=== PATIENT | male | born 1975 | race Caucasian/White ===

== ENCOUNTER 2016-12-15 19:35 | Emergency (ER) | payer SELFPAY ==
[~2016-12-15] VITALS: Ht 172.7 cm; Wt 117.9 kg
[~2016-12-15 19:35] MED LIST: ALPR0.5T PO; APIX5TAB3 PO; ASPI325T8 PO; ATORVASTATIN CA80 MG PO; CARV25TA2 PO; CHOL100013 PO; FISH12002 PO; HYDR-2762 PO; LISI10TA2 PO; PRAS10TA9 PO; UBID30CA9 PO
[2016-12-15] MEDS ORDERED: ONDANSETRON ODT 4 MG TAB.RAPDIS ONE (19:44)
[2016-12-15] MEDS ORDERED: ASPIRIN 81 MG TAB.CHEW ONE (19:45)
[2016-12-15] MEDS ORDERED: IV NORMAL SALINE 1,000ML 500 ML IV SCH (19:55)
[2016-12-15] MEDS ORDERED: MORPHINE SULFATE 4 MG/ML DISP.SYRIN. ONE (19:55)
[2016-12-15] MEDS ORDERED: NITROGLYCERIN SUBLINGUAL 0.4 MG BOTTLE OF 25. SL ONE (19:55)
[2016-12-15] MEDS: MORPHINE SULFATE 4 MG/ML DISP.SYRIN. IV/SQ PRN ×2 (19:56→20:50)
[2016-12-15] MEDS: NITROGLYCERIN SUBLINGUAL 0.4 MG BOTTLE OF 25. SL PRN ×2 (19:56→20:36)
[2016-12-15 20:14] LABS: BASO # 0.2 x10^3/uL (0.0-0.2); BASO % 1 % (0-3); EOS % 0 % (0-3); HEMATOCRIT 52.7 % (39.0-53.0); LYMPH # 1.7 x10^3/uL (1.0-4.8); LYMPH % 10 % (24-48); MEAN CORPUSCULAR HEMOGLOBIN 31 pg (25-35); MEAN CORPUSCULAR HGB CONC 34 g/dL (31-37); MEAN CORPUSCULAR VOLUME 90 fL (79-100); MONO # 0.5 x10^3/uL (0.0-1.1); MONO % 3 % (0-9); NEUT # 15.3 x10^3uL (1.8-7.7); NEUT % 87 % (31-73); PLATELET COUNT 231 x10^3/uL (140-400); RED BLOOD COUNT 5.85 x10^6/uL (4.30-5.70); RED CELL DISTRIBUTION WIDTH 13.5 % (11.5-14.5); WHITE BLOOD COUNT 17.6 x10^3/uL (4.0-11.0)
[2016-12-15] MEDS ORDERED: ASPIRIN 81 MG TAB.CHEW PO ONE (20:15)
[2016-12-15] MEDS ORDERED: ONDANSETRON ODT 4 MG TAB.RAPDIS PO ONE (20:15)
[2016-12-15] MEDS ORDERED: FAMOTIDINE 20 MG/2 ML VIAL IVP ONE (20:15)
[2016-12-15 20:39] LABS: ALBUMIN 4.3 g/dL (3.4-5.0); ALBUMIN/GLOBULIN RATIO 0.9 (1.0-1.7); CALCIUM 10.5 mg/dL (8.5-10.1); CREATININE 1.2 mg/dL (0.7-1.3); GFR 66.1; MAGNESIUM 2.1 mg/dL (1.8-2.4); POTASSIUM 4.7 mmol/L (3.5-5.1); TOTAL BILIRUBIN 0.5 mg/dL (0.2-1.0); TOTAL PROTEIN 9.2 g/dL (6.4-8.2)
--- NOTE | 2016-12-15 21:02 | EKG ---
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
[2016-12-15] MEDS: HYDROmorphone PF 1 MG/ML DISP.SYRIN IV/SQ PRN ×2 (21:03→21:58)
[2016-12-15 21:29] LABS: % EOS 1 % (0-5); % LYMPHS 12 % (24-48); % MONOS 5 % (0-10); % SEGS 82 % (35-66); OVALOCYTES OCC; PLT ESTIMATE ADEQUATE (ADEQUATE); POLYCHROMASIA SLIGHT; SCHISTOCYTES OCC
[2016-12-15] MEDS ORDERED: CONTRAST GIVEN MC PRN (21:30)
[2016-12-15] MEDS ORDERED: IOHEXOL 300 MG/ML 75 ML VIAL. IV ONE (21:45)
[2016-12-15 22:02] VITALS: BP 137/80
[2016-12-15 22:20] LABS: AMPHETAMINE/METHAMPHETAMINE NEG (NEG); BARBITURATES NEG (NEG); BENZODIAZEPINES POS (NEG); CANNABINOIDS NEG (NEG); COCAINE NEG (NEG); METHADONE NEG (NEG); OPIATES POS (NEG); PHENCYCLIDINE NEG (NEG)
--- NOTE | 2016-12-15 22:25 | RAD ---
CTA chest, CT abdomen and pelvis with intravenous contrast History: Left-sided abdominal pain with cramping, chest pain, nausea and vomiting Technique: After bolus of intravenous contrast, CT imaging was performed of the chest, abdomen, pelvis. Multiplanar reconstruction images to include MIP reconstruction images are submitted. Exposure: One or more of the following individualized dose reduction techniques were utilized for this examination: 1. Automated exposure control 2. Adjustment of the mA and/or kV according to patient size 3. Use of iterative reconstruction technique. Contrast: 75 cc Omnipaque 300 Comparison: Abdomen and pelvis exam September 09, 2015 and chest CTA July 14, 2015 CHEST: Findings: [ ] There is some motion degradation. Accurate evaluation for pulmonary embolic disease limited due to poor bolus of contrast in the pulmonary arteries, cannot exclude small filling defects such as of the lingula and left lower lobe. No significantly enlarged nodes are identified of the chest. Thoracic aortic caliber is within normal limits without intraluminal flap. There is left electronic cardiac device. There are coronary stents. There is no abnormal pericardial or pleural fluid, pneumothorax, lobar infiltrate. Major airways are patent. Impression: 1. Exam is limited for accurate evaluation for pulmonary embolic disease due to suboptimal bolus of contrast in the pulmonary arteries during exam and motion, cannot exclude small defects of the lingula and left lower lobe on this exam. Ventilation/perfusion exam or repeat exam could be indicated if suspicion for pulmonary embolic disease. 2. There is no evidence of thoracic aortic dissection. CT abdomen and pelvis: There is hepatic steatosis. Both kidneys enhance, no hydronephrosis. Small hypodense lesion mid left kidney 0.7 cm is otherwise difficult to accurately characterize although density measurements more suggestive of cyst 17 Hounsfield units. There is left adrenal nodule 1.8 cm AP, similar in size. Accurate evaluation of bowel is limited without oral contrast. There is no significant bowel dilatation, free air or free fluid. Gallbladder is present without obvious intraluminal abnormality by CT. IMPRESSION: 1. No acute abnormality is identified of the abdomen or pelvis. 2. There is hepatic steatosis. 3. There is stable left adrenal nodule comparing with September 09, 2015 exam. Electronically signed by: Luis Guerra MD (12/15/2016 10:22 PM) [facility]
[2016-12-15] MEDS ORDERED: IV NORMAL SALINE 1,000ML 1,000 ML IV ONE (22:45)
--- NOTE | 2016-12-15 23:02 | PHYS DOC ---
General Chief Complaint: NAUSEA/VOMITING/DIARRHEA Stated Complaint: VOMITING,HEART ISSUES Time Seen by MD: 19:55 Source: patient Exam Limitations: no limitations Problems: History of Present Illness Initial Comments Pt is 41/M to ED with extensive cardiac history c/o abdominal pain, n/v, chest pain. Pt states today at 11am he had sudden onset severe LUQ abdominal pain with n/v. States he's been vomitting "every 10 minutes" since this morning complaining of severe LUQ pain. States after a few hours he developed chest tightness, described as tightness across anterior chest. CP not like prior cardiac pain, pt has chronic dyspnea worse with today's symptoms. No arm/neck symptoms, hasn 't had anything to eat all day last BM this am "normal." In severe distress on arrival dry heaving and diaphoretic, tachypneic/tachycardic. No prearrival treatment follows with Dr Servin Cardiology. Timing/Duration: 4-6 hours, constant Severity: severe Modifying Factors: improves with other Associated Symptoms: chest pain, diaphoresis, nausea/vomiting, shortness of breath, other Allergies: Coded Allergies: No Known Drug Allergies (Unverified , 09/09/15) Past Medical History Medical History: other (anxiety, DVT, HLP, HTN, CAD, ID, v-fib, OA) Surgical History: angioplasty (2016), other (pacer/defibrillator) Family History Significant Family History: no pertinent family hx Social History Smoker: cigarettes Alcohol: rarely Drugs: marijuana Review of Systems Constitutional: denies chills, diaphoresis, denies fever, malaise Respiratory: denies cough, shortness of breath, denies wheezing Cardiovascular: chest pain, denies edema, denies palpitations, denies syncope Gastrointestinal: abdominal pain, denies constipation, denies diarrhea, nausea , vomiting Genitourinary: denies dysuria, denies frequency, denies hematuria Musculoskeletal: denies back pain, denies joint swelling, denies neck pain Psychiatric/Neurological: denies headache, denies numbness, denies paresthesia Hematologic/Lymphatic: see HPI Physical Exam General Appearance: severe distress (dry heaving, diaphoretic/sob) Eyes: bilateral eye normal inspection, bilateral eye PERRL, bilateral eye EOMI Ear, Nose, Throat: hearing grossly normal, normal ENT inspection, normal pharynx Neck: non-tender, supple Respiratory: normal breath sounds, no respiratory distress Cardiovascular: normal peripheral pulses, tachycardia Gastrointestinal: soft (ND, diffusely TTP with guarding no rebound/masses) Back: no CVA tenderness, no vertebral tenderness Extremities: normal range of motion, non-tender, normal inspection Neurologic/Psychiatric: folder tier II-XII nml as tested, no motor/sensory deficits, alert, oriented x 3, other (very anxious) Skin: normal color, diaphoresis Orders, Labs, Meds EKG: sinus tachycardia 100 bpm, nonspecific interventricular delay with elevated j-point and questionable elevation anteriorly, baseline wander artifact present no prior immediately available. Interpreted by me. EKG reviewed by me at 1999, given pt history I requested neuropsychology division chief cardiology paged to review. Cardio repaged, apparently in qc lab technician I discussed pt with Dr Rodriguez 2042. He reviewed EKG and confirmed no STEMI, advised if pain could not be controlled transfer to [facility]. Pt no relief with NTG SL (+ headache), no improvement with 4mg morphine, 50mcg fentanyl, ultimately some relief with dilaudid 0.5mg x 2. WBC 17.6, d-dimer 1.14 otherwise labs reassuring. CTA chest prompted by d- dimer and pt history, as well as CT abd/pelvis. PATIENT: TIMOTHY HOGAN ACCOUNT: [id number] : 1975 LOCATION: ER AGE: 41 SEX: M EXAM STATUS: REG ER ORD. PHYSICIAN: BENITA YE DO REASON: cp, elev d-dimer, tachycardia PROCEDURE: CT ANGIOGRAPHY CHEST CTA chest, CT abdomen and pelvis with intravenous contrast History: Left-sided abdominal pain with cramping, chest pain, nausea and vomiting Technique: After bolus of intravenous contrast, CT imaging was performed of the chest, abdomen, pelvis. Multiplanar reconstruction images to include MIP reconstruction images are submitted. Exposure: One or more of the following individualized dose reduction techniques were utilized for this examination: 1. Automated exposure control 2. Adjustment of the mA and/or kV according to patient size 3. Use of iterative reconstruction technique. Contrast: 75 cc Omnipaque 300 Comparison: Abdomen and pelvis exam September 09, 2015 and chest CTA July 14, 2015 CHEST: Findings: [ ] There is some motion degradation. Accurate evaluation for pulmonary embolic disease limited due to poor bolus of contrast in the pulmonary arteries, cannot exclude small filling defects such as of the lingula and left lower lobe. No significantly enlarged nodes are identified of the chest. Thoracic aortic caliber is within normal limits without intraluminal flap. There is left electronic cardiac device. There are coronary stents. There is no abnormal pericardial or pleural fluid, pneumothorax, lobar infiltrate. Major airways are patent. Impression: 1. Exam is limited for accurate evaluation for pulmonary embolic disease due to suboptimal bolus of contrast in the pulmonary arteries during exam and motion, cannot exclude small defects of the lingula and left lower lobe on this exam. Ventilation/perfusion exam or repeat exam could be indicated if suspicion for pulmonary embolic disease. 2. There is no evidence of thoracic aortic dissection. CT abdomen and pelvis: There is hepatic steatosis. Both kidneys enhance, no hydronephrosis. Small hypodense lesion mid left kidney 0.7 cm is otherwise difficult to accurately characterize although density measurements more suggestive of cyst 17 Hounsfield units. There is left adrenal nodule 1.8 cm AP, similar in size. Accurate evaluation of bowel is limited without oral contrast. There is no significant bowel dilatation, free air or free fluid. Gallbladder is present without obvious intraluminal abnormality by CT. IMPRESSION: 1. No acute abnormality is identified of the abdomen or pelvis. 2. There is hepatic steatosis. 3. There is stable left adrenal nodule comparing with September 09, 2015 exam. Electronically signed by: Delfina Guerra MD (12/15/2016 10:22 PM) [facility] DICTATED AND SIGNED BY: DELFINA GUERRA MD DATE: 12/15/162221 CC: KIANA AARON MD; BENITA YE DO ~ PATIENT: TIMOTHY HOGAN ACCOUNT: [id number] : 1975 LOCATION: ER AGE: 41 SEX: M EXAM STATUS: REG ER ORD. PHYSICIAN: BENITA YE DO REASON: LUQ pain, n/v PROCEDURE: CT ABD PELV W/ IV CONTRST ONLY CTA chest, CT abdomen and pelvis with intravenous contrast History: Left-sided abdominal pain with cramping, chest pain, nausea and vomiting Technique: After bolus of intravenous contrast, CT imaging was performed of the chest, abdomen, pelvis. Multiplanar reconstruction images to include MIP reconstruction images are submitted. Exposure: One or more of the following individualized dose reduction techniques were utilized for this examination: 1. Automated exposure control 2. Adjustment of the mA and/or kV according to patient size 3. Use of iterative reconstruction technique. Contrast: 75 cc Omnipaque 300 Comparison: Abdomen and pelvis exam September 09, 2015 and chest CTA July 14, 2015 CHEST: Findings: [ ] There is some motion degradation. Accurate evaluation for pulmonary embolic disease limited due to poor bolus of contrast in the pulmonary arteries, cannot exclude small filling defects such as of the lingula and left lower lobe. No significantly enlarged nodes are identified of the chest. Thoracic aortic caliber is within normal limits without intraluminal flap. There is left electronic cardiac device. There are coronary stents. There is no abnormal pericardial or pleural fluid, pneumothorax, lobar infiltrate. Major airways are patent. Impression: 1. Exam is limited for accurate evaluation for pulmonary embolic disease due to suboptimal bolus of contrast in the pulmonary arteries during exam and motion, cannot exclude small defects of the lingula and left lower lobe on this exam. Ventilation/perfusion exam or repeat exam could be indicated if suspicion for pulmonary embolic disease. 2. There is no evidence of thoracic aortic dissection. CT abdomen and pelvis: There is hepatic steatosis. Both kidneys enhance, no hydronephrosis. Small hypodense lesion mid left kidney 0.7 cm is otherwise difficult to accurately characterize although density measurements more suggestive of cyst 17 Hounsfield units. There is left adrenal nodule 1.8 cm AP, similar in size. Accurate evaluation of bowel is limited without oral contrast. There is no significant bowel dilatation, free air or free fluid. Gallbladder is present without obvious intraluminal abnormality by CT. IMPRESSION: 1. No acute abnormality is identified of the abdomen or pelvis. 2. There is hepatic steatosis. 3. There is stable left adrenal nodule comparing with September 09, 2015 exam. Electronically signed by: Delfina Guerra MD (12/15/2016 10:22 PM) [facility] DICTATED AND SIGNED BY: DELFINA GUERRA MD DATE: 12/15/162221 CC: KIANA AARON MD; BENITA YE DO ~ Pt rechecked after CT/lipase resulted (lipase required send out to [place] due to equipment issue). He is sitting up on side of bed relaxed, denies any symptoms. Due to incomplete vascular evaluation with CTA and less than 12 hours since CP onset I recommended inpatient admission. Pt states he's feeling better, states his chest discomfort was due to prolonged bending over toilet with emesis. Pt refuses admission. I discussed need for V/Q, serial CE, as PE and ACS not ruled out. Risks and benefits of staying vs leaving discussed at length with pt, benefits of staying possibly life-saving and possible risks of leaving loss of quality of life and . Pt will sign out AMA expresses agreement/understanding with discharge against medical advice discharge plan see departure. Departure Time of Disposition: 23:28 Disposition: 07 AGAINST MEDICAL ADVICE Diagnosis: abdominal pain, chest pain, elevated d-dimer Condition: IMPROVED Patient Instructions: Discharge Against Medical Advice, Viral Gastroenteritis, [id number] Additional Instructions: As discussed, given the timing of onset of your symptoms an acute blockage of a coronary artery has not been definitively ruled out. Inpatient observation has been offered to you and you have declined. Risks and benefits of staying versus leaving have been discussed with you and your questions have been answered. You understand that you may return to this ED at any time for further evaluation and treatment. No driving or operating machinery while sedated with pain medications. Clear liquids today, advance diet slowly starting tomorrow as tolerated. Tylenol #3 and zofran odt start packs have been sent home with you. Rx: zofran odt, norco 5mg #15 Take over the counter stool softeners to avoid constipation associated with pain meds. Take norco with food. Follow up with your doctor Sunday morning for recheck. Return to ED as needed. BENITA YE DO Dec 15, 2016 23:02
[2016-12-15] MEDS ORDERED: ACETAMINOPHEN/CODEINE 300/30MG 4TABLET STARTPACK. PO ONE ×2 (23:30→23:41)
[2016-12-15] MEDS ORDERED: ONDANSETRON 4MG ODT 4TABLET STARTPACK. PO ONE ×2 (23:30→23:41)
[2016-12-15] MEDS ORDERED: HYDR-971 PO (23:34)
[2016-12-15] MEDS ORDERED: ONDA4TAB10 PO (23:34)
--- NOTE | 2016-12-16 08:24 | RAD ---
Portable chest, 12/15/2016: History: Chest and abdominal pain with nausea and vomiting Comparison is made to a study from 12/24/2015. A left-sided transvenous pacemaker remains in place with 3 unchanged leads extending into the heart. The heart size and pulmonary vascularity are normal. No pulmonary infiltrates are seen. There is no evidence of pleural fluid. IMPRESSION: No acute cardiopulmonary abnormality is detected.
== END 2016-12-15 23:45 | disposition left against medical advice (07) ==
LOC: ER 19:35
DX: R10.12 Left upper quadrant pain (principal); R07.9 Chest pain, unspecified; R79.89 Other specified abnormal findings of blood chemistry; E78.5 Hyperlipidemia, unspecified; I25.10 Atherosclerotic heart disease of native coronary artery without angina pectoris; M19.90 Unspecified osteoarthritis, unspecified site; I10 Essential (primary) hypertension; F41.9 Anxiety disorder, unspecified; I25.2 Old myocardial infarction; I48.91 Unspecified atrial fibrillation; F17.210 Nicotine dependence, cigarettes, uncomplicated; F12.10 Cannabis abuse, uncomplicated; Z86.718 Personal history of other venous thrombosis and embolism; Z98.61 Coronary angioplasty status
CPT/HCPCS: 36415; 71010; 71275; 74177; 80053; 80307; 82550; 83690; 83735; 83880; 84484; 85007; 85025; 85379; 93005; 96361; 96374; 96375; 96376; 99285; G0480; J1170; J2270; J3010; Q0162; Q9967; S0028; G0479; J7030

== ENCOUNTER 2017-10-19 14:20 | Emergency (ER) | payer SELFPAY ==
[~2017-10-19] VITALS: Ht 172.7 cm; Wt 117.9 kg
[~2017-10-19 14:20] MED LIST changes: +HYDR-971 PO; +ONDA4TAB10 PO
[2017-10-19] MEDS ORDERED: ASPIRIN 81 MG TAB.CHEW PO ONE (14:45)
[2017-10-19] MEDS ORDERED: IV NORMAL SALINE 1,000ML 1,000 ML IV SCH (14:45)
[2017-10-19] MEDS ORDERED: HYDROmorphone PF 1 MG/ML DISP.SYRIN IV/SQ PRN (14:45)
[2017-10-19] MEDS ORDERED: ONDANSETRON PF 4 MG/2 ML VIAL. IV ONE (14:45)
[2017-10-19 14:50] LABS: BASO # 0.2 x10^3/uL (0.0-0.2); BASO % 2 % (0-3); EOS # 0.3 x10^3/uL (0.0-0.7); EOS % 2 % (0-3); HEMATOCRIT 44.4 % (39.0-53.0); HEMOGLOBIN 15.2 g/dL (13.0-17.5); LYMPH # 2.8 x10^3/uL (1.0-4.8); LYMPH % 26 % (24-48); MEAN CORPUSCULAR HEMOGLOBIN 31 pg (25-35); MEAN CORPUSCULAR HGB CONC 34 g/dL (31-37); MEAN CORPUSCULAR VOLUME 91 fL (79-100); MONO # 0.8 x10^3/uL (0.0-1.1); MONO % 8 % (0-9); NEUT # 6.6 x10^3uL (1.8-7.7); NEUT % 62 % (31-73); PLATELET COUNT 170 x10^3/uL (140-400); RED CELL DISTRIBUTION WIDTH 12.6 % (11.5-14.5); WHITE BLOOD COUNT 10.6 x10^3/uL (4.0-11.0)
--- NOTE | 2017-10-19 14:55 | RAD ---
Exam: AP portable chest History: Chest pain. Comparison: April 17, 2016. Findings: The heart and mediastinal structures are within normal limits for size. Lungs are without infiltrate. No pleural effusion or pneumothorax is identified. 3-lead AICD by left subclavian approach is seen. Impression: 1. No acute cardiopulmonary process. Electronically signed by: Edre Artis MD (10/19/2017 2:51 PM) [place] [id number]
--- NOTE | 2017-10-19 15:02 | PHYS DOC ---
Past History Past Medical History: Anxiety, CAD, CHF, DVT, High Cholesterol, Hypertension, ND Past Surgical History: Angioplasty, Coronary Bypass Surgery, Pacemaker, Other Smoking: Cigarettes Alcohol Use: Rarely Drug Use: Marijuana Adult General Chief Complaint Chief Complaint: CHEST PAIN HPI HPI Patient is a 42 year old male who presents with complaint of right-sided chest pain. Patient states his symptoms are proxy one hour prior to arrival. Patient states that the pain is located on the right side of his chest and radiates towards her jaw. Patient states that the pain is tight and on my evaluation rates it as 8 out of 10. Patient states that he took nitroglycerin at home and aspirin but states that this has not helped with his pain. Patient has history of coronary artery disease and has had a total of 7 stents placed in his coronary arteries. Patient states that he last had endovascular intervention by Dr. Servin at [facility] in 2016. The patient was recently seen in the emergency department here at [facility] in December 2016. At that time the patient left the emergency department AGAINST MEDICAL ADVICE as he stated he felt better after treatment and did not wish to be admitted. 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 Patient denies fever or productive cough. Review of Systems Review of Systems Constitutional: Denies fever or chills [] Eyes: Denies change in visual acuity, redness, or eye pain [] HENT: Denies nasal congestion or sore throat [] Respiratory: Shortness of breath, denies cough[] Cardiovascular: Chest pain, denies edema[] GI: Denies abdominal pain, nausea, vomiting, bloody stools or diarrhea [] : Denies dysuria or hematuria [] Musculoskeletal: Denies back pain or joint pain [] Integument: Denies rash or skin lesions [] Neurologic: Denies headache, focal weakness or sensory changes [] All other systems were reviewed and found to be within normal limits, except as documented in this note. Current Medications Current Medications Current Medications Medications (Trade) Dose Ordered Sig/Tod Start Time Stop Time Status Last Admin Dose Admin Aspirin (Children'S Aspirin) 324 mg 1X ONCE 10/19/17 14:45 10/19/17 14:47 DC Hydromorphone HCl (Dilaudid) 1 mg PRN Q15MIN PRN 10/19/17 14:45 10/20/17 14:44 Ondansetron HCl (Zofran) 4 mg 1X ONCE 10/19/17 14:45 10/19/17 14:47 DC Sodium Chloride 1,000 ml @ 1,000 mls/hr Q1H 10/19/17 14:45 10/19/17 15:44 Allergies Allergies Allergies Coded Allergies Type Severity Reaction Last Updated Verified No Known Drug Allergies 09/09/15 No Physical Exam Physical Exam Constitutional: Alert, afebrile, appears in moderate discomfort. [] HENT: Normocephalic, atraumatic, bilateral external ears normal, oropharynx moist, no oral exudates, nose normal. [] Eyes: PERRLA, EOMI, conjunctiva normal, no discharge. [] Neck: Normal range of motion, no tenderness, supple, no stridor. [] Cardiovascular:Heart rate regular rhythm, no murmur [] Lungs & Thorax: Bilateral breath sounds clear to auscultation [] Abdomen: Bowel sounds normal, soft, no tenderness, no masses, no pulsatile masses. [] Skin: Warm, dry, no erythema, no rash. [] Back: No tenderness, no CVA tenderness. [] Extremities: No tenderness, no cyanosis, no clubbing, ROM intact, no edema. [] Neurologic: Alert and oriented X 3, normal motor function, normal sensory function, no focal deficits noted. [] Current Patient Data Vital Signs Vital Signs Date Time Temp Pulse Resp B/P (MAP) Pulse Ox O2 Delivery O2 Flow Rate FiO2 10/19/17 14:27 98.2 80 20 98 Room Air Lab Results Laboratory Tests Test 10/19/17 14:30 White Blood Count 10.6 x10^3/uL Red Blood Count 4.90 x10^6/uL Hemoglobin 15.2 g/dL Hematocrit 44.4 % Mean Corpuscular Volume 91 fL Mean Corpuscular Hemoglobin 31 pg Mean Corpuscular Hemoglobin Concent 34 g/dL Red Cell Distribution Width 12.6 % Platelet Count 170 x10^3/uL Neutrophils (%) (Auto) 62 % Lymphocytes (%) (Auto) 26 % Monocytes (%) (Auto) 8 % Eosinophils (%) (Auto) 2 % Basophils (%) (Auto) 2 % Neutrophils # (Auto) 6.6 x10^3uL Lymphocytes # (Auto) 2.8 x10^3/uL Monocytes # (Auto) 0.8 x10^3/uL Eosinophils # (Auto) 0.3 x10^3/uL Basophils # (Auto) 0.2 x10^3/uL Prothrombin Time 10.0 SEC Prothromb Time International Ratio 1.0 Activated Partial Thromboplast Time 23 SEC Sodium Level 137 mmol/L Potassium Level 4.3 mmol/L Chloride Level 103 mmol/L Carbon Dioxide Level 27 mmol/L Anion Gap 7 Blood Urea Nitrogen 12 mg/dL Creatinine 1.1 mg/dL Estimated GFR (Cockcroft-Gault) 72.7 BUN/Creatinine Ratio 11 Glucose Level 182 mg/dL Calcium Level 8.9 mg/dL Magnesium Level 2.0 mg/dL Total Bilirubin 0.3 mg/dL Aspartate Amino Transf (AST/SGOT) 23 U/L Alanine Aminotransferase (ALT/SGPT) 32 U/L Alkaline Phosphatase 94 U/L Creatine Kinase 106 U/L Creatine Kinase MB (Mass) 3.7 ng/mL Creatine Kinase MB Relative Index 3.5 % Troponin I Quantitative 0.468 ng/mL Total Protein 7.5 g/dL Albumin 3.4 g/dL Albumin/Globulin Ratio 0.8 Current Medications Medications (Trade) Dose Ordered Sig/Tod Route PRN Reason Start Time Stop Time Status Last Admin Dose Admin Aspirin (Children'S Aspirin) 324 mg 1X ONCE PO 10/19/17 14:45 10/19/17 14:47 DC Hydromorphone HCl (Dilaudid) 1 mg PRN Q15MIN PRN IV/SQ PAIN GREATER THAN 3/10 10/19/17 14:45 10/20/17 14:44 10/19/17 15:07 Sodium Chloride 1,000 ml @ 1,000 mls/hr Q1H IV 10/19/17 14:45 10/19/17 15:44 DC 10/19/17 15:07 Ondansetron HCl (Zofran) 4 mg 1X ONCE IV 10/19/17 14:45 10/19/17 14:47 DC 10/19/17 15:08 Heparin Sodium/ Dextrose 500 ml @ 0 mls/hr CONT PRN IV SEE I/O RECORD 10/19/17 15:15 10/19/17 15:20 DC Heparin Sodium (Porcine) (Heparin Sodium) 4,000 unit 1X ONCE IV 10/19/17 15:30 10/19/17 15:30 DC Heparin Sodium/ Dextrose 500 ml @ 0 mls/hr CONT PRN IV SEE I/O RECORD 10/19/17 15:15 10/19/17 15:28 Heparin Sodium (Porcine) (Heparin Sodium) 8,000 unit 1X ONCE IV 10/19/17 15:30 10/19/17 15:30 DC Nitroglycerin/ Dextrose 250 ml @ 0 mls/hr 1X ONCE IV 10/19/17 15:30 10/19/17 15:31 DC 10/19/17 15:31 Heparin Sodium/ Dextrose 500 ml @ As Directed STK-MED ONCE IV 10/19/17 15:20 10/19/17 15:22 DC Heparin Sodium (Porcine) (Heparin Sodium) 4,000 unit 1X ONCE IV 10/19/17 15:30 10/19/17 15:31 DC 10/19/17 15:33 EKG EKG Interpreted by me: Heart is 78, ventricularly paced rhythm, no acute ST elevations, no acute changes from previous EKG on December 15, 2016[] Radiology/Procedures Radiology/[place] [address] IMAGING REPORT Signed PATIENT: TIMOTHY HOGAN ACCOUNT: [id number] : 1975 LOCATION: ER AGE: 42 SEX: M EXAM STATUS: PRE ER ORD. PHYSICIAN: DELON ZUNIGA MD REASON: chest pain PROCEDURE: PORTABLE CHEST 1V Exam: AP portable chest History: Chest pain. Comparison: April 17, 2016. Findings: The heart and mediastinal structures are within normal limits for size. Lungs are without infiltrate. No pleural effusion or pneumothorax is identified. 3-lead AICD by left subclavian approach is seen. Impression: 1. No acute cardiopulmonary process. Electronically signed by: Eder Rodríguez MD (10/19/2017 2:51 PM) [place] [id number] DICTATED AND SIGNED BY: EDER RODRÍGUEZ MD DATE: 10/19/17 1449 CC: DELON ZUNIGA MD; KIANA AARON MD ~ [] Course & Med Decision Making Course & Med Decision Making Pertinent Labs and Imaging studies reviewed. (See chart for details) Aspirin withheld this patient took full-strength aspirin prior to arrival. Patient found to have an elevated troponin level of 0.468 causing concern for NSTEMI. Patient started on IV heparin and nitroglycerin. Pain treated with Dilaudid. 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 I spoke with the transfer line at [facility] patient was accepted by Dr. Schwartz for transfer. Patient will be transferred by ground EMS for urgent transfer to . Critical care time excluding procedures: 40 minutes Dragon Disclaimer Dragon Disclaimer This electronic medical record was generated, in whole or in part, using a voice recognition dictation system. Departure Departure: Impression: Primary Impression: NSTEMI (non-ST elevated myocardial infarction) Disposition: XFER SHT-TRM HOSP Condition: GUARDED Referrals: KIANA AARON MD (PCP) DELON ZUNIGA MD Oct 19, 2017 15:02
[2017-10-19 15:12] LABS: ALBUMIN 3.4 g/dL (3.4-5.0); ALBUMIN/GLOBULIN RATIO 0.8 (1.0-1.7); CALCIUM 8.9 mg/dL (8.5-10.1); CREATININE 1.1 mg/dL (0.7-1.3); GFR 72.7; POTASSIUM 4.3 mmol/L (3.5-5.1); TOTAL BILIRUBIN 0.3 mg/dL (0.2-1.0); TOTAL PROTEIN 7.5 g/dL (6.4-8.2)
[2017-10-19] MEDS ORDERED: HEPARIN 25,000UTS/500ML PREMIX 500 ML IV PRN ×2 (15:15)
[2017-10-19] MEDS ORDERED: HEPARIN 25,000UTS/500ML PREMIX 500 ML IV ONE (15:20)
[2017-10-19] MEDS ORDERED: NITROGLYCERIN PREMIX 250 ML IV ONE (15:30)
[2017-10-19] MEDS ORDERED: HEPARIN for IV BOLUS 10,000 UNIT/10 ML VIAL. IV ONE ×3 (15:30)
[2017-10-19 16:00] VITALS: BP 137/74
--- NOTE | 2017-10-20 06:32 | EKG ---
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
== END 2017-10-19 16:10 | disposition short-term general hospital (02) ==
LOC: ER 14:20
DX: I21.4 Non-ST elevation (NSTEMI) myocardial infarction (principal); F41.9 Anxiety disorder, unspecified; I11.0 Hypertensive heart disease with heart failure; I25.2 Old myocardial infarction; I50.9 Heart failure, unspecified; I25.810 Atherosclerosis of coronary artery bypass graft(s) without angina pectoris; F17.210 Nicotine dependence, cigarettes, uncomplicated; Z86.718 Personal history of other venous thrombosis and embolism; Z98.61 Coronary angioplasty status; Z95.0 Presence of cardiac pacemaker
CPT/HCPCS: 36415; 71045; 80053; 82553; 83735; 84484; 85025; 85610; 85730; 93005; 96365; 96368; 96374; 96375; 96376; 99291; J1170; J1644; J2405; J3490; J7030

== ENCOUNTER 2018-06-06 20:30 | Emergency (ER) | payer MEDICARE ==
[~2018-06-06] VITALS: Ht 172.7 cm; Wt 92.5 kg
[~2018-06-06 20:30] MED LIST changes: -HYDR-2762 PO; +HYDR-2765 PO; +HYDR-3165 PO; -HYDR-971 PO
[2018-06-06] MEDS ORDERED: IV RINGERS SOLUTION,LACTATED 1,000 ML IV SCH (20:35)
--- NOTE | 2018-06-06 20:35 | ED.ADGEN ---
Past History Past Medical History: Anxiety, CAD, CHF, DVT, High Cholesterol, Hypertension, NC Past Surgical History: Angioplasty, Coronary Bypass Surgery, Pacemaker, Other Smoking: Cigarettes Alcohol Use: Rarely Drug Use: Marijuana Adult General Chief Complaint Chief Complaint ".. I had an episode of chest discomfort and dizzy.. I got bad cardiac stuff.. prior NC, x5... maybe 10 stents.. and even got a pacer 2 yrs ago... " HPI HPI Patient is a 43 year old male who presents with above hx and complaints chest discomfort, dizziness, near syncope. Patient has extensive cardiac history with NC, 10 stents, and pacer placement at [facility]. Patient's pacer placement was approximately 2 years ago. Patient does continue to smoke. Patient does have history of diabetes, hyperlipidemia and hypertension. Has past history DVT in heart failure. No recent travel. No history of drug use. Does have a strong family history of NC in mother age 55, NC in father age 38 NC in brother age 42, NC in grandfather in the age 30s. Patient states he has been compliant with his hypertensive meds and Plavix. Review of Systems Review of Systems Constitutional: Denies fever or chills [] Eyes: Denies change in visual acuity, redness, or eye pain [] HENT: Denies nasal congestion or sore throat [] Respiratory: Denies cough or shortness of breath [] Cardiovascular: No additional information not addressed in HPI [] GI: Denies abdominal pain, nausea, vomiting, bloody stools or diarrhea [] : Denies dysuria or hematuria [] Musculoskeletal: Denies back pain or joint pain [] Integument: Denies rash or skin lesions [] Neurologic: Denies headache, focal weakness or sensory changes [] Endocrine: Denies polyuria or polydipsia [] All other systems were reviewed and found to be within normal limits, except as documented in this note. Family History Family History Multiple family members with MIs Current Medications Current Medications Current Medications Medications (Trade) Dose Ordered Sig/Tod Start Time Stop Time Status Last Admin Dose Admin Albuterol/ Ipratropium (Duoneb) 3 ml RTQID 06/07/18 08:00 06/07/18 08:00 DC Aspirin (Children'S Aspirin) 81 mg STK-MED ONCE 06/06/18 20:45 06/06/18 20:46 DC Clopidogrel Bisulfate (Plavix) 75 mg DAILY 06/07/18 09:00 06/07/18 09:00 DC Enoxaparin Sodium (Lovenox 100mg Syringe) 90 mg BID 06/07/18 09:00 06/07/18 09:00 DC Lactated Ringer's 1,000 ml @ 100 mls/hr Q10H 06/06/18 20:35 06/07/18 00:39 DC 06/06/18 20:47 100 MLS/HR Morphine Sulfate (Morphine 4mg Syringe) 2 mg PRN Q2HR PRN 06/06/18 23:00 06/07/18 00:39 DC Nitroglycerin (Nitro-Bid Oint) 1 inch TID 06/07/18 09:00 06/07/18 09:00 DC Ondansetron HCl (Zofran) 4 mg PRN Q4HRS PRN 06/06/18 23:00 06/07/18 00:39 DC See nursing for home medications Allergies Allergies Allergies Coded Allergies Type Severity Reaction Last Updated Verified No Known Drug Allergies 09/09/15 No Physical Exam Physical Exam Constitutional: Moderately acute distress, non-toxic appearance. [] HENT: Normocephalic, atraumatic, bilateral external ears normal, oropharynx moist, no oral exudates, nose normal. [] Eyes: PERRLA, EOMI, conjunctiva normal, no discharge. [] Neck: Normal range of motion, no tenderness, supple, no stridor. [] More than 17 inches circumference. Some palpable nodes. No bruits appreciated. Cardiovascular:Heart rate regular rhythm, no murmur [] Lungs & Thorax: Bilateral breath sounds with apex with scattered wheezes on auscultation []. Pacer scar on left. Abdomen: Bowel sounds normal, soft, no tenderness, no masses, no pulsatile masses. Obese. Skin: Warm, dry, no erythema, no rash. [] Back: No tenderness, no CVA tenderness. [] Extremities: No tenderness, no cyanosis, no clubbing, ROM intact, trace ankle edema. []No cording. Neurologic: Alert and oriented X 3, normal motor function, normal sensory function, no focal deficits noted. []DTR+ 2 brachial and patella. No drift. It Risk Advisor equal. Ambulatory without problems. Psychologic: Affect anxious, judgement normal, mood normal. [] Current Patient Data Vital Signs Vital Signs Date Time Temp Pulse Resp B/P (MAP) Pulse Ox O2 Delivery O2 Flow Rate FiO2 06/06/18 23:08 75 16 134/82 (99) 98 Room Air 06/06/18 20:30 98.0 Lab Results Laboratory Tests Test 06/06/18 20:39 06/06/18 22:00 White Blood Count 9.0 x10^3/uL (4.0-11.0) Red Blood Count 4.50 x10^6/uL (4.30-5.70) Hemoglobin 14.1 g/dL (13.0-17.5) Hematocrit 40.4 % (39.0-53.0) Mean Corpuscular Volume 90 fL (79-100) Mean Corpuscular Hemoglobin 31 pg (25-35) Mean Corpuscular Hemoglobin Concent 35 g/dL (31-37) Red Cell Distribution Width 12.3 % (11.5-14.5) Platelet Count 163 x10^3/uL (140-400) Neutrophils (%) (Auto) 55 % (31-73) Lymphocytes (%) (Auto) 32 % (24-48) Monocytes (%) (Auto) 9 % (0-9) Eosinophils (%) (Auto) 3 % (0-3) Basophils (%) (Auto) 1 % (0-3) Neutrophils # (Auto) 4.9 x10^3uL (1.8-7.7) Lymphocytes # (Auto) 2.9 x10^3/uL (1.0-4.8) Monocytes # (Auto) 0.8 x10^3/uL (0.0-1.1) Eosinophils # (Auto) 0.2 x10^3/uL (0.0-0.7) Basophils # (Auto) 0.1 x10^3/uL (0.0-0.2) Prothrombin Time 9.4 SEC (9.4-11.4) Prothrombin Time INR 0.9 (0.9-1.1) PTT 23 SEC (23-33) D-Dimer (Nubia) 0.79 mg/L (0.00-0.50) H Sodium Level 134 mmol/L (136-145) L Potassium Level 4.3 mmol/L (3.5-5.1) Chloride Level 100 mmol/L (98-107) Carbon Dioxide Level 28 mmol/L (21-32) Anion Gap 6 (6-14) Blood Urea Nitrogen 16 mg/dL (8-26) Creatinine 1.0 mg/dL (0.7-1.3) Estimated GFR (Cockcroft-Gault) 80.8 Glucose Level 181 mg/dL (70-99) H Calcium Level 9.2 mg/dL (8.5-10.1) Magnesium Level 1.8 mg/dL (1.8-2.4) Total Bilirubin 0.2 mg/dL (0.2-1.0) Direct Bilirubin 0.1 mg/dL (0.0-0.2) Aspartate Amino Transferase (AST) 36 U/L (15-37) Alanine Aminotransferase (ALT) 45 U/L (16-63) Alkaline Phosphatase 81 U/L (46-116) Creatine Kinase 101 U/L (39-308) Creatine Kinase MB (Mass) 2.0 ng/mL (0.0-3.6) Creatine Kinase MB Relative Index 2.0 % (0-4) Troponin I Quantitative < 0.017 ng/mL (0-0.055) NZ-Ess-D-Type Natriuretic Peptide 30 pg/mL (0-124) Total Protein 7.2 g/dL (6.4-8.2) Albumin 3.3 g/dL (3.4-5.0) L Lipase 65 U/L (73-393) L Urine Collection Type Unknown Urine Color Jeana Urine Clarity Hazy Urine pH 5.0 Urine Specific [place] 1.025 Urine Protein Neg (NEG-TRACE) Urine Glucose (UA) Neg mg/dL (NEG) Urine Ketones (Stick) Trace mg/dL (NEG) Urine Blood Neg (NEG) Urine Nitrite Neg (NEG) Urine Bilirubin Neg (NEG) Urine Urobilinogen Dipstick 0.2 mg/dL (0.2 mg/dL) Urine Leukocyte Esterase Neg (NEG) Urine RBC 1-2 /HPF (0-2) Urine WBC 0 /HPF (0-4) Urine Squamous Epithelial Cells Few /LPF Urine Bacteria 0 /HPF (0-FEW) Urine Opiates Screen Pos (NEG) Urine Methadone Screen Neg (NEG) Urine Barbiturates Neg (NEG) Urine Phencyclidine Screen Neg (NEG) Urine Amphetamine/Methamphetamine Neg (NEG) Urine Benzodiazepines Screen Pos (NEG) Urine Cocaine Screen Neg (NEG) Urine Cannabinoids Screen Pos (NEG) Urine Ethyl Alcohol Neg (NEG) EKG EKG Interpretation EKG shows sinus rhythm with right axis deviation. Nonspecific intraventricular block and contour changes in anterior lateral leads. No findings acute STEMI of contralateral changes. Does have low voltage in many of the leads. There maybe some J-point elevation in V1 2 and 3[] Radiology/Procedures Radiology/Procedures My interpretation of chest x-ray shows borderline cardiac enlargement. Does have pacer on left. Some basilar atelectasis. No obvious pneumothorax or large infiltrate.[] I interpretation CT head shows no shift, mass, edema, bleed, or fracture. See formal report when available. Course & Med Decision Making Course & Med Decision Making Pertinent Labs and Imaging studies reviewed. (See chart for details) Heart score of 4-6. Discussed presentation, testing and tx. plan with Dr. Bailon. Arrangements made for patient admission to Dr. Bailon, with cardiology consult, and neurology consult. However when his time to transfer patient to telemetry, patient refused to continue the admission process. Pt. stated he felt better and was going to go home. Begged patient to reconsider his decision since we had not even completed a repeat troponin levels. Patient insistent on discharge in spite of his past history and risks. Significant other also could not convince him to stay. Encourage pt. to stop smoking. Pt to Call his primary and diversional therapist in morning or sooner. Return at any time to complete his work up. Recommend he also get interrogation of his pacer because this may explain his short episodes of near syncope. Pt. refused to stay for even a repeat EKG or Trop. before signing out AMA. [] Final Impression Final Impression 1. Chest Pain 2. Syncope 3. DM 181 4. Elevated Lipids 5. Elevated D-dimer 0.79 6. Hx. CADz- NC x 5, Stents x 10, Pacer- V-Tach[] 7. Tobacco and Marijuana Use 8. Neck Adenopathy Dragon Disclaimer Dragon Disclaimer This electronic medical record was generated, in whole or in part, using a voice recognition dictation system. Discharge Summary Visit Information Final Diagnosis Problems Medical Problems: (1) Chest pain Status: Acute (2) Left against medical advice Status: Acute Brief Hospital Course Allergies Allergies Coded Allergies Type Severity Reaction Last Updated Verified No Known Drug Allergies 09/09/15 No Vital Signs Vital Signs Date Time Temp Pulse Resp B/P (MAP) Pulse Ox O2 Delivery O2 Flow Rate FiO2 06/06/18 23:08 75 16 134/82 (99) 98 Room Air 06/06/18 20:30 98.0 Lab Results Laboratory Tests Test 06/06/18 20:39 06/06/18 22:00 White Blood Count 9.0 x10^3/uL (4.0-11.0) Red Blood Count 4.50 x10^6/uL (4.30-5.70) Hemoglobin 14.1 g/dL (13.0-17.5) Hematocrit 40.4 % (39.0-53.0) Mean Corpuscular Volume 90 fL (79-100) Mean Corpuscular Hemoglobin 31 pg (25-35) Mean Corpuscular Hemoglobin Concent 35 g/dL (31-37) Red Cell Distribution Width 12.3 % (11.5-14.5) Platelet Count 163 x10^3/uL (140-400) Neutrophils (%) (Auto) 55 % (31-73) Lymphocytes (%) (Auto) 32 % (24-48) Monocytes (%) (Auto) 9 % (0-9) Eosinophils (%) (Auto) 3 % (0-3) Basophils (%) (Auto) 1 % (0-3) Neutrophils # (Auto) 4.9 x10^3uL (1.8-7.7) Lymphocytes # (Auto) 2.9 x10^3/uL (1.0-4.8) Monocytes # (Auto) 0.8 x10^3/uL (0.0-1.1) Eosinophils # (Auto) 0.2 x10^3/uL (0.0-0.7) Basophils # (Auto) 0.1 x10^3/uL (0.0-0.2) Prothrombin Time 9.4 SEC (9.4-11.4) Prothromb Time International Ratio 0.9 (0.9-1.1) Activated Partial Thromboplast Time 23 SEC (23-33) D-Dimer (Nubia) 0.79 mg/L (0.00-0.50) Sodium Level 134 mmol/L (136-145) Potassium Level 4.3 mmol/L (3.5-5.1) Chloride Level 100 mmol/L (98-107) Carbon Dioxide Level 28 mmol/L (21-32) Anion Gap 6 (6-14) Blood Urea Nitrogen 16 mg/dL (8-26) Creatinine 1.0 mg/dL (0.7-1.3) Estimated GFR (Cockcroft-Gault) 80.8 Glucose Level 181 mg/dL (70-99) Calcium Level 9.2 mg/dL (8.5-10.1) Magnesium Level 1.8 mg/dL (1.8-2.4) Total Bilirubin 0.2 mg/dL (0.2-1.0) Direct Bilirubin 0.1 mg/dL (0.0-0.2) Aspartate Amino Transf (AST/SGOT) 36 U/L (15-37) Alanine Aminotransferase (ALT/SGPT) 45 U/L (16-63) Alkaline Phosphatase 81 U/L (46-116) Creatine Kinase 101 U/L (39-308) Creatine Kinase MB (Mass) 2.0 ng/mL (0.0-3.6) Creatine Kinase MB Relative Index 2.0 % (0-4) Troponin I Quantitative < 0.017 ng/mL (0-0.055) PX-Uhg-N-Type Natriuretic Peptide 30 pg/mL (0-124) Total Protein 7.2 g/dL (6.4-8.2) Albumin 3.3 g/dL (3.4-5.0) Lipase 65 U/L (73-393) Urine Collection Type Unknown Urine Color Jeana Urine Clarity Hazy Urine pH 5.0 Urine Specific [place] 1.025 Urine Protein Neg (NEG-TRACE) Urine Glucose (UA) Neg mg/dL (NEG) Urine Ketones (Stick) Trace mg/dL (NEG) Urine Blood Neg (NEG) Urine Nitrite Neg (NEG) Urine Bilirubin Neg (NEG) Urine Urobilinogen Dipstick 0.2 mg/dL (0.2 mg/dL) Urine Leukocyte Esterase Neg (NEG) Urine RBC 1-2 /HPF (0-2) Urine WBC 0 /HPF (0-4) Urine Squamous Epithelial Cells Few /LPF Urine Bacteria 0 /HPF (0-FEW) Urine Opiates Screen Pos (NEG) Urine Methadone Screen Neg (NEG) Urine Barbiturates Neg (NEG) Urine Phencyclidine Screen Neg (NEG) Urine Amphetamine/Methamphetamine Neg (NEG) Urine Benzodiazepines Screen Pos (NEG) Urine Cocaine Screen Neg (NEG) Urine Cannabinoids Screen Pos (NEG) Urine Ethyl Alcohol Neg (NEG) Brief Hospital Course Mr. Quiles is a 43 old male who presented with chest discomfort, dizzy and near syncope. Admitted , but pt. Left AMA before transport [facility]. Discharge Information Condition at Discharge: Improved Disposition/Orders: Instructions/Orders Dischare Medications Current Medications Aspirin (Children'S Aspirin) 324 mg 1X ONCE PO Last administered on 06/06/18at 20:47; Admin Dose 324 MG; Start 06/06/18 at 21:00; Stop 06/06/18 at 21:01; Status DC Lactated Ringer's 1,000 ml @ 100 mls/hr Q10H IV Last administered on at 20:47; Admin Dose 100 MLS/HR; Start 06/06/18 at 20:35; Stop 06/07/18 at 00: 39; Status DC Aspirin (Children'S Aspirin) 81 mg STK-MED ONCE .ROUTE ; Start 06/06/18 at 20:45 ; Stop 06/06/18 at 20:46; Status DC Nitroglycerin (Nitro-Bid Oint) 1 inch 1X ONCE TP Last administered on at 20:58; Admin Dose 1 INCH; Start 06/06/18 at 21:30; Stop 06/06/18 at 21:31; Status DC Nitroglycerin (Nitro-Bid Oint) 1 inch STK-MED ONCE .ROUTE ; Start 06/06/18 at 20 :56; Stop 06/06/18 at 20:57; Status DC Enoxaparin Sodium (Lovenox 100mg Syringe) 60 mg 1X ONCE SQ ; Start 06/06/18 at 23:00; Stop 06/06/18 at 23:01; Status DC Ondansetron HCl (Zofran) 4 mg PRN Q4HRS PRN IV NAUSEA/VOMITING; Start 06/06/18 at 23:00; Stop 06/07/18 at 00:39; Status DC Morphine Sulfate (Morphine 4mg Syringe) 2 mg PRN Q2HR PRN IV PAIN; Start at 23:00; Stop 06/07/18 at 00:39; Status DC Albuterol/ Ipratropium (Duoneb) 3 ml RTQID NEB ; Start 06/07/18 at 08:00; Stop 06/07/18 at 08:00; Status DC Nitroglycerin (Nitro-Bid Oint) 1 inch TID TP ; Start 06/07/18 at 09:00; Stop at 09:00; Status DC Enoxaparin Sodium (Lovenox 100mg Syringe) 90 mg BID SQ ; Start 06/07/18 at 09:00 ; Stop 06/07/18 at 09:00; Status DC Clopidogrel Bisulfate (Plavix) 75 mg DAILY PO ; Start 06/07/18 at 09:00; Stop at 09:00; Status DC Active Scripts Active [place] 5-325 Tablet (Hydrocodone Bit/Acetaminophen) 1 Each Tablet 1 Tab PO PRN Q6HRS PRN Zofran Odt (Ondansetron) 4 Mg Tab.rapdis 4 Mg PO Q6HRS Reported Bennett 3-6-9 1,200 mg Softgel (Fish Oil/Borage/Flax/Om3,6,9#1) 1,200 Mg Capsule 1 ,200 Mg PO DAILY Vitamin D (Cholecalciferol (Vitamin D3)) 1,000 Unit Capsule 1 Cap PO DAILY Coq-10 (Ubidecarenone) 30 Mg Capsule 30 Mg PO DAILY Lisinopril 10 Mg Tablet 1 Tab PO DAILY Hydrocodone-Apap 7.5-325 (Hydrocodone Bit/Acetaminophen) 1 Each Tablet 1 Tab PO PRN Q6HRS PRN Xanax (Alprazolam) 0.5 Mg Tablet 0.5 Mg PO PRN Q6HRS PRN Atorvastatin Calcium 80 Mg Tablet 1 Tab PO DAILY Effient (Prasugrel Hcl) 10 Mg Tablet 1 Tab PO DAILY Carvedilol 25 Mg Tablet 1 Tab PO BID Eliquis (Apixaban) 5 Mg Tablet 10 Mg PO BID Aspirin 325 Mg Tablet 1 Tab PO DAILY Dragon Disclaimer This chart was dictated in whole or in part using Voice Recognition software in a busy, high-work load, and often noisy Emergency Department environment. It may contain unintended and wholly unrecognized errors or omissions. KATHERIN HUGHES MD Jun 06, 2018 20:35
[2018-06-06] MEDS ORDERED: ASPIRIN 81 MG TAB.CHEW ONE (20:45)
[2018-06-06] MEDS ORDERED: NITROGLYCERIN OINT 1 GM PACKET. ONE (20:56)
[2018-06-06 20:57] LABS: BASO # 0.1 x10^3/uL (0.0-0.2); BASO % 1 % (0-3); EOS # 0.2 x10^3/uL (0.0-0.7); EOS % 3 % (0-3); HEMATOCRIT 40.4 % (39.0-53.0); HEMOGLOBIN 14.1 g/dL (13.0-17.5); LYMPH # 2.9 x10^3/uL (1.0-4.8); LYMPH % 32 % (24-48); MEAN CORPUSCULAR HEMOGLOBIN 31 pg (25-35); MEAN CORPUSCULAR HGB CONC 35 g/dL (31-37); MEAN CORPUSCULAR VOLUME 90 fL (79-100); MONO # 0.8 x10^3/uL (0.0-1.1); MONO % 9 % (0-9); NEUT # 4.9 x10^3uL (1.8-7.7); NEUT % 55 % (31-73); PLATELET COUNT 163 x10^3/uL (140-400); RED CELL DISTRIBUTION WIDTH 12.3 % (11.5-14.5)
[2018-06-06] MEDS ORDERED: ASPIRIN 81 MG TAB.CHEW PO ONE (21:00)
--- NOTE | 2018-06-06 21:21 | RAD ---
EXAM: CT Head without IV contrast CLINICAL HISTORY: Mental status change with chest pain and dizzy complaints COMPARISON: None. TECHNIQUE: Routine CT of the head without contrast. Soft tissues and bone windows were reviewed. PQRS compliance statement - One or more of the following individualized dose reduction techniques were utilized for this study: 1. Automated exposure control 2. Adjustment of the mA and/or kV according to patient size 3. Use of iterative reconstruction technique FINDINGS: There is no evidence of hemorrhage, mass or extra-axial fluid collection. Shannon-white differentiation is maintained with no evidence of edema. There is no mass effect or shift of the intracranial structures. The ventricles, basilar cisterns and cortical sulci are normal in size and configuration for the patients stated age. The cerebellum and brainstem are unremarkable. The calvarium demonstrates no evidence of fracture or focal lesion. There is normal aeration of the visualized paranasal sinuses and mastoid air cells. The visualized portions of the orbits are normal. IMPRESSION: 1. No evidence for acute intracranial process. Specifically no evidence for acute intracranial hemorrhage. Findings no evidence for acute intracranial hemorrhage were discussed with Dr. Candelario at 9:18 PM, 06/06/2018 Electronically signed by: Kosta Polo MD (06/06/2018 9:18 PM) [facility]
[2018-06-06] MEDS ORDERED: NITROGLYCERIN OINT 1 GM PACKET. TP ONE (21:30)
[2018-06-06 22:17] LABS: ALBUMIN 3.3 g/dL (3.4-5.0); CALCIUM 9.2 mg/dL (8.5-10.1); DIRECT BILIRUBIN 0.1 mg/dL (0.0-0.2); GFR 80.8; MAGNESIUM 1.8 mg/dL (1.8-2.4); POTASSIUM 4.3 mmol/L (3.5-5.1); TOTAL BILIRUBIN 0.2 mg/dL (0.2-1.0); TOTAL PROTEIN 7.2 g/dL (6.4-8.2)
[2018-06-06 22:34] LABS: BARBITURATES NEG (NEG); BENZODIAZEPINES POS (NEG); CANNABINOIDS POS (NEG); COCAINE NEG (NEG); METHADONE NEG (NEG); OPIATES POS (NEG); PHENCYCLIDINE NEG (NEG)
[2018-06-06 22:35] LABS: AMPHETAMINE/METHAMPHETAMINE NEG (NEG)
[2018-06-06 22:43] LABS: BACTERIA,URINE 0 /HPF (0-FEW); BILIRUBIN,URINE NEG (NEG); CLARITY,URINE HAZY; COLOR,URINE AMBER; GLUCOSE,URINE NEG (NEG); NITRITE,URINE NEG (NEG); SQUAMOUS EPITHELIAL CELL,UR FEW /LPF; UROBILINOGEN,URINE 0.2 mg/dL (0.2 mg/dL); WBC,URINE 0 /HPF (0-4)
[2018-06-06] MEDS ORDERED: ENOXAPARIN ** NOTE DOSE ** SYRINGE SQ ONE (23:00)
[2018-06-06] MEDS ORDERED: MORPHINE SULFATE 4 MG/ML DISP.SYRIN. IV PRN (23:00)
[2018-06-06] MEDS ORDERED: ONDANSETRON PF 4 MG/2 ML VIAL. IV PRN (23:00)
[2018-06-06 23:08] VITALS: BP 134/82
--- NOTE | 2018-06-06 23:39 | RAD ---
Bilateral carotid arterial duplex study 06/06/2018 Clinical History: Syncope and hypertension. Dizziness Technique: Using a combination of real-time ultrasound imaging and color-flow and pulse Doppler imaging techniques, duplex evaluation of the carotid and vertebral arterial structures within the neck was performed. Multiple images were obtained. Velocity measurements estimating the degree of stenosis are based on NASCET criteria. Findings: Minimal atheromatous plaque formation is seen involving both carotid bifurcations. The peak systolic velocities are not significantly elevated. No hemodynamically significant stenosis is seen. The vertebral arteries demonstrate normal antegrade flow. Slightly prominent reactive lymph nodes are seen within the neck which measure 1 cm into 3.3 cm in size. Impression: Minimal atheromatous plaque formation is seen involving both carotid bifurcations. No hemodynamically significant stenosis is seen. Electronically signed by: Kunal Lance MD (06/06/2018 11:36 PM) [facility]
--- NOTE | 2018-06-07 00:35 | RAD ---
EXAM: AP View of the chest DATE: 06/06/2018 8:35 PM INDICATION: Chest pain, dizziness, sweaty tonight COMPARISON: 10/19/2017, 12/15/2016 FINDINGS: The heart is not enlarged. Cardiac generator pack obscures a portion of the left chest with leads in stable position. Mediastinal and hilar contours are normal. No focal parenchymal airspace opacity. No pleural effusion or pneumothorax. IMPRESSION: 1. No radiographic evidence for acute cardiopulmonary process. Electronically signed by: Kosta Polo MD (06/07/2018 12:32 AM) [facility]
[2018-06-07] MEDS ORDERED: IPRATRPIUM/ALBUTEROL 0.5/2.5MG 3 ML NEBU. NEB SCH (08:00)
[2018-06-07] MEDS ORDERED: ENOXAPARIN ** NOTE DOSE ** SYRINGE SQ SCH (09:00)
[2018-06-07] MEDS ORDERED: NITROGLYCERIN OINT 1 GM PACKET. TP SCH (09:00)
[2018-06-07] MEDS ORDERED: CLOPIDOGREL BISULFATE 75 MG TABLET PO SCH (09:00)
--- NOTE | 2018-06-07 19:10 | EKG ---
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
== END 2018-06-06 23:12 | disposition left against medical advice (07) ==
LOC: ER 21:41
DX: R07.89 Other chest pain (principal); R55 Syncope and collapse; E11.9 Type 2 diabetes mellitus without complications; E78.5 Hyperlipidemia, unspecified; R79.1 Abnormal coagulation profile; R59.0 Localized enlarged lymph nodes; F41.9 Anxiety disorder, unspecified; I25.810 Atherosclerosis of coronary artery bypass graft(s) without angina pectoris; I11.0 Hypertensive heart disease with heart failure; I50.9 Heart failure, unspecified; I25.2 Old myocardial infarction; E78.00 Pure hypercholesterolemia, unspecified; F17.210 Nicotine dependence, cigarettes, uncomplicated; F12.10 Cannabis abuse, uncomplicated; Z98.61 Coronary angioplasty status; Z95.0 Presence of cardiac pacemaker
CPT/HCPCS: 36415; 70450; 71045; 80048; 80061; 80076; 80307; 81001; 82553; 83690; 83735; 83880; 84443; 84484; 85025; 85379; 85610; 85730; 93005; 93880; 96360; 96361; 99284; J7120

== ENCOUNTER 2018-09-07 14:04 | Emergency (ER) | payer MEDICARE ==
[~2018-09-07] VITALS: Ht 172.7 cm; Wt 92.5 kg
[2018-09-07 14:17] VITALS: BP 178/115
[2018-09-07] MEDS ORDERED: AMOX1TAB61 PO (15:00)
--- NOTE | 2018-09-07 15:00 | PHYS DOC ---
Past History Past Medical History: Anxiety, CAD, CHF, DVT, High Cholesterol, Hypertension, [place] Past Surgical History: Angioplasty, Coronary Bypass Surgery, Pacemaker, Other Smoking: Cigarettes Alcohol Use: Rarely Drug Use: Marijuana Adult General Chief Complaint Chief Complaint: DENTAL PROBLEM HPI HPI 43-year-old male presents with abdominal pain. The patient had tooth #11 break off on Sunday. He called 6 dental offices and the earliest he could get in was next Sunday. The patient is already on chronic pain medication. He feels like there is swelling and inflammation around the tooth at this time. He is concern for infection. The dentist office recommended that he come to the emergency room and be placed on antibiotics in preparation for his appointment. The patient has been taking his pain medications, but it is not helping with the pain. He wants to get the anabolic started so he can get the inflammation to decrease. He denies fever or chills. He has no other complaints Review of Systems Review of Systems Constitutional: Denies fever or chills [] Eyes: Denies change in visual acuity, redness, or eye pain [] HENT: Dental pain[] Respiratory: Denies cough or shortness of breath [] Cardiovascular: No additional information not addressed in HPI [] GI: Denies abdominal pain, nausea, vomiting, bloody stools or diarrhea [] : Denies dysuria or hematuria [] Musculoskeletal: Denies back pain or joint pain [] Integument: Denies rash or skin lesions [] Neurologic: Denies headache, focal weakness or sensory changes [] Endocrine: Denies polyuria or polydipsia [] All other systems were reviewed and found to be within normal limits, except as documented in this note. Current Medications Current Medications Current Medications Medications (Trade) Dose Ordered Sig/Tod Start Time Stop Time Status Last Admin Dose Admin Ceftriaxone Sodium (Rocephin Im) 1 gm 1X ONCE 09/07/18 15:00 09/07/18 15:01 UNV Allergies Allergies Allergies Coded Allergies Type Severity Reaction Last Updated Verified No Known Drug Allergies 09/09/15 No Physical Exam Physical Exam Constitutional: Well developed, well nourished, mild acute distress, non-toxic appearance. [] HENT: Normocephalic, atraumatic, bilateral external ears normal, oropharynx moist, broken teeth numbers 11 and 7, nose normal. [] Eyes: PERRLA, EOMI, conjunctiva normal, no discharge. [] Neck: Normal range of motion, no tenderness, supple, no stridor. [] Cardiovascular:Heart rate regular rhythm, no murmur [] Lungs & Thorax: Bilateral breath sounds clear to auscultation [] Abdomen: Bowel sounds normal, soft, no tenderness, no masses, no pulsatile masses. [] Skin: Warm, dry, no erythema, no rash. [] Back: No tenderness, no CVA tenderness. [] Extremities: No tenderness, no cyanosis, no clubbing, ROM intact, no edema. [] Neurologic: Alert and oriented X 3, normal motor function, normal sensory function, no focal deficits noted. [] Psychologic: Affect normal, judgement normal, mood normal. [] Current Patient Data Vital Signs Vital Signs Date Time Temp Pulse Resp B/P (MAP) Pulse Ox O2 Delivery O2 Flow Rate FiO2 09/07/18 14:17 97.9 86 18 98 Room Air EKG EKG [] Radiology/Procedures Radiology/Procedures [] Course & Med Decision Making Course & Med Decision Making Pertinent Labs and Imaging studies reviewed. (See chart for details) Patient's surrounding gums are erythematous. I do not palpate a drainable pus pocket. I will place him on antibiotics. We will give him Rocephin 1 g IM followed by Augmentin for 7 days. He will continue to take his only prescribed pain medication. He'll also use topical medication. He is stable for discharge at this time. [] Dragon Disclaimer Dragon Disclaimer This electronic medical record was generated, in whole or in part, using a voice recognition dictation system. Departure Departure: Impression: Primary Impression: Dental infection Additional Impression: Fractured tooth Disposition: 01 HOME, SELF-CARE Condition: STABLE Referrals: ELIZABETH JACOBSON MD (PCP) Patient Instructions: Dental Pain, [id number], Tooth Fracture Scripts Amoxicillin/Potassium Clav (AUGMENTIN 875-125 TABLET) 1 Each Tablet 1 TAB PO BID for dental infection, #14 TAB Prov: LETI COYLE DO 09/07/18 Problem Qualifiers Additional Impression: Fractured tooth Encounter type: initial encounter Fracture type: closed Qualified Codes: S02.5XXA - Fracture of tooth (traumatic), initial encounter for closed fracture LETI COYLE DO Sep 07, 2018 15:00
[2018-09-07] MEDS ORDERED: LIDOCAINE 2% VISCOUS 15 ML SOLUTION. SWSW ONE (15:20)
[2018-09-07] MEDS ORDERED: cefTRIAXone IM 1 GM VIAL IM ONE (15:20)
== END 2018-09-07 15:14 | disposition home or self-care (01) ==
LOC: ER 14:04
DX: S02.5XXA Fracture of tooth (traumatic), initial encounter for closed fracture (principal); K04.7 Periapical abscess without sinus; F41.9 Anxiety disorder, unspecified; I11.0 Hypertensive heart disease with heart failure; I50.9 Heart failure, unspecified; E78.00 Pure hypercholesterolemia, unspecified; I25.2 Old myocardial infarction; I25.810 Atherosclerosis of coronary artery bypass graft(s) without angina pectoris; F17.210 Nicotine dependence, cigarettes, uncomplicated; Z86.718 Personal history of other venous thrombosis and embolism; Z98.61 Coronary angioplasty status; Z95.0 Presence of cardiac pacemaker; X58.XXXA Exposure to other specified factors, initial encounter; Y93.89 Activity, other specified; Y92.89 Other specified places as the place of occurrence of the external cause; Y99.8 Other external cause status
CPT/HCPCS: 96372; 99283; J0696

== ENCOUNTER 2018-11-16 13:56 | Emergency (ER) | payer MEDICARE ==
[~2018-11-16 13:56] MED LIST changes: +AMOX1TAB61 PO
[2018-11-16 14:10] VITALS: BP 122/89
[2018-11-16 14:20] LABS: BASO # 0.1 x10^3/uL (0.0-0.2); BASO % 1 % (0-3); EOS # 0.2 x10^3/uL (0.0-0.7); EOS % 2 % (0-3); HEMOGLOBIN 15.1 g/dL (13.0-17.5); LYMPH % 27 % (24-48); MEAN CORPUSCULAR HEMOGLOBIN 31 pg (25-35); MEAN CORPUSCULAR HGB CONC 34 g/dL (31-37); MEAN CORPUSCULAR VOLUME 91 fL (79-100); MONO # 0.8 x10^3/uL (0.0-1.1); MONO % 8 % (0-9); NEUT # 6.9 x10^3uL (1.8-7.7); NEUT % 62 % (31-73); PLATELET COUNT 160 x10^3/uL (140-400); RED BLOOD COUNT 4.95 x10^6/uL (4.30-5.70); RED CELL DISTRIBUTION WIDTH 12.8 % (11.5-14.5); WHITE BLOOD COUNT 11.1 x10^3/uL (4.0-11.0)
[2018-11-16 14:28] LABS: MONONUCLEOSIS PATIENT NEGATIVE (NEGATIVE)
--- NOTE | 2018-11-16 14:39 | RAD ---
AP portable chest radiograph 11/16/2018 Clinical History: Chest pain. An AP erect portable digital radiograph of the chest was obtained. Comparison study is dated 05/29/2018. A pacemaker is unchanged in position. The cardiac silhouette is mildly enlarged. The thoracic aorta is mildly tortuous. No acute pulmonary infiltrate is seen. No pleural effusion or pneumothorax is noted. The osseous structures are unchanged. Impression: No acute abnormality is seen. Electronically signed by: Kunal Lance MD (11/16/2018 2:36 PM) [facility]
[2018-11-16 14:41] LABS: ALBUMIN 3.3 g/dL (3.4-5.0); ALBUMIN/GLOBULIN RATIO 0.8 (1.0-1.7); CALCIUM 8.9 mg/dL (8.5-10.1); CREATININE 1.1 mg/dL (0.7-1.3); GFR 72.4; POTASSIUM 4.4 mmol/L (3.5-5.1); TOTAL BILIRUBIN 0.5 mg/dL (0.2-1.0); TOTAL PROTEIN 7.7 g/dL (6.4-8.2)
--- NOTE | 2018-11-16 15:14 | ED.ADGEN ---
Past History Past Medical History: CHF, Diabetes, DVT, High Cholesterol, Hypertension, PR Past Surgical History: Coronary Bypass Surgery, Pacemaker, Other Additional Past Surgical Histo: 9 stents placed; ICD pacemaker Smoking: Cigarettes Alcohol Use: None Drug Use: None Adult General Chief Complaint Chief Complaint Fatigue, elevated blood sugar HPI HPI Patient is a 43-year-old male with history is CAD, CHF, PR,hypertension, dyslipidemia and chronic tobaccoism who presents with increased somnolence throughout the day. Patient also states that his blood sugar was in the mid 300 range. Denies headache, chest pain palpitations, shortness of breath. No fever chills, nausea vomiting or sweats. No abdominal pain. No urinary frequency urgency or diarrhea. Patient is compliant with metformin and glipizide. Denies dietary noncompliance leading up to elevated blood sugar. Blood sugar ED arrival is in the 180s. Patient appears somnolent but not in any distress. Patient reports fatigue throughout the day for the past several weeks. States he spoke with his doctor who recommended a sleep study.[] Review of Systems Review of Systems Review symptoms as per history of present illness. All other review symptoms are negative. All other systems were reviewed and found to be within normal limits, except as documented in this note. Allergies Allergies Allergies Coded Allergies Type Severity Reaction Last Updated Verified spironolactone Allergy Mild 11/16/18 Yes Physical Exam Physical Exam Constitutional: somnolent, well nourished, no acute distress, non-toxic appearance. [] HENT: Normocephalic, atraumatic, bilateral external ears normal, oropharynx moist, no oral exudates, nose normal. [] Eyes: PERRLA, EOMI, conjunctiva normal, no discharge. [] Neck: Normal range of motion, no tenderness, supple, no stridor. [] Cardiovascular:Heart rate regular rhythm, no murmur [] Lungs & Thorax: Bilateral breath sounds clear to auscultation [] Abdomen: Bowel sounds normal, soft, obesity limiting exam... [] Skin: Warm, dry, no erythema, no rash. [] Back: No tenderness. [] Extremities: No tenderness, no edema. [] Neurologic: Alert and oriented X 3, normal motor function, normal sensory function, no focal deficits noted. [] Psychologic: Affect normal, judgement normal, mood normal. [] Current Patient Data Vital Signs Vital Signs Date Time Temp Pulse Resp B/P (MAP) Pulse Ox O2 Delivery O2 Flow Rate FiO2 11/16/18 14:10 91 18 92 Room Air Lab Results Laboratory Tests Test 11/16/18 14:00 11/16/18 14:19 White Blood Count 11.1 x10^3/uL (4.0-11.0) H Red Blood Count 4.95 x10^6/uL (4.30-5.70) Hemoglobin 15.1 g/dL (13.0-17.5) Hematocrit 45.0 % (39.0-53.0) Mean Corpuscular Volume 91 fL (79-100) Mean Corpuscular Hemoglobin 31 pg (25-35) Mean Corpuscular Hemoglobin Concent 34 g/dL (31-37) Red Cell Distribution Width 12.8 % (11.5-14.5) Platelet Count 160 x10^3/uL (140-400) Neutrophils (%) (Auto) 62 % (31-73) Lymphocytes (%) (Auto) 27 % (24-48) Monocytes (%) (Auto) 8 % (0-9) Eosinophils (%) (Auto) 2 % (0-3) Basophils (%) (Auto) 1 % (0-3) Neutrophils # (Auto) 6.9 x10^3uL (1.8-7.7) Lymphocytes # (Auto) 3.0 x10^3/uL (1.0-4.8) Monocytes # (Auto) 0.8 x10^3/uL (0.0-1.1) Eosinophils # (Auto) 0.2 x10^3/uL (0.0-0.7) Basophils # (Auto) 0.1 x10^3/uL (0.0-0.2) Sodium Level 134 mmol/L (136-145) L Potassium Level 4.4 mmol/L (3.5-5.1) Chloride Level 96 mmol/L (98-107) L Carbon Dioxide Level 32 mmol/L (21-32) Anion Gap 6 (6-14) Blood Urea Nitrogen 12 mg/dL (8-26) Creatinine 1.1 mg/dL (0.7-1.3) Estimated GFR (Cockcroft-Gault) 72.4 BUN/Creatinine Ratio 11 (6-20) Glucose Level 193 mg/dL (70-99) H Calcium Level 8.9 mg/dL (8.5-10.1) Total Bilirubin 0.5 mg/dL (0.2-1.0) Aspartate Amino Transferase (AST) 39 U/L (15-37) H Alanine Aminotransferase (ALT) 49 U/L (16-63) Alkaline Phosphatase 95 U/L (46-116) Troponin I Quantitative < 0.017 ng/mL (0-0.055) TB-Oca-E-Type Natriuretic Peptide 36 pg/mL (0-124) Total Protein 7.7 g/dL (6.4-8.2) Albumin 3.3 g/dL (3.4-5.0) L Albumin/Globulin Ratio 0.8 (1.0-1.7) L Ethyl Alcohol Level < 10 mg/dL (0-10) Acetone Level Neg (NEG) Heterophil Agglutinins Negative (NEGATIVE) Ammonia 37 mcmol/L (11-34) H Radiology/Procedures Radiology/Procedures [] Course & Med Decision Making Course & Med Decision Making Pertinent Labs and Imaging studies reviewed. (See chart for details) [Labs reviewed. Suspect mental status changes are related to sleep apnea with narcolepsy. Recommendations are to follow-up with PCP for sleep study as soon as possible and for further evaluation.] Final Impression Final Impression [] Dragon Disclaimer Dragon Disclaimer This electronic medical record was generated, in whole or in part, using a voice recognition dictation system. LETI GOODWIN DO Nov 16, 2018 15:14
[2018-11-16 15:39] LABS: BACTERIA,URINE 0 /HPF (0-FEW); BILIRUBIN,URINE NEG (NEG); CLARITY,URINE HAZY; COLOR,URINE AMBER; GLUCOSE,URINE 500 mg/dL (NEG); NITRITE,URINE NEG (NEG); SQUAMOUS EPITHELIAL CELL,UR OCC /LPF; UROBILINOGEN,URINE 1 mg/dL (0.2 mg/dL); WBC,URINE 0 /HPF (0-4)
== END 2018-11-16 15:37 | disposition home or self-care (01) ==
LOC: ER 13:56
DX: R40.0 Somnolence (principal); R53.83 Other fatigue; I25.810 Atherosclerosis of coronary artery bypass graft(s) without angina pectoris; I11.0 Hypertensive heart disease with heart failure; I50.9 Heart failure, unspecified; E11.9 Type 2 diabetes mellitus without complications; E78.00 Pure hypercholesterolemia, unspecified; I25.2 Old myocardial infarction; E78.5 Hyperlipidemia, unspecified; F17.210 Nicotine dependence, cigarettes, uncomplicated; Z86.718 Personal history of other venous thrombosis and embolism; Z95.0 Presence of cardiac pacemaker; Z88.8 Allergy status to other drugs, medicaments and biological substances
CPT/HCPCS: 36415; 71045; 80053; 81001; 82010; 82140; 83880; 84443; 84484; 85025; 86308; 99285; G0480

== ENCOUNTER 2018-11-21 21:59 | Observation (INO) | payer MEDICARE ==
[~2018-11-21] VITALS: Ht 172.7 cm; Wt 120.2 kg
[2018-11-21] MEDS ORDERED: ONDANSETRON PF 4 MG/2 ML VIAL. ONE (22:10)
[2018-11-21] MEDS ORDERED: ONDANSETRON PF 4 MG/2 ML VIAL. IV ONE ×3 (22:15→23:30)
[2018-11-21] MEDS ORDERED: ASPIRIN 81 MG TAB.CHEW PO ONE (22:15)
--- NOTE | 2018-11-21 22:21 | PHYS DOC ---
Past History Past Medical History: Diabetes, SC Past Surgical History: Other Additional Past Surgical Histo: 9 stents placed; ICD pacemaker Smoking: Cigarettes Alcohol Use: None Drug Use: Marijuana (occasionally) Adult General Chief Complaint Chief Complaint: CHEST PAIN HPI HPI Patient is a 43-year-old male who presents to the emergency department for evaluation. He states he has had nausea for the past 2 days, along with epigastric discomfort. He states that over the past 24 hours he has also developed some discomfort in his left upper chest. He has had numerous episode of vomiting, which have precluded him from taking his normal medications, which she takes for his heart, blood pressure, and diabetes. He has not had any bloody emesis. He has not had any diarrhea. There are no alleviating or exacerbating factors to his symptoms. Review of Systems Review of Systems Constitutional: Denies fever or chills [] Eyes: Denies change in visual acuity, redness, or eye pain [] HENT: Denies nasal congestion or sore throat [] Respiratory: Denies cough. Reports shortness of breath [] Cardiovascular: No additional information not addressed in HPI [] GI: Denies bloody stools or diarrhea [] : Denies dysuria or hematuria [] Musculoskeletal: Denies back pain or joint pain [] Integument: Denies rash or skin lesions [] Neurologic: Denies headache, focal weakness or sensory changes [] Endocrine: Denies polyuria or polydipsia [] All other systems were reviewed and found to be within normal limits, except as documented in this note. Current Medications Current Medications Current Medications Medications (Trade) Dose Ordered Sig/Tod Start Time Stop Time Status Last Admin Dose Admin Aspirin (Children'S Aspirin) 324 mg 1X ONCE 11/21/18 22:15 11/21/18 22:16 UNV Lorazepam (Ativan Inj) 1 mg 1X ONCE 11/21/18 22:15 11/21/18 22:16 UNV Ondansetron HCl (Zofran) 4 mg 1X ONCE 11/21/18 22:15 11/21/18 22:16 UNV Sodium Chloride 1,000 ml @ 1,000 mls/hr Q1H 11/21/18 22:10 11/21/18 23:09 UNV Allergies Allergies Allergies Coded Allergies Type Severity Reaction Last Updated Verified spironolactone Allergy Mild 9/7/19 Yes Physical Exam Physical Exam PHYSICAL EXAM: CONSTITUTIONAL: Well developed, well nourished HEAD: normocephalic, atraumatic EENT: PERRL, EOMI. Conjunctivae normal color, sclerae non-icteric; moist mucous membranes. NECK: Supple, non-tender; no meningismus. LUNGS: Lungs CTA, the patient is hyperventilating.. Normal air movement. HEART: Regular rate and rhythm, no murmur CHEST: No deformity; non-tender ABDOMEN: The abdomen is soft, there is mild diffuse tenderness to palpation of the entire abdomen, most prominent in the epigastric area, without rebound or guarding, the lower abdomen is relatively soft and non-tender, no masses or bru its. The right lower quadrant itself is not particularly tender, Bailon sign is absent. EXTREM: Normal ROM; no deformity, no calf tenderness. Normal pulses palpable in all extremities. There is no pedal edema. SKIN: No rash; no diaphoresis NEURO: Alert; normal speech and cognition; CN's grossly intact; strength grossly intact without focal deficit. BACK: No CVA TTP. PSYCHIATRIC: Moderately anxious affect. EKG EKG Atrial sensed, ventricular paced rhythm, at a rate of 90 bpm, with secondary QRS widening, rightward axis, nonspecific ST/T changes are present. The EKG is not significantly changed compared to patient's prior EKG. Radiology/Procedures Radiology/Procedures [PROCEDURE: PORTABLE CHEST 1V Exam: Chest one view INDICATION: Chest pain TECHNIQUE: Frontal view of the chest Comparisons: 11/16/2018 FINDINGS: AICD with leads terminating the right atrium, ventricle and coronary sinus. Heart is mildly enlarged. Pulmonary vessels are within normal limits. The lung and pleural spaces are clear. IMPRESSION: Stable positioning of the AICD without acute pulmonary process.] PROCEDURE: CT ABD PELV W/ IV CONTRST ONLY CT scan of the abdomen and pelvis with contrast 11/21/2018 CLINICAL HISTORY: Abdominal pain. TECHNIQUE: After the intravenous administration of 75 cc of Omnipaque 300 only, contiguous, 5 mm axial sections were obtained to the abdomen and pelvis. One or more of the following individualized dose reduction techniques were utilized for this study: 1. Automated exposure control. 2. Adjustment of the mA and/or kV according to patient size. 3. Use of iterative reconstruction technique. FINDINGS: Comparison study is dated 12/15/2016. Images through the lung bases demonstrate borderline cardiomegaly. Minimal dependent subsegmental atelectasis is seen involving both lower lobes. The liver parenchyma has a decreased attenuation consistent with fatty infiltration. The spleen, pancreas, right adrenal gland and left kidney are within normal limits. A 2.2 cm low-attenuation nodule seen involving the left adrenal gland consistent with an adrenal adenoma. This is unchanged. A 1 to 2 mm nonobstructing calculus is seen involving lower pole of the right kidney. The gallbladder is contracted. The abdominal aorta tapers normally. Atherosclerotic calcification of the abdominal aorta is seen. No free fluid or free air is seen within the abdomen. There is no evidence of bowel obstruction. The appendix is well-visualized and is within normal limits. Images through the pelvis demonstrate the urinary bladder distended with urine. Calcifications are seen within the pelvis consistent with phleboliths. No free fluid is seen. Degenerative changes are seen involving the lower thoracic and throughout the lumbar spine along with both hips. IMPRESSION: No acute abnormality is seen. Course & Med Decision Making Course & Med Decision Making Pertinent Labs and Imaging studies reviewed. (See chart for details) []12:10 AM:The patient's condition remains stable. He is feeling somewhat bett er. His vomiting seems better control. I spoke with the hospitalist, who accepted the patient to the hospital for further evaluation and treatment. Dragon Disclaimer Dragon Disclaimer This electronic medical record was generated, in whole or in part, using a voice recognition dictation system. Departure Departure: Impression: Primary Impression: Chest pain Additional Impressions: Recurrent vomiting CAD (coronary artery disease) Upper abdominal pain Disposition: 09 ADMITTED INPATIENT Admitting Physician: Israel Bailon Condition: STABLE Referrals: ELIZABETH JACOBSON MD (PCP) Problem Qualifiers CONNOR NORMAN MD Nov 21, 2018 22:21
[2018-11-21 22:30] LABS: BASO # 0.1 x10^3/uL (0.0-0.2); BASO % 1 % (0-3); EOS % 0 % (0-3); HEMATOCRIT 46.3 % (39.0-53.0); HEMOGLOBIN 15.7 g/dL (13.0-17.5); LYMPH # 1.4 x10^3/uL (1.0-4.8); LYMPH % 12 % (24-48); MEAN CORPUSCULAR HEMOGLOBIN 31 pg (25-35); MEAN CORPUSCULAR HGB CONC 34 g/dL (31-37); MEAN CORPUSCULAR VOLUME 90 fL (79-100); MONO # 0.3 x10^3/uL (0.0-1.1); MONO % 3 % (0-9); NEUT # 9.7 x10^3uL (1.8-7.7); NEUT % 84 % (31-73); PLATELET COUNT 167 x10^3/uL (140-400); RED BLOOD COUNT 5.15 x10^6/uL (4.30-5.70); RED CELL DISTRIBUTION WIDTH 12.8 % (11.5-14.5); WHITE BLOOD COUNT 11.5 x10^3/uL (4.0-11.0)
[2018-11-21] MEDS ORDERED: IV NORMAL SALINE 1,000ML 1,000 ML IV SCH (22:30)
--- NOTE | 2018-11-21 22:42 | RAD ---
Exam: Chest one view INDICATION: Chest pain TECHNIQUE: Frontal view of the chest Comparisons: 11/16/2018 FINDINGS: AICD with leads terminating the right atrium, ventricle and coronary sinus. Heart is mildly enlarged. Pulmonary vessels are within normal limits. The lung and pleural spaces are clear. IMPRESSION: Stable positioning of the AICD without acute pulmonary process. Electronically signed by: Seth Garcia MD (11/21/2018 10:40 PM) [facility]
[2018-11-21 22:43] LABS: ALBUMIN/GLOBULIN RATIO 0.9 (1.0-1.7); CALCIUM 9.7 mg/dL (8.5-10.1); CREATININE 1.3 mg/dL (0.7-1.3); GFR 59.7; MAGNESIUM 2.2 mg/dL (1.8-2.4); POTASSIUM 4.5 mmol/L (3.5-5.1); TOTAL BILIRUBIN 0.6 mg/dL (0.2-1.0); TOTAL PROTEIN 8.4 g/dL (6.4-8.2)
[2018-11-21 22:52] LABS: BGAS PH 7.62 (7.35-7.46)
[2018-11-21] MEDS ORDERED: FAMOTIDINE 20 MG/2 ML VIAL ONE (23:22)
[2018-11-21] MEDS ORDERED: IOHEXOL 300 MG/ML 75 ML VIAL. IV ONE (23:30)
[2018-11-21] MEDS ORDERED: ACETAMINOPHEN 500 MG TABLET PO ONE (23:30)
[2018-11-21] MEDS ORDERED: CONTRAST GIVEN MC PRN (23:30)
[2018-11-21] MEDS ORDERED: FAMOTIDINE 20 MG/2 ML VIAL IVP ONE (23:45)
--- NOTE | 2018-11-22 00:04 | RAD ---
CT scan of the abdomen and pelvis with contrast 11/21/2018 CLINICAL HISTORY: Abdominal pain. TECHNIQUE: After the intravenous administration of 75 cc of Omnipaque 300 only, contiguous, 5 mm axial sections were obtained to the abdomen and pelvis. One or more of the following individualized dose reduction techniques were utilized for this study: 1. Automated exposure control. 2. Adjustment of the mA and/or kV according to patient size. 3. Use of iterative reconstruction technique. FINDINGS: Comparison study is dated 12/15/2016. Images through the lung bases demonstrate borderline cardiomegaly. Minimal dependent subsegmental atelectasis is seen involving both lower lobes. The liver parenchyma has a decreased attenuation consistent with fatty infiltration. The spleen, pancreas, right adrenal gland and left kidney are within normal limits. A 2.2 cm low-attenuation nodule seen involving the left adrenal gland consistent with an adrenal adenoma. This is unchanged. A 1 to 2 mm nonobstructing calculus is seen involving lower pole of the right kidney. The gallbladder is contracted. The abdominal aorta tapers normally. Atherosclerotic calcification of the abdominal aorta is seen. No free fluid or free air is seen within the abdomen. There is no evidence of bowel obstruction. The appendix is well-visualized and is within normal limits. Images through the pelvis demonstrate the urinary bladder distended with urine. Calcifications are seen within the pelvis consistent with phleboliths. No free fluid is seen. Degenerative changes are seen involving the lower thoracic and throughout the lumbar spine along with both hips. IMPRESSION: No acute abnormality is seen. Electronically signed by: Kunal Lance MD (11/22/2018 12:01 AM) [facility]
[2018-11-22] MEDS ORDERED: PROCHLORPERAZINE 10 MG/2 ML VIAL. IV ONE (00:15)
[2018-11-22] MEDS ORDERED: ONDANSETRON PF 4 MG/2 ML VIAL. IV PRN (00:15)
[2018-11-22] MEDS ORDERED: LIDO:MAALOX 1:1 20 ML SINGLE DOSE. PO ONE (00:30)
[2018-11-22] MEDS ORDERED: PANTOPRAZOLE IV 40 MG VIAL. IVP ONE (00:30)
[2018-11-22 01:40] VITALS: BP 181/119
[2018-11-22] MEDS ORDERED: METOCLOPRAMIDE HCL 10 MG/2 ML VIAL. IV PRN (02:00)
[2018-11-22] MEDS ORDERED: MORPHINE SULFATE 4 MG/ML DISP.SYRIN. IV PRN (02:00)
[2018-11-22] MEDS ORDERED: NICOTINE 14MG PATCH. TD SCH ×2 (02:30→09:00)
[2018-11-22] MEDS: METOCLOPRAMIDE HCL 10 MG/2 ML VIAL. IV SCH ×4 (02:31→16:44)
[2018-11-22 06:01] VITALS: BP 172/82
[2018-11-22] MEDS ORDERED: MORP15TA PO (08:09)
[2018-11-22] MEDS ORDERED: HYDR-2769 PO (08:09)
[2018-11-22] MEDS ORDERED: ALPR1TAB6 PO (08:09)
[2018-11-22] MEDS ORDERED: SACU1TAB7 PO (08:40)
[2018-11-22] MEDS ORDERED: NICO1PAT25 TP (08:40)
[2018-11-22] MEDS ORDERED: METF10007 PO (08:40)
[2018-11-22] MEDS ORDERED: GLIM2TAB2 PO (08:40)
[2018-11-22] MEDS ORDERED: HYDROcodone/APAP 10/325 1 TAB TABLET PO PRN (09:00)
[2018-11-22] MEDS ORDERED: SACUBITRIL/VALSARTAN 49/51MG TABLET. PO SCH (09:00)
[2018-11-22] MEDS ORDERED: DEXTROSE 50% 25 GM / 50ML DISP.SYRIN. IV PRN (09:00)
[2018-11-22] MEDS ORDERED: MAG HYDROX/AL HYDROX/SIMETH 30 ML ORAL.SUSP PO PRN (09:00)
[2018-11-22] MEDS ORDERED: PANTOPRAZOLE IV 40 MG VIAL. IVP SCH (09:00)
[2018-11-22] MEDS ORDERED: GLIMEPIRIDE 2 MG TABLET PO SCH (09:00)
[2018-11-22] MEDS ORDERED: ASPIRIN 325 MG TABLET PO SCH (09:00)
[2018-11-22] MEDS ORDERED: PRASUGREL 10 MG TABLET. PO SCH (09:00)
[2018-11-22] MEDS: ALPRAZolam 0.5 MG TABLET PO SCH ×2 (10:00→13:38)
[2018-11-22] MEDS: MORPHINE IR 15 MG TABLET PO SCH ×2 (10:00→13:38)
[2018-11-22 10:40] VITALS: BP 147/91
[2018-11-22] MEDS: SUCRALFATE 1 GM TABLET. PO SCH ×2 (11:30→16:30)
[2018-11-22] MEDS: INSULIN LISPRO 300 UNITS/3 ML VIAL. SQ SCH ×2 (11:31→16:40)
--- NOTE | 2018-11-22 12:43 | EKG ---
[address] [address] Test Date: 2018-11-21 Test Time: 22:06:33 Pat Name: TIMOTHY HOGAN Department: Room: Gender: M [employer]: : 1975 Requested By: CONNOR NORMAN Order Number: [id number] Reading MD: Measurements Intervals Thomson Rate: 90 P: 54 IA: 136 QRS: 118 QRSD: 128 T: 56 QT: 386 QTc: 477 Interpretive Statements SINUS RHYTHM ABNORMAL RIGHT AXIS DEVIATION LOW LIMB LEAD VOLTAGE NON SPECIFIC INTRAVENTRICULAR BLOCK QRS(T) CONTOUR ABNORMALITY CONSISTENT WITH SEPTAL INFARCT AGE UNDETERMINED CONSISTENT WITH HIGH LATERAL INFARCT PROBABLY OLD ABNORMAL ECG RI6.01 No previous ECG available for comparison
--- NOTE | 2018-11-22 15:05 | PDOC2 ---
CONSULT Date of Admission DATE: 11/22/18 TIME: 14:57 Reason for Consult: Chest pain Referring Physician: Dr. Bailon Chief Complaint Chest pain Source: Chart review, Patient Problem List Problems Medical Problems: (1) CAD (coronary artery disease) Status: Acute (2) Chest pain Status: Acute (3) Recurrent vomiting Status: Acute (4) Upper abdominal pain Status: Acute History of Present Illness 43-year-old male with history of coronary artery disease s/p multiple PCI/stents placement and ischemic cardiomyopathy s/p AICD implantation usually followed by MAC presented complaining of nausea, vomiting, retrosternal chest pain and diaphoresis. He stated that the pain was different than the pain he had prior to his angioplasties. He denied any orthopnea/PND, palpitations or syncope. He ap parently saw his primary offal separator approximately 2-3 weeks ago. Past Medical History Coronary artery disease s/p multiple PCI/stents placement, approximately 9 stents between 2014 in 2017, followed by [facility] cardiology Ischemic cardio myopathy s/p AICD implantation in 2014 Hypertension Hyperlipidemia Diabetes mellitus type 2 Past Surgical History AICD implantation Family History CAD, HTN Social History Patient smokes half pack cigarettes daily and admitted to marijuana use but denied any alcohol or other illicit drug use Current Medications Current Medications Ondansetron HCl (Zofran) 4 mg STK-MED ONCE .ROUTE ; Start 11/21/18 at 22:10; Stop 11/21/18 at 22:10; Status DC Ondansetron HCl (Zofran) 4 mg 1X ONCE IV Last administered on 11/21/18at 22:20; Start 11/21/18 at 22:15; Stop 11/21/18 at 22:24; Status DC Lorazepam (Ativan Inj) 1 mg 1X ONCE IV Last administered on 11/21/18at 22:25; Start 11/21/18 at 22:30; Stop 11/21/18 at 22:31; Status DC Aspirin (Children'S Aspirin) 324 mg 1X ONCE PO Last administered on 11/21/18at 22:23; Start 11/21/18 at 22:15; Stop 11/21/18 at 22:24; Status DC Sodium Chloride 1,000 ml @ 1,000 mls/hr Q1H IV Last administered on 11/21/18at 22:25; Start 11/21/18 at 22:30; Stop 11/21/18 at 23:29; Status DC Acetaminophen (Tylenol) 1,000 mg 1X ONCE PO Last administered on 11/21/18at 23:23; Start 11/21/18 at 23:30; Stop 11/21/18 at 23:31; Status DC Ondansetron HCl (Zofran) 4 mg 1X ONCE IV Last administered on 11/21/18at 23:39; Start 11/21/18 at 23:30; Stop 11/21/18 at 23:31; Status DC Iohexol (Omnipaque 300 Mg/ml) 75 ml 1X ONCE IV Last administered on 11/22/18at 01:21; Start 11/21/18 at 23:30; Stop 11/21/18 at 23:31; Status DC Info (Do NOT chart on this entry -- for MONITORING) 1 each PRN DAILY PRN MC SEE COMMENTS; Start 11/21/18 at 23:30; Stop 11/23/18 at 23:29 Famotidine (Pepcid Vial) 20 mg STK-MED ONCE .ROUTE ; Start 11/21/18 at 23:22; Stop 11/21/18 at 23:22; Status DC Ondansetron HCl (Zofran) 4 mg 1X ONCE IV ; Start 11/21/18 at 23:30; Stop 11/21/18 at 23:39; Status DC Famotidine (Pepcid Vial) 20 mg 1X ONCE IVP Last administered on 11/21/18at 23:39; Start 11/21/18 at 23:45; Stop 11/21/18 at 23:46; Status DC Prochlorperazine Edisylate (Compazine) 10 mg 1X ONCE IV Last administered on 11/22/18at 00:09; Start 11/22/18 at 00:15; Stop 11/22/18 at 00:16; Status DC Pantoprazole Sodium (Protonix Vial) 40 mg 1X ONCE IVP Last administered on 11/22/18at 00:21; Start 11/22/18 at 00:30; Stop 11/22/18 at 00:31; Status DC Multi-Ingredient Mouthwash/Gargle (Gi Cocktail) 20 ml 1X ONCE PO Last administered on 11/22/18at 00:21; Start 11/22/18 at 00:30; Stop 11/22/18 at 00:31; Status DC Ondansetron HCl (Zofran) 4 mg PRN Q4HRS PRN IV NAUSEA/VOMITING; Start 11/22/18 at 00:15; Stop 11/23/18 at 00:14 Metoclopramide HCl (Reglan Vial) 10 mg PRN Q6HRS PRN IV NAUSEA/VOMITING; Start 11/22/18 at 02:00; Stop 11/22/18 at 02:03; Status DC Morphine Sulfate (Morphine 4mg Syringe) 4 mg PRN Q4HRS PRN IV PAIN Last administered on 11/22/18at 02:32; Start 11/22/18 at 02:00 Metoclopramide HCl (Reglan Vial) 10 mg TIDACHC IV Last administered on 11/22/18at 11:35; Start 11/22/18 at 02:00 Nicotine (Nicoderm Cq 14mg) 1 patch DAILY TD Last administered on 11/22/18at 02:32; Start 11/22/18 at 02:30 Aspirin (Damaso Aspirin) 325 mg DAILY PO Last administered on 11/22/18at 10:00; Start 11/22/18 at 09:00 Glimepiride (Amaryl) 2 mg DAILY PO Last administered on 11/22/18at 10:00; Start 11/22/18 at 09:00 Acetaminophen/ Hydrocodone Bitart (Lortab 10/325) 1 tab PRN Q4HRS PRN PO PAIN; Start 11/22/18 at 09:00 Morphine Sulfate (Morphine Ir) 15 mg TID PO Last administered on 11/22/18at 13:38; Start 11/22/18 at 09:00 Nicotine (Nicoderm Cq 14mg) 1 patch DAILY TD ; Start 11/22/18 at 09:00; Stop 11/22/18 at 09:09; Status DC Prasugrel (Effient) 10 mg DAILY PO Last administered on 11/22/18at 10:00; Start 11/22/18 at 09:00 Sacubitril/ Valsartan (Entresto 49 Mg-51 Mg) 1 tab BID PO Last administered on 11/22/18at 10:00; Start 11/22/18 at 09:00 Alprazolam (Xanax) 1 mg TID PO Last administered on 11/22/18at 13:38; Start 11/22/18 at 09:00 Atorvastatin Calcium (Lipitor) 80 mg QHS PO ; Start 11/22/18 at 21:00 Carvedilol (Coreg) 25 mg BIDWMEALS PO ; Start 11/22/18 at 17:00 Vitamin D (Vitamin D3) 1,000 unit DAILY PO ; Start 11/23/18 at 09:00 Fish Oil (Fish Oil) 1,000 mg DAILY PO ; Start 11/23/18 at 09:00 Metformin HCl (Glucophage) 500 mg BIDWMEALS PO ; Start 11/24/18 at 09:00 Coenzyme Q10 (Coenzyme Q10) 50 mg DAILY PO ; Start 11/23/18 at 09:00 Pantoprazole Sodium (Protonix Vial) 40 mg BID IVP Last administered on 11/22/18at 10:00; Start 11/22/18 at 09:00 Insulin Human Lispro (HumaLOG) 0-7 UNITS TIDWMEALS SQ Last administered on 11/22/18at 11:35; Start 11/22/18 at 12:00 Dextrose (Dextrose 50%-Water Syringe) 12.5 gm PRN Q15MIN PRN IV SEE COMMENTS; Start 11/22/18 at 09:00 Sucralfate (Carafate) 1 gm QIDACHS PO Last administered on 11/22/18at 11:45; Start 11/22/18 at 11:30 Al Hydroxide/Mg Hydroxide (Mylanta Plus Xs) 30 ml PRN Q2HR PRN PO DYSPEPSIA; Start 11/22/18 at 09:00 Active Scripts Active Reported NICODERM CQ 14mg (Nicotine) 1 Each Patch.td24 1 Patch TP DAILY Entresto 49 mg-51 mg Tablet (Sacubitril/Valsartan) 1 Each Tablet 1 Each PO BID Glimepiride 2 Mg Tablet 1 Tab PO DAILY Metformin Hcl 1,000 Mg Tablet 1 Tab PO BID Morphine Sulfate 15 Mg Tablet 1 Tab PO TID Hydrocodone-Apap 10-325 (Hydrocodone Bit/Acetaminophen) 1 Each Tablet 1 Tab PO Q4HRS PRN Alprazolam 1 Mg Tablet 1 Tab PO TID Liberty 3-6-9 1,200 mg Softgel (Fish Oil/Borage/Flax/Om3,6,9#1) 1,200 Mg Capsule 1,200 Mg PO DAILY Vitamin D (Cholecalciferol (Vitamin D3)) 1,000 Unit Capsule 1 Cap PO DAILY Coq-10 (Ubidecarenone) 30 Mg Capsule 30 Mg PO DAILY Atorvastatin Calcium 80 Mg Tablet 1 Tab PO DAILY Effient (Prasugrel Hcl) 10 Mg Tablet 1 Tab PO DAILY Carvedilol 25 Mg Tablet 1 Tab PO BIDWMEALS Aspirin 325 Mg Tablet 1 Tab PO DAILY Allergies: Coded Allergies: spironolactone (Verified Allergy, Mild, 11/16/18) PSYCHOLOGICAL ROS: No: Hallucinations Eyes: No: Loss of vision HEENT: No: Epistaxis Respiratory: No: Shortness of breath Cardiovascular: yes: Chest Pain Gastrointestinal: YES: Nausea, Vomiting Neurological: No: Seizures Skin: No: Rash General: Alert, Oriented X3 HEENT: Atraumatic, PERRLA Lungs: Clear to auscultation Heart: Regular rate Abdomen: Soft Extremities: No edema Psych/Mental Status: Mood NL VITALS Vital Signs Date Time Temp Pulse Resp B/P (MAP) Pulse Ox O2 Delivery O2 Flow Rate FiO2 11/22/18 13:38 16 Room Air 11/22/18 10:40 98.0 69 147/91 (109) 97 Labs Laboratory Tests Test 11/21/18 22:07 11/21/18 22:12 11/21/18 22:30 11/22/18 04:30 White Blood Count 11.5 x10^3/uL (4.0-11.0) Red Blood Count 5.15 x10^6/uL (4.30-5.70) Hemoglobin 15.7 g/dL (13.0-17.5) Hematocrit 46.3 % (39.0-53.0) Mean Corpuscular Volume 90 fL (79-100) Mean Corpuscular Hemoglobin 31 pg (25-35) Mean Corpuscular Hemoglobin Concent 34 g/dL (31-37) Red Cell Distribution Width 12.8 % (11.5-14.5) Platelet Count 167 x10^3/uL (140-400) Neutrophils (%) (Auto) 84 % (31-73) Lymphocytes (%) (Auto) 12 % (24-48) Monocytes (%) (Auto) 3 % (0-9) Eosinophils (%) (Auto) 0 % (0-3) Basophils (%) (Auto) 1 % (0-3) Neutrophils # (Auto) 9.7 x10^3uL (1.8-7.7) Lymphocytes # (Auto) 1.4 x10^3/uL (1.0-4.8) Monocytes # (Auto) 0.3 x10^3/uL (0.0-1.1) Eosinophils # (Auto) 0.0 x10^3/uL (0.0-0.7) Basophils # (Auto) 0.1 x10^3/uL (0.0-0.2) Prothrombin Time 9.8 SEC (9.4-11.4) Prothromb Time International Ratio 0.9 (0.9-1.1) Activated Partial Thromboplast Time 23 SEC (23-33) Sodium Level 138 mmol/L (136-145) Potassium Level 4.5 mmol/L (3.5-5.1) Chloride Level 99 mmol/L (98-107) Carbon Dioxide Level 26 mmol/L (21-32) Anion Gap 13 (6-14) Blood Urea Nitrogen 10 mg/dL (8-26) Creatinine 1.3 mg/dL (0.7-1.3) Estimated GFR (Cockcroft-Gault) 59.7 BUN/Creatinine Ratio 8 (6-20) Glucose Level 253 mg/dL (70-99) Calcium Level 9.7 mg/dL (8.5-10.1) Magnesium Level 2.2 mg/dL (1.8-2.4) Total Bilirubin 0.6 mg/dL (0.2-1.0) Aspartate Amino Transf (AST/SGOT) 67 U/L (15-37) Alanine Aminotransferase (ALT/SGPT) 80 U/L (16-63) Alkaline Phosphatase 98 U/L (46-116) Troponin I Quantitative < 0.017 ng/mL (0-0.055) < 0.017 ng/mL (0-0.055) TE-Lfv-Y-Type Natriuretic Peptide 71 pg/mL (0-124) Total Protein 8.4 g/dL (6.4-8.2) Albumin 4.0 g/dL (3.4-5.0) Albumin/Globulin Ratio 0.9 (1.0-1.7) Lipase 89 U/L (73-393) Acetone Level Neg (NEG) Glucose (Fingerstick) 249 mg/dL (70-99) Blood Gas pH 7.62 (7.35-7.46) Blood Gas PCO2 20 mmHg (35-46) Blood Gas PO2 98 mmHg (80-100) Blood Gas HCO3 21 mmol/L (21-28) Arterial Bld O2 Saturation (Calc) 99 % (92-99) FiO2 21 % Test 11/22/18 07:36 11/22/18 10:15 11/22/18 11:27 Glucose (Fingerstick) 164 mg/dL (70-99) 171 mg/dL (70-99) Troponin I Quantitative < 0.017 ng/mL (0-0.055) Assessment/Plan 1. Chest pain with atypical features. Patient has known history of coronary artery disease as stated above with 9 stents placement between 2014 and 2017. He apparently had stress test in July 2018 and was told he did not need any intervention. His chest pain appears to be GI in etiology. Myocardial infarction has been ruled out. Check 2-D echocardiogram. Continue current secondary prevention measures. 2. Ischemic cardiomyopathy, chronic systolic heart failure s/p AICD implantation. Patient stated that his EF was between 30 and 40% on last ec hocardiogram. He is clinically well compensated. Continue current medical regimen. 3. Hypertension: Blood pressure elevated probably because of not taking medications from nausea/vomiting. Resume home medications and titrate for better control. 4. Hyperlipidemia: Continue statin therapy 5. Diabetes mellitus type 2: Treat per IM Thank you for your consultation GORDO SANDHU MD Nov 22, 2018 15:05
--- NOTE | 2018-11-22 15:45 | CARD ---
MR#: [id number] Date of Study: 11/22/2018 Ordering Physician: GORDO AGUILAR, Referring Physician: GORDO AGUILAR Tech: Desirae Noble RDCS APPROVED REPORT EXAM: Two-dimensional and M-mode echocardiogram with Doppler and color Doppler. Other Information Quality : AverageHR: 70bpm Rhythm : NSR INDICATION Chest Pain 2D DIMENSIONS RVDd3.0 (2.9-3.5cm)Left Atrium(2D)4.1 (1.6-4.0cm) IVSd1.7 (0.7-1.1cm)Aortic Root(2D)3.3 (2.0-3.7cm) LVDd4.9 (3.9-5.9cm)LVOT Diameter2.4 (1.8-2.4cm) PWd1.3 (0.7-1.1cm)LVDs3.8 (2.5-4.0cm) FS (%) 21.6 %SV48.9 ml LVEF(%)43.7 (>50%) M-Mode DIMENSIONS Left Atrium(MM)4.08 (2.5-4.0cm)Aortic Root3.62 (2.2-3.7cm) Aortic Valve AoV Peak Clarence.123.1cm/sAoV VTI22.9cm AO Peak GR.6.1mmHgAO Mean GR.3mmHg FRANCISCO (VTI)3.73cm2 Mitral Valve MV E Efxrvuqd52.1cm/sMV DECEL [id number] MV A Ufltvthz85.7cm/sE/A Ratio1.3 MV A [id number] Tricuspid Valve TR P. Sjrpsgjl370jl/sRAP [id number] TR Peak Gr.[id number] LEFT VENTRICLE The left ventricle is normal size. There is moderate concentric left ventricular hypertrophy. Left ve ntricle systolic function is mildly impaired. The Ejection Fraction is 40-45%. The left ventricular d iastolic function and filling is normal for age. RIGHT VENTRICLE The right ventricle is normal size. There is normal right ventricular wall thickness. The right ventr icular systolic function is normal. ATRIA The left atrium is mildly dilated. The right atrium size is normal. The interatrial septum is intact with no evidence for an atrial septal defect or patent foramen ovale as noted on 2-D or Doppler imagi ng. AORTIC VALVE The aortic valve is normal in structure and function. The aortic valve is trileaflet. Doppler and Col or Flow revealed no significant aortic regurgitation. There is no significant aortic valvular stenosi s. There is no aortic valvular vegetation. MITRAL VALVE The mitral valve is thickened but opens well. There is no evidence of mitral valve prolapse. There is no mitral valve stenosis. Doppler and Color-flow revealed trace to mild mitral regurgitation. TRICUSPID VALVE The tricuspid valve is normal in structure and function. Doppler and Color Flow revealed trace tricus pid regurgitation. The PA pressure was estimated at 37 mmHg. There is no tricuspid valve prolapse or vegetation. There is no tricuspid valve stenosis. PULMONIC VALVE The pulmonic valve is not well visualized. GREAT VESSELS The aortic root is normal in size. The ascending aorta is normal in size. The IVC is normal in size a nd collapses >50% with inspiration. PERICARDIAL EFFUSION There is no evidence of significant pericardial effusion. Critical Notification Critical Value: No <Conclusion> Left ventricle systolic function is mildly impaired. The Ejection Fraction is 40-45%. Pacer/ICD lead noted RA/RV. Trace to mild mitral regurgitation. Trace tricuspid regurgitation. The PA pressure was estimated at 37 mmHg. There is no evidence of significant pericardial effusion. Signed by : Gordo Aguilar, Electronically Approved : 11/22/2018 15:44:55
[2018-11-22 15:49] VITALS: BP 129/86
[2018-11-22 16:45] VITALS: BP 129/86
[2018-11-22] MEDS ORDERED: CARVEDILOL 12.5 MG TABLET PO SCH (17:00)
--- NOTE | 2018-11-22 17:57 | SSS ---
ADMIT DATE: 11/22/2018 HISTORY OF PRESENT ILLNESS: The patient is a 43-year-old male patient who presented with a complaint of recurrent bouts of nausea, vomiting, retrosternal chest pain, diaphoresis. He stated the pain is different from the pain he had prior to his angioplasty. He denied any orthopnea, paroxysmal nocturnal dyspnea, palpitation or syncope. He apparently saw his primary process operator approximately 2-3 weeks ago and at that time apparently, his stress test was unremarkable. He was evaluated in the Emergency Room and has had his first set of cardiac enzymes, which showed troponin to be less than 0.017. He has had 2 more sets of cardiac enzymes that ruled out myocardial infarction. He was seen by the process operator who ordered an echocardiogram, which showed the patient has left ventricular systolic function and is mildly impaired, ejection fraction was 40-45%. He has a pacer ICD lead noted in the right atrium, right ventricle, trace to mild mitral regurgitation, trace to mild tricuspid regurgitation. Pulmonary artery pressure was estimated at 37 mmHg. There is no evidence of significant pericardial effusion and the patient was discharged to follow with his primary care physician. He used nicotine dermal patch, so he was discharged with nicotine patch as well as Protonix and Zofran for nausea and vomiting. PAST MEDICAL HISTORY: Significant for coronary artery disease, status post multiple percutaneous coronary interventions stent deployment, total of 9 stents between 2014 and 2018 followed by [facility]. He has ischemic cardiomyopathy, status post AICD implantation in 2015; hypertension; hyperlipidemia; type 2 diabetes mellitus. PAST SURGICAL HISTORY: Significant for AICD implantation and PCI with stent deployment. FAMILY HISTORY: Significant for coronary artery disease and hypertension. SOCIAL HISTORY: He is and has a son and a daughter from a previous marriage. He continued to smoke a pack a day, does not drink alcohol or use any recreational drugs. He is on disability. 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 REVIEW OF SYSTEMS: As per history of present illness. PHYSICAL EXAMINATION: GENERAL: On examining him, he looked well and was clearly in no apparent respiratory distress. No pallor, jaundice, cyanosis, or thyromegaly. No jugular venous distension. No limb edema. VITAL SIGNS: His heart rate was 78, blood pressure was 129/86, temperature was 97.6, respiratory rate was 20, and oxygen saturation was 98%. HEAD, EYES, EARS, NOSE AND THROAT: Showed normocephalic, atraumatic. NECK: Supple. HEART: Showed normal first and second heart sounds. No gallop or murmur. CHEST: Clear to auscultation. No crepitation or rhonchi. ABDOMEN: Distended, soft, nontender. NEUROLOGIC: He was awake, alert, responding appropriately. All cranial nerves are intact. He moves extremities without difficulty. He ambulates without assistance or assistive devices. His EKG showed that he was atrial sensed ventricular paced rhythm at a rate of 90 beats per minute with secondary QRS widening, rightward axis, nonspecific ST-T changes are present. The EKG is not significantly changed compared to the patient's prior EKGs. LABORATORY DATA: His lab work showed that his white cell count was 11,500, hemoglobin 15.7, hematocrit 46, MCV 90 and platelet count of 167,000 with normal manual differential. Serum sodium 138, potassium 4.5, chloride 99, bicarbonate 26, anion gap of 13, BUN 10, creatinine 1.3, estimated GFR was 59 mL per minute. His glucose was 153, calcium was 9.7, magnesium 2.2. Total bilirubin and alkaline phosphatase is normal. AST and ALT are slightly elevated. Has 3 sets of cardiac enzymes, which showed a troponin to be less than 0.017. His total protein was 8.4, albumin was 4. Lipase was 89. His prothrombin time, INR and aPTT were normal. Toxic screen was negative. His chest x-ray showed that there is stable positioning of the AICD without acute pulmonary process. CT scan of the abdomen and pelvis with IV contrast, showed that there is no acute abnormalities seen. The patient was discharged home to continue on alprazolam 1 mg 3 times a day; aspirin 325 mg once a day; atorvastatin calcium 80 mg at bedtime; carvedilol 25 mg twice a day with meals; ergocalciferol for vitamin D 2000 mg daily; omega-3 fatty acid 1200 mg daily; glimepiride 2 mg daily; hydrocodone/APAP 10/325 one tablet every 4 hours; metformin 1000 mg twice a day; morphine sulfate 15 mg 3 times a day; Nicoderm patch 21 mg once a day for 2 weeks, 14 mg once a day for 2 weeks and 7 mg once a day for 2 weeks; Prasugrel for Effient 10 mg once a day; Entresto 49/51 mg twice a day and CoQ10 30 mg once a day. He was also discharged on Protonix 40 mg once a day as well as Zofran ODT 4 mg every 4 hours as needed for nausea and vomiting. FINAL DISCHARGE DIAGNOSES: Chest pain is atypical and most likely consistent with gastroesophageal reflux disease. The patient is known to have coronary artery disease, status post PCI with stent deployment x 9 between 2014 and 2017, ischemic cardiomyopathy with chronic systolic heart failure, status post AICD implantation. His ejection fraction has actually improved. Hypertension, hyperlipidemia, type 2 diabetes, and gastroesophageal reflux disease. THERESA SANCHEZ MD DR: FRANCOISE/ian JOB#: [id number] / [id number]
[2018-11-22] MEDS ORDERED: ATORVASTATIN CALCIUM 20 MG TABLET PO SCH (21:00)
[2018-11-23] MEDS ORDERED: UBIDECARENONE 50 MG CAPSULE. PO SCH (09:00)
[2018-11-23] MEDS ORDERED: OMEGA-3 FATTY ACIDS/FISH OIL 1,000 MG CAPSULE. PO SCH (09:00)
[2018-11-23] MEDS ORDERED: CHOLECALCIFEROL (VITAMIN D3) 1,000 UNIT TABLET PO SCH (09:00)
[2018-11-24] MEDS ORDERED: metFORMIN 500 MG TABLET PO SCH (09:00)
== END 2018-11-22 18:05 | disposition home or self-care (01) ==
LOC: ER 21:59 → 1 SOUTH 11-22 00:03
PROVIDERS: ADMIT Internal Medicine; ATTEND Internal Medicine
DX: R07.2 Precordial pain (principal); I25.10 Atherosclerotic heart disease of native coronary artery without angina pectoris; R11.2 Nausea with vomiting, unspecified; R10.10 Upper abdominal pain, unspecified; F17.210 Nicotine dependence, cigarettes, uncomplicated; E78.5 Hyperlipidemia, unspecified; E11.9 Type 2 diabetes mellitus without complications; I11.0 Hypertensive heart disease with heart failure; I25.5 Ischemic cardiomyopathy; I50.22 Chronic systolic (congestive) heart failure; K21.9 Gastro-esophageal reflux disease without esophagitis; Z82.49 Family history of ischemic heart disease and other diseases of the circulatory system; Z95.0 Presence of cardiac pacemaker; Z95.5 Presence of coronary angioplasty implant and graft; Z95.810 Presence of automatic (implantable) cardiac defibrillator
CPT/HCPCS: 36415; 36600; 71045; 74177; 80053; 82010; 82803; 82947; 83690; 83735; 83880; 84484; 85025; 85610; 85730; 93005; 93306; 96361; 96372; 96374; 96375; 96376; 99284; C9113; G0378; J0780; J1815; J2060; J2270; J2405; J2765; J3490; Q9967; G0379; J7030

== ENCOUNTER 2019-04-19 18:33 | Emergency (ER) | payer MEDICARE ==
[~2019-04-19] VITALS: Ht 172.7 cm; Wt 115.4 kg
[~2019-04-19 18:33] MED LIST changes: +ALPR1TAB6 PO; +GLIM2TAB7 PO; +HYDR-2769 PO; +METF10007 PO; +MORP15TA PO; +NICO1PAT25 TP; +SACU1TAB7 PO
[2019-04-19] MEDS ORDERED: IV RINGERS SOLUTION,LACTATED 1,000 ML IV SCH ×2 (18:50→21:00)
[2019-04-19] MEDS ORDERED: ENOXAPARIN ** NOTE DOSE ** SYRINGE SQ ONE ×2 (19:00→19:15)
[2019-04-19] MEDS ORDERED: NITROGLYCERIN OINT 1 GM PACKET. TP ONE (19:00)
[2019-04-19] MEDS ORDERED: ASPIRIN 81 MG TAB.CHEW PO ONE (19:00)
[2019-04-19 19:07] LABS: BASO # 0.1 x10^3/uL (0.0-0.2); BASO % 1 % (0-3); EOS # 0.2 x10^3/uL (0.0-0.7); EOS % 2 % (0-3); HEMATOCRIT 47.3 % (39.0-53.0); HEMOGLOBIN 15.4 g/dL (13.0-17.5); LYMPH % 19 % (24-48); MEAN CORPUSCULAR HEMOGLOBIN 30 pg (25-35); MEAN CORPUSCULAR HGB CONC 33 g/dL (31-37); MEAN CORPUSCULAR VOLUME 91 fL (79-100); MONO # 0.6 x10^3/uL (0.0-1.1); MONO % 6 % (0-9); NEUT # 7.8 x10^3uL (1.8-7.7); NEUT % 72 % (31-73); PLATELET COUNT 159 x10^3/uL (140-400); RED BLOOD COUNT 5.19 x10^6/uL (4.30-5.70); RED CELL DISTRIBUTION WIDTH 13.1 % (11.5-14.5); WHITE BLOOD COUNT 10.7 x10^3/uL (4.0-11.0)
[2019-04-19 19:16] LABS: CALCIUM 8.7 mg/dL (8.5-10.1); GFR 80.4; POTASSIUM 4.8 mmol/L (3.5-5.1)
[2019-04-19 19:28] LABS: ALBUMIN 3.4 g/dL (3.4-5.0); DIRECT BILIRUBIN 0.1 mg/dL (0.0-0.2); MAGNESIUM 1.9 mg/dL (1.8-2.4); TOTAL BILIRUBIN 0.6 mg/dL (0.2-1.0); TOTAL PROTEIN 7.4 g/dL (6.4-8.2)
--- NOTE | 2019-04-19 19:45 | RAD ---
EXAM: PORTABLE CHEST 1V INDICATION: Chest pain. TECHNIQUE: Single AP view COMPARISON: 11/21/2018 chest x-ray FINDINGS: Left chest multichamber AICD is redemonstrated. The heart size is unchanged in size, borderline enlarged.. The great vessels appear unremarkable. There is no hilar or mediastinal mass. The lungs are clear. There is no pleural effusion or pneumothorax. There are no significant osseous abnormalities. IMPRESSION: Stable borderline cardiomegaly. No acute superimposed cortical reprocess status post prior left multichamber AICD placement. Electronically signed by: Bernardo Chandler MD (04/19/2019 7:42 PM) [facility]
[2019-04-19] MEDS ORDERED: ONDANSETRON PF 4 MG/2 ML VIAL. IV PRN (20:45)
[2019-04-19] MEDS ORDERED: ACETAMINOPHEN 325 MG TABLET PO PRN (20:45)
[2019-04-19 20:46] LABS: BILIRUBIN,URINE NEG (NEG); CLARITY,URINE CLEAR; COLOR,URINE YELLOW; GLUCOSE,URINE 250 mg/dL (NEG); NITRITE,URINE NEG (NEG); RBC,URINE OCC /HPF (0-2); UROBILINOGEN,URINE 0.2 mg/dL (0.2 mg/dL)
[2019-04-19 20:47] LABS: BACTERIA,URINE 0 /HPF (0-FEW); GRANULAR CASTS,URINE OCC /HPF; HYALINE CASTS, URINE OCC /HPF; SQUAMOUS EPITHELIAL CELL,UR OCC /LPF
--- NOTE | 2019-04-19 20:57 | PHYS DOC ---
Past History Past Medical History: Anxiety, Arrhythmia, Diabetes, GERD, Hypertension, FL Past Surgical History: Pacemaker, Other Additional Past Surgical Histo: 9 stents placed; ICD pacemaker Smoking: Cigarettes Alcohol Use: None Drug Use: Marijuana Adult General Chief Complaint Chief Complaint: CHEST PAIN.. I ve had chest pain all morning.. here in central and radiates to my neck..." HPI HPI Patient is a 44 year old male who presents with above hx and complaints of chest pain that radiates to his neck. Patient states he's had pain in his back since this morning. Patient rates pain as 7 out of 10. Patient states it is with regard to prior episodes of angina. Patient does have significant medical history with prior coronary artery disease and FL with stent placements 9. Patient does have a history of hypertension. Patient does continue tobacco products. He states he has been compliant with his Plavix and aspirin. Patient normally follows at for his cardiac issues. Review of Systems Review of Systems Constitutional: Denies fever or chills [] Eyes: Denies change in visual acuity, redness, or eye pain [] HENT: Denies nasal congestion or sore throat [] Respiratory: Denies cough or shortness of breath [] Cardiovascular: No additional information not addressed in HPI [] GI: Denies abdominal pain, nausea, vomiting, bloody stools or diarrhea [] : Denies dysuria or hematuria [] Musculoskeletal: Denies back pain or joint pain [] Integument: Denies rash or skin lesions [] Neurologic: Denies headache, focal weakness or sensory changes [] Endocrine: Denies polyuria or polydipsia [] All other systems were reviewed and found to be within normal limits, except as documented in this note. Family History Family History Diabetes hypertension Current Medications Current Medications Current Medications Medications (Trade) Dose Ordered Sig/Tod Start Time Stop Time Status Last Admin Dose Admin Acetaminophen (Tylenol) 650 mg PRN Q4HRS PRN 04/19/19 20:45 04/20/19 20:44 UNV Albuterol/ Ipratropium (Duoneb) 3 ml RTQID 04/20/19 08:00 04/21/19 07:59 UNV Aspirin (Children'S Aspirin) 81 mg DAILY ONCE 04/20/19 09:00 04/20/19 09:01 UNV Clopidogrel Bisulfate (Plavix) 75 mg DAILY 04/20/19 09:00 UNV Enoxaparin Sodium (Lovenox 100mg Syringe) 100 mg BID 04/19/19 21:00 UNV Enoxaparin Sodium (Lovenox 120mg Syringe) 120 mg 1X ONCE 04/19/19 19:15 04/19/19 19:16 DC 04/19/19 19:04 120 MG Enoxaparin Sodium (Lovenox 150mg Syringe) 150 mg STK-MED ONCE 04/19/19 19:00 04/19/19 19:01 DC Lactated Ringer's 1,000 ml @ 160 mls/hr Q6H15M 04/19/19 20:45 UNV Nitroglycerin (Nitro-Bid Oint) 1 inch TID 04/19/19 21:00 UNV Ondansetron HCl (Zofran) 4 mg PRN Q4HRS PRN 04/19/19 20:45 04/20/19 20:44 UNV Allergies Allergies Allergies Coded Allergies Type Severity Reaction Last Updated Verified spironolactone Allergy Mild 11/16/18 Yes Physical Exam Physical Exam Constitutional: Moderate acute distress, non-toxic appearance. [] HENT: Normocephalic, atraumatic, bilateral external ears normal, oropharynx moist, no oral exudates, nose normal. [] Eyes: PERRLA, EOMI, conjunctiva normal, no discharge. [] Neck: Normal range of motion, no tenderness, supple, no stridor. [] Cardiovascular:Heart rate regular rhythm, no murmur []PMI to the left Lungs & Thorax: Bilateral breath sounds with apex with scattered wheezes on auscultation []. Patient has pacer/Defibrillator left chest wall Abdomen: Bowel sounds normal, soft, no tenderness, no masses, no pulsatile masses. [] Skin: Warm, dry, no erythema, no rash. [] Back: No tenderness, no CVA tenderness. [] Extremities: No tenderness, no cyanosis, no clubbing, ROM intact, no edema. [] Cording appreciated Neurologic: Alert and oriented X 3, normal motor function, normal sensory function, no focal deficits noted. [] Psychologic: Affect anxious, judgement normal, mood normal. [] Current Patient Data Vital Signs Vital Signs Date Time Temp Pulse Resp B/P (MAP) Pulse Ox O2 Delivery O2 Flow Rate FiO2 2/8/20 19:40 81 16 125/75 (92) 95 Room Air 04/19/19 19:04 97.9 Lab Results Laboratory Tests Test 04/19/19 18:42 04/19/19 19:40 White Blood Count 10.7 x10^3/uL (4.0-11.0) Red Blood Count 5.19 x10^6/uL (4.30-5.70) Hemoglobin 15.4 g/dL (13.0-17.5) Hematocrit 47.3 % (39.0-53.0) Mean Corpuscular Volume 91 fL (79-100) Mean Corpuscular Hemoglobin 30 pg (25-35) Mean Corpuscular Hemoglobin Concent 33 g/dL (31-37) Red Cell Distribution Width 13.1 % (11.5-14.5) Platelet Count 159 x10^3/uL (140-400) Neutrophils (%) (Auto) 72 % (31-73) Lymphocytes (%) (Auto) 19 % (24-48) L Monocytes (%) (Auto) 6 % (0-9) Eosinophils (%) (Auto) 2 % (0-3) Basophils (%) (Auto) 1 % (0-3) Neutrophils # (Auto) 7.8 x10^3uL (1.8-7.7) H Lymphocytes # (Auto) 2.0 x10^3/uL (1.0-4.8) Monocytes # (Auto) 0.6 x10^3/uL (0.0-1.1) Eosinophils # (Auto) 0.2 x10^3/uL (0.0-0.7) Basophils # (Auto) 0.1 x10^3/uL (0.0-0.2) Prothrombin Time 10.2 SEC (9.4-11.4) Prothrombin Time INR 1.0 (0.9-1.1) Activated Partial Thromboplast Time 22 SEC (23-33) L D-Dimer (Nubia) 0.67 mg/L (0.00-0.50) H Sodium Level 139 mmol/L (136-145) Potassium Level 4.8 mmol/L (3.5-5.1) Chloride Level 102 mmol/L (98-107) Carbon Dioxide Level 29 mmol/L (21-32) Anion Gap 8 (6-14) Blood Urea Nitrogen 9 mg/dL (8-26) Creatinine 1.0 mg/dL (0.7-1.3) Estimated GFR (Cockcroft-Gault) 80.4 Glucose Level 242 mg/dL (70-99) H Calcium Level 8.7 mg/dL (8.5-10.1) Magnesium Level 1.9 mg/dL (1.8-2.4) Total Bilirubin 0.6 mg/dL (0.2-1.0) Direct Bilirubin 0.1 mg/dL (0.0-0.2) Aspartate Amino Transferase (AST) 27 U/L (15-37) Alanine Aminotransferase (ALT) 41 U/L (16-63) Alkaline Phosphatase 72 U/L (46-116) Creatine Kinase 56 U/L (39-308) Troponin I Quantitative < 0.017 ng/mL (0-0.055) JM-Xfy-D-Type Natriuretic Peptide 25 pg/mL (0-124) Total Protein 7.4 g/dL (6.4-8.2) Albumin 3.4 g/dL (3.4-5.0) Lipase 153 U/L (73-393) Urine Collection Type Unknown Urine Color Yellow Urine Clarity Clear Urine pH 6.5 Urine Specific [place] 1.025 Urine Protein 30 mg/dl (NEG-TRACE) Urine Glucose (UA) 250 mg/dL (NEG) Urine Ketones (Stick) Neg mg/dL (NEG) Urine Blood Neg (NEG) Urine Nitrite Neg (NEG) Urine Bilirubin Neg (NEG) Urine Urobilinogen Dipstick 0.2 mg/dL (0.2 mg/dL) Urine Leukocyte Esterase Neg (NEG) Urine RBC Occ /HPF (0-2) Urine WBC 1-4 /HPF (0-4) Urine Squamous Epithelial Cells Occ /LPF Urine Bacteria 0 /HPF (0-FEW) Urine Hyaline Casts Occ /HPF Urine Granular Casts Occ /HPF Urine Mucus Mod /LPF EKG EKG My interpretation EKG shows a sinus rhythm at 85 bpm. Right axis deviation. Abnormal contour abnormality in anterior septal region. Possible findings of ischemia/FL.[] Radiology/Procedures Radiology/Procedures [][address] [address] IMAGING REPORT Signed PATIENT: TIMOTHY HOGAN ACCOUNT: [id number] : 1975 LOCATION: ER AGE: 44 SEX: M EXAM STATUS: REG ER ORD. PHYSICIAN: KATHERIN HUGHES MD REASON: cp PROCEDURE: PORTABLE CHEST 1V EXAM: PORTABLE CHEST 1V INDICATION: Chest pain. TECHNIQUE: Single AP view COMPARISON: 11/21/2018 chest x-ray FINDINGS: Left chest multichamber AICD is redemonstrated. The heart size is unchanged in size, borderline enlarged.. The great vessels appear unremarkable. There is no hilar or mediastinal mass. The lungs are clear. There is no pleural effusion or pneumothorax. There are no significant osseous abnormalities. IMPRESSION: Stable borderline cardiomegaly. No acute superimposed cortical reprocess status post prior left multichamber AICD placement. Electronically signed by: Palomo Chandler MD (04/19/2019 7:42 PM) [facility] DICTATED AND SIGNED BY: PALOMO CHANDLER MD DATE: 04/19/191941 CC: KATHERIN HUGHES MD; ELIZABETH JACOBSON MD ~ Course & Med Decision Making Course & Med Decision Making Pertinent Labs and Imaging studies reviewed. (See chart for details) Heart score [address] Bailon, with cardiology consult. After admitted pt decided to leave against medical advice . Begged pt. to reconsider his decision. Impression: 1. Chest Pain in Pt with know CADz ( Stents x 9, Defib/pacer placement) 2. Accelerated Hypertension 3. DM 242 4. Elevated D-dimer 0.67 5. Tobacco Use [] Dragon Disclaimer Dragon Disclaimer This electronic medical record was generated, in whole or in part, using a voice recognition dictation system. Departure Departure: Impression: Primary Impression: Chest pain Disposition: ADMITTED INPATIENT Condition: GUARDED Patient Instructions: Chest Pain (Nonspecific), [id number] Additional Instructions: AFTER P[T. ADMITTED, DECIDED HE DID NOT WANT TO STAY , LEFT AMA, ADVISE PT TO FOLLOW UP OR RETURN IF HE WISHED TO COMPLETE WORK UP. Dragon Disclaimer This chart was dictated in whole or in part using Voice Recognition software in a busy, high-work load, and often noisy Emergency Department environment. It may contain unintended and wholly unrecognized errors or omissions. Dragon Disclaimer This chart was dictated in whole or in part using Voice Recognition software in a busy, high-work load, and often noisy Emergency Department environment. It may contain unintended and wholly unrecognized errors or omissions. KATHERIN HUGHES MD Apr 19, 2019 20:57
[2019-04-19] MEDS ORDERED: NITROGLYCERIN OINT 1 GM PACKET. TP SCH (21:00)
[2019-04-19 21:02] VITALS: BP 124/78
[2019-04-19 23:10] LABS: AMPHETAMINE/METHAMPHETAMINE NEG (NEG); BARBITURATES NEG (NEG); BENZODIAZEPINES POS (NEG); CANNABINOIDS POS (NEG); COCAINE NEG (NEG); METHADONE NEG (NEG); OPIATES POS (NEG); PHENCYCLIDINE NEG (NEG)
--- NOTE | 2019-04-20 00:54 | EKG ---
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
[2019-04-20] MEDS ORDERED: IPRATRPIUM/ALBUTEROL 0.5/2.5MG 3 ML NEBU. NEB SCH (08:00)
[2019-04-20] MEDS ORDERED: ENOXAPARIN ** NOTE DOSE ** SYRINGE SQ SCH (09:00)
[2019-04-20] MEDS ORDERED: CLOPIDOGREL BISULFATE 75 MG TABLET PO SCH (09:00)
[2019-04-20] MEDS ORDERED: ASPIRIN 81 MG TAB.CHEW PO ONE (09:00)
[2019-04-20 16:44] LABS: THYROID STIM HORMONE (TSH) 0.589 uIU/mL (0.358-3.740)
== END 2019-04-19 21:10 | disposition other institution (70) ==
LOC: ER 18:33
DX: R07.9 Chest pain, unspecified (principal); I10 Essential (primary) hypertension; E11.9 Type 2 diabetes mellitus without complications; R79.1 Abnormal coagulation profile; I25.10 Atherosclerotic heart disease of native coronary artery without angina pectoris; F17.210 Nicotine dependence, cigarettes, uncomplicated; K21.9 Gastro-esophageal reflux disease without esophagitis; I25.2 Old myocardial infarction; Z95.0 Presence of cardiac pacemaker; Z88.8 Allergy status to other drugs, medicaments and biological substances
CPT/HCPCS: 36415; 71045; 80048; 80061; 80076; 80307; 81001; 82550; 83690; 83735; 83880; 84443; 84484; 85025; 85379; 85610; 85730; 93005; 96372; 99285; J1650; J7120

== ENCOUNTER 2019-08-23 21:52 | Observation (INO) | payer MEDICARE ==
[~2019-08-23] VITALS: Ht 172.7 cm; Wt 115.5 kg
--- NOTE | 2019-08-23 22:04 | PHYS DOC ---
Past History Past Medical History: Anxiety, Arrhythmia, CAD, Diabetes, GERD, Hypertension, [place], Other Past Surgical History: Angioplasty, Pacemaker, Other Additional Past Surgical Histo: 9 stents placed; ICD pacemaker Smoking: Cigarettes Alcohol Use: None Drug Use: Marijuana General Adult HPI: HPI: ".. I ve been having some nausea and vomiting.. dry heaves for past two days..I think.. I got some bad milk...I hurt in my chest and upper abdomen.. I think it s from all the dry heaving....but I got this heart hx... " I can't stop.. vomiting.." Patient is a 44 year old male who presents with above hx and complaints of nausea , vomiting, abdomen and chest pain with dyspnea. . Patient has significant medical history of anxiety, dysrhythmia, diabetes, GERD, hypertension, NE with 9 stents and ICD placement, continued tobacco and marijuana use. Pt.follows with Dr. Cruz. Patient states for the last 48 hours has had recurrent cyclic vomiting. Unable to tolerate even liquids. Patient states now he has generalized chest pain and abdomen pain. Has been able to past gas. Patient denies any recent travel outside the [place] area. Denies any specific ill contacts. Review of Systems: Review of Systems: Constitutional: Denies fever or chills Eyes: Denies change in visual acuity HENT: Denies nasal congestion or sore throat Respiratory: Denies cough or shortness of breath Cardiovascular: Complains of generalized chest pain GI: Complains of generalized abdominal pain, nausea, vomiting. Denies bloody stools or diarrhea : Denies dysuria Musculoskeletal: Denies back pain or joint pain Integument: Denies rash Neurologic: Denies headache, focal weakness or sensory changes Endocrine: Denies polyuria or polydipsia Lymphatic: Denies swollen glands Psychiatric: Denies depression or anxiety Heart Score: HEART Score for Chest Pain: HEART Score for Chest Pain Response (Comments) Value History Moderately Suspicious 1 ECG Nonspecific Repolarizatio 1 Age >45 - < 65 1 Risk Factors 1 or 2 Risk Factors 1 Troponin < Normal Limit 0 Total 4 Risk Factors: Risk Factors: DM, Current or recent (<one month) smoker, HTN, HLP, family history of CAD, obesity. Risk Scores: Score 0 - 3: 2.5% MACE over next 6 weeks - Discharge Home Score 4 - 6: 20.3% MACE over next 6 weeks - Admit for Clinical Observation Score 7 - 10: 72.7% MACE over next 6 weeks - Early Invasive Strategies Family History: Family History: Noncontributory to presentation Current Medications: Current Meds: See nursing for home meds Allergies: Allergies: Allergies Coded Allergies Type Severity Reaction Last Updated Verified spironolactone Allergy Mild 11/16/18 Yes Physical Exam: PE: Constitutional: in acute distress, non-toxic appearance. [] HENT: Normocephalic, atraumatic, bilateral external ears normal, oropharynx dry, no oral exudates, nose normal. [] Eyes: PERRLA, EOMI, conjunctiva normal, no discharge. [] Neck: Normal range of motion, no tenderness, supple, no stridor. [] Cardiovascular:Heart rate regular rhythm, no murmur [] Lungs & Thorax: Bilateral breath sounds equal apexes with scattered wheezes on auscultation []Defib. Pacer- Lt. Abdomen: Bowel sounds hyperactivel, soft, generalized tenderness, no masses, no pulsatile masses. [] Skin: Warm, diaphoretic, no erythema, no rash. [] Back: No tenderness, no CVA tenderness. [] Extremities: No tenderness, no cyanosis, no clubbing, ROM intact, no edema. No cording noted. Neurologic: Alert and oriented X 3, normal motor function, normal sensory function, no focal deficits noted. [] Psychologic: Affect anxious , judgement normal, mood normal. [] EKG: EKG: My interpretation of EKG shows a sinus rhythm at 88 bpm. Does have right axis deviation low voltage in limb leads has interventricular block. There is some J-point elevation in V1 to 3 and 4 there may be some contralateral depression in leads II and III. Abnormal EKG. [] Radiology/Procedures: Radiology/Procedures: [][address] [address] IMAGING REPORT Signed PATIENT: TIMOTHY HOGAN ACCOUNT: [id number] : 1975 LOCATION: ER AGE: 44 SEX: M EXAM STATUS: REG ER ORD. PHYSICIAN: KATHERIN HUGHES MD REASON: n/v PROCEDURE: ABDOMEN SUPINE & UPRIGHT EXAM: 1. CHEST 2 VIEWS. 2. ABDOMEN 2 VIEWS. HISTORY: Nausea, vomiting, tachycardia. COMPARISON: 04/19/2019. FINDINGS: A left-sided pacemaker/defibrillator has its leads in the right atrium, right ventricle and a left cardiac vein. There are no confluent infiltrates. There is no pneumothorax or pleural effusion. The heart is not enlarged. There is no pneumoperitoneum. There are no distended small bowel loops or significant air-fluid levels. There is gas distally. IMPRESSION: 1. No confluent infiltrates. 2. No evidence of obstruction. Electronically signed by: Flavio Goddard MD (08/24/2019 1:23 AM) [facility] DICTATED AND SIGNED BY: RENA GODDARD MD DATE: 08/24/19122 CC: KATHERIN HUGHES MD; PCP,UNKNOWN ~ Course & Med Decision Making: Course & Med Decision Making Pertinent Labs and Imaging studies reviewed. (See chart for details) Pt. Admitted to Dr. Foss/ Dr. Bailon. Cardiology consult. Plan VQ in morning after hydration. US in Am. Impression: 1. Nausea and Vomiting x 2 days 2. Chest pain 3. Abdomen pain 4. Dehydration 5. Leukocytosis 14.4 6. Diabetes glucose 195 7. Elevated d-dimer 1.57 8. Hypo-magnesium 1.7 9. Elevated AST 52 and ALT 65 10. Viral syndrome 11, Bronchitis 12. Tobacco Use [] Dragon Disclaimer: Dragon Disclaimer: This electronic medical record was generated, in whole or in part, using a voice recognition dictation system. Departure Departure: Disposition: 01 HOME/RESIDENCE PRIOR TO ADM Condition: STABLE Justification of Admission: Justification of Admission: Justification of Admission Dx: Yes Angina: Symp at Rest Dragon Disclaimer This chart was dictated in whole or in part using Voice Recognition software in a busy, high-work load, and often noisy Emergency Department environment. It may contain unintended and wholly unrecognized errors or omissions. Dragon Disclaimer This chart was dictated in whole or in part using Voice Recognition software in a busy, high-work load, and often noisy Emergency Department environment. It may contain unintended and wholly unrecognized errors or omissions. KATHERIN HUGHES MD Aug 23, 2019 22:03
--- NOTE | 2019-08-23 22:14 | EKG ---
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
[2019-08-23] MEDS ORDERED: IV RINGERS SOLUTION,LACTATED 1,000 ML IV SCH (22:15)
[2019-08-23] MEDS ORDERED: ASPI81TA59 PO (22:18)
[2019-08-23] MEDS ORDERED: FAMOTIDINE 20 MG/2 ML VIAL IVP ONE (22:30)
[2019-08-23] MEDS ORDERED: ONDANSETRON PF 4 MG/2 ML VIAL. IVP ONE (22:30)
[2019-08-23] MEDS ORDERED: ASPIRIN 325 MG TABLET PO ONE (22:30)
[2019-08-23] MEDS ORDERED: ONDANSETRON ODT 4 MG TAB.RAPDIS ONE (22:55)
[2019-08-23] MEDS ORDERED: MORPHINE SULFATE 10 MG/ML SYRINGE. ONE (22:56)
[2019-08-23] MEDS ORDERED: ONDANSETRON ODT 4 MG TAB.RAPDIS PO ONE (23:00)
[2019-08-23] MEDS ORDERED: diphenhydrAMINE 50 MG/ML VIAL IM ONE (23:00)
[2019-08-23] MEDS ORDERED: MORPHINE SULFATE 10 MG/ML SYRINGE. SQ ONE (23:00)
[2019-08-23 23:15] LABS: BASO # 0.2 x10^3/uL (0.0-0.2); BASO % 2 % (0-3); EOS % 0 % (0-3); HEMATOCRIT 47.8 % (39.0-53.0); HEMOGLOBIN 16.3 g/dL (13.0-17.5); LYMPH # 1.6 x10^3/uL (1.0-4.8); LYMPH % 11 % (24-48); MEAN CORPUSCULAR HEMOGLOBIN 31 pg (25-35); MEAN CORPUSCULAR HGB CONC 34 g/dL (31-37); MEAN CORPUSCULAR VOLUME 91 fL (79-100); MONO # 0.2 x10^3/uL (0.0-1.1); MONO % 2 % (0-9); NEUT # 12.3 x10^3uL (1.8-7.7); NEUT % 85 % (31-73); PLATELET COUNT 176 x10^3/uL (140-400); RED BLOOD COUNT 5.24 x10^6/uL (4.30-5.70); RED CELL DISTRIBUTION WIDTH 13.2 % (11.5-14.5); WHITE BLOOD COUNT 14.4 x10^3/uL (4.0-11.0)
[2019-08-23] MEDS ORDERED: PROCHLORPERAZINE 10 MG/2 ML VIAL. IM ONE (23:45)
[2019-08-23 23:59] LABS: CALCIUM 9.7 mg/dL (8.5-10.1); CREATININE 1.2 mg/dL (0.7-1.3); GFR 65.2
[2019-08-24 00:10] LABS: ALBUMIN 3.9 g/dL (3.4-5.0); DIRECT BILIRUBIN 0.1 mg/dL (0.0-0.2); MAGNESIUM 1.7 mg/dL (1.8-2.4); TOTAL BILIRUBIN 0.6 mg/dL (0.2-1.0); TOTAL PROTEIN 7.9 g/dL (6.4-8.2)
[2019-08-24 00:13] LABS: POTASSIUM 4.9 mmol/L (3.5-5.1)
[2019-08-24 00:48] LABS: BGAS PH 7.38 (7.35-7.46)
--- NOTE | 2019-08-24 01:26 | RAD ---
EXAM: 1. CHEST 2 VIEWS. 2. ABDOMEN 2 VIEWS. HISTORY: Nausea, vomiting, tachycardia. COMPARISON: 04/19/2019. FINDINGS: A left-sided pacemaker/defibrillator has its leads in the right atrium, right ventricle and a left cardiac vein. There are no confluent infiltrates. There is no pneumothorax or pleural effusion. The heart is not enlarged. There is no pneumoperitoneum. There are no distended small bowel loops or significant air-fluid levels. There is gas distally. IMPRESSION: 1. No confluent infiltrates. 2. No evidence of obstruction. Electronically signed by: Flavio Goddard MD (08/24/2019 1:23 AM) [facility]
[2019-08-24] MEDS ORDERED: MAGNESIUM HYDROXIDE 2,400 MG/30 ML ORAL.SUSP. PO ONE (01:30)
[2019-08-24] MEDS ORDERED: KETOROLAC 30 MG/ML VIAL. IVP ONE (01:45)
[2019-08-24] MEDS ORDERED: CONTRAST GIVEN MC PRN (02:15)
[2019-08-24] MEDS ORDERED: IOHEXOL 350 MG/ML 100 ML VIAL. IV ONE (02:15)
[2019-08-24 02:17] LABS: BARBITURATES NEG (NEG); BENZODIAZEPINES POS (NEG); CANNABINOIDS NEG (NEG); COCAINE NEG (NEG); METHADONE NEG (NEG); OPIATES POS (NEG); PHENCYCLIDINE NEG (NEG)
[2019-08-24 02:19] LABS: AMPHETAMINE/METHAMPHETAMINE NEG (NEG)
[2019-08-24 02:25] LABS: BACTERIA,URINE FEW /HPF (0-FEW); BILIRUBIN,URINE NEG (NEG); CLARITY,URINE CLEAR; COLOR,URINE AMBER; GLUCOSE,URINE NEG (NEG); HYALINE CASTS, URINE OCC /HPF; NITRITE,URINE NEG (NEG); RBC,URINE OCC /HPF (0-2); SQUAMOUS EPITHELIAL CELL,UR OCC /LPF; UROBILINOGEN,URINE 0.2 mg/dL (0.2 mg/dL); WBC,URINE OCC /HPF (0-4)
[2019-08-24] MEDS ORDERED: ONDANSETRON PF 4 MG/2 ML VIAL. IVP PRN (02:45)
[2019-08-24] MEDS ORDERED: IV RINGERS SOLUTION,LACTATED 1,000 ML IV SCH (03:00)
[2019-08-24] MEDS ORDERED: ACETAMINOPHEN 325 MG TABLET PO PRN (03:00)
[2019-08-24] MEDS ORDERED: MAGNESIUM SULFATE 2GM 50 ML IV ONE (03:30)
[2019-08-24] MEDS ORDERED: NICOTINE 21MG PATCH. TD ONE (03:45)
[2019-08-24 04:15] VITALS: BP 139/85
[2019-08-24] MEDS ORDERED: NICOTINE 7MG PATCH. TD PRN (05:00)
[2019-08-24 06:05] VITALS: BP 142/87
[2019-08-24] MEDS ORDERED: ASPIRIN CHEWABLE 81 MG TABLET. PO SCH (08:00)
[2019-08-24] MEDS ORDERED: IPRATRPIUM/ALBUTEROL 0.5/2.5MG 3 ML NEBU. NEB SCH (08:00)
[2019-08-24] MEDS ORDERED: ENOXAPARIN ** NOTE DOSE ** SYRINGE SQ SCH (09:00)
[2019-08-24] MEDS ORDERED: AZITHROMYCIN 250 MG TABLET. PO SCH (09:00)
--- NOTE | 2019-08-24 09:56 | HP ---
ADMIT DATE: 08/24/2019 ATTENDING PHYSICIAN: Dr. Gutiérrez. CHIEF COMPLAINT: Vomiting and dry heaves with some localized epigastric pain. HISTORY OF PRESENT ILLNESS: The patient is a 44-year-old gentleman with a 1-day history of nausea, vomiting, significant dyspnea, and some epigastric chest pain from the acid vomitus. EKG was nondiagnostic. He has a permanent pacemaker. There is a strong family history of heart disease with 9 previous stents, ICD and pacemaker. Enzymes were negative. He was brought in overnight for observation and IV hydration. He continues to smoke with marijuana use. He has had cyclic vomiting for the last 48 hours. PAST MEDICAL HISTORY: As noted 9 stents, ICD, pacemaker, diabetes, gastroesophageal reflux disease, hypertension. SOCIAL HISTORY: He is disabled. He still smokes. He uses recreational marijuana. He denies any alcohol use. CURRENT MEDICINES: Reviewed. He takes aspirin 1 daily, Coreg, alprazolam 3 times a day, Lipitor 80 mg daily, Coreg 25 mg b.i.d., vitamin D3, fish oil, Amaryl, hydrocodone, metformin, morphine, Effient, valsartan in the form of Entresto and Coenzyme Q10. ALLERGIES: HE HAS ALLERGIES ALDACTONE, EXACT ETIOLOGY IS UNCLEAR. FAMILY HISTORY: Noncontributory. REVIEW OF SYSTEMS: Significant for the GI symptoms of vomiting. No fevers or chills. He denied any palpitation. All other systems reviewed and turned to be negative. PHYSICAL EXAMINATION: GENERAL: When I saw him, this is an obese young male. VITAL SIGNS: Initial vital signs in the ED showed a blood pressure 189/97, repeated by the time I saw him, it came down to 139/85, pulse is 96 and regular. He was afebrile. Oxygen saturation 95% on room air. HEENT: Head is without trauma. Pupils are reactive. Sclerae nonicteric. The oropharynx is clear. NECK: Supple, no bruits. LUNGS: Otherwise clear. CARDIOVASCULAR: Showed distant heart tones. No obvious gallops. Peripheral pulses are palpable and full. ABDOMEN: Obese, protuberant. No organomegaly. Bowel sounds are normoactive. EXTREMITIES: Showed no cyanosis or edema. NEUROLOGIC: Focally intact. Speech is fluent. He did not have any focal deficits. SKIN: Warm and dry. PERTINENT LABORATORY STUDIES: The hemoglobin is 16.3 g/dL with white count of 14,400. Cardiac enzymes were negative for coronary ischemia. Nonfasting blood sugar 192. Potassium is 4.9 mEq per liter. Creatinine 1.2 mg/dL. Transaminases slightly elevated. The BNP was 358. Chest x-ray showed clear lung marks, permanent pacemaker. Heart size at the upper limits of normal. No acute infiltrates identified. No decompensation. ASSESSMENT: 1. This 44-year-old gentleman has a self-limiting gastroenteritis. 2. Epigastric pain due to acid in his vomitus. 3. Known coronary artery disease with 9 previous stents. 4. Permanent pacemaker with ICD. 5. Morbid obesity. 6. Type 2 diabetes. 7. Continued tobacco use. 8. Questionable compliance of meds. 9. Essential hypertension. PLAN: 1. Observation status. 2. Continue home meds. 3. IV hydration. 4. Pain and nausea control. MOHAMUD GUTIÉRREZ MD DR: CATINA/ian JOB#: [id number] / [id number]
--- NOTE | 2019-08-24 10:04 | DS ---
DATE OF DISCHARGE: 08/24/2019 ATTENDING PHYSICIAN: Dr. Gutiérrez. FINAL DISCHARGE DIAGNOSES: 1. Self-limiting gastroenteritis. 2. Severe vomiting, resolved. 3. Dehydration, rehydrated. 4. Known ischemic cardiomyopathy. 5. Coronary artery disease with previous 9 stents. 6. Permanent pacemaker with ICD. 7. Hypertension. 8. Continued tobacco use and chronic obstructive pulmonary disease. 9. Obesity. 10. Diabetes. HISTORY OF PRESENT ILLNESS: This 44-year-old gentleman with known heart disease, AICD pacemaker, and history of 9 stents who had a 2-day history of profound nausea and vomiting. He has epigastric pain from the acid from the vomitus. Enzymes were negative. EKG was nondiagnostic. Chest x-ray was clear. He was admitted for evaluation and dehydration. PHYSICAL EXAMINATION: Please see the dictated note. PERTINENT LABORATORY AND X-RAY STUDIES: Cardiac enzymes were negative for coronary ischemia. BNP was 358, lipase was adequate at 59, nonfasting blood sugar 192. Hemoglobin maintained at 16.3 g/dL with white count of 14,400. COURSE IN THE HOSPITAL: The patient was admitted. He was given IV fluids. Diet was advanced. He felt better. Symptoms have resolved. He had no cardiac issues, no signs of decompensation or coronary ischemia. By the next hospital day, he was ready for discharge. I recommended a bland diet. Strong encouragement to avoid further tobacco use whether or not he will quit smoking remains to be seen. There are no changes on his home meds. He needs to continue his Coreg 25 mg p.o. b.i.d., aspirin daily, alprazolam 3 times a day, Lipitor 80 mg daily, vitamin D3, omega 3 fish oil, Amaryl 2 mg daily, hydrocodone p.r.n., metformin 1000 mg b.i.d., morphine sulfate p.r.n. Effient 10 mg daily, Entresto 49/51 mg b.i.d. and finally Coenzyme Q10. His prognosis is fair. He was discharged then from our hospital in stable condition with explicit instructions and followup care. MOHAMUD GUTIÉRREZ MD DR: CATINA/ian JOB#: [id number] / [id number]
[2019-08-24 10:51] LABS: THYROID STIM HORMONE (TSH) 0.611 uIU/mL (0.358-3.740)
== END 2019-08-24 10:15 | disposition home or self-care (01) ==
LOC: ER 21:52 → 1 SOUTH 08-24 03:46
PROVIDERS: ADMIT Hospitalist; ATTEND Hospitalist
DX: K52.9 Noninfective gastroenteritis and colitis, unspecified (principal); R11.2 Nausea with vomiting, unspecified; E66.01 Morbid (severe) obesity due to excess calories; E11.9 Type 2 diabetes mellitus without complications; I10 Essential (primary) hypertension; F17.200 Nicotine dependence, unspecified, uncomplicated; I25.10 Atherosclerotic heart disease of native coronary artery without angina pectoris; I25.5 Ischemic cardiomyopathy; E86.0 Dehydration; E83.42 Hypomagnesemia; J44.9 Chronic obstructive pulmonary disease, unspecified; Z79.82 Long term (current) use of aspirin; Z95.0 Presence of cardiac pacemaker; Z79.899 Other long term (current) drug therapy; Z79.84 Long term (current) use of oral hypoglycemic drugs; Z79.02 Long term (current) use of antithrombotics/antiplatelets; Z95.5 Presence of coronary angioplasty implant and graft
CPT/HCPCS: 36415; 71046; 74019; 80048; 80061; 80076; 80307; 81001; 82150; 82550; 82803; 82947; 83690; 83735; 83880; 84443; 84484; 85025; 85379; 85610; 85730; 86705; 86709; 86803; 87340; 93005; 94640; 96361; 96365; 96366; 96372; 96375; 99285; G0378; G0379; J0456; J0780; J1200; J1650; J1885; J2270; J2405; J3475; J3490; J7120; Q0162

== ENCOUNTER 2019-08-25 06:11 | Inpatient (IN) | payer MEDICARE ==
[~2019-08-25] VITALS: Ht 172.7 cm; Wt 115.5 kg
[~2019-08-25 06:11] MED LIST changes: +ASPI81TA59 PO
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
[2019-08-25] MEDS ORDERED: HYDROmorphone PF 1 MG/ML DISP.SYRIN IV ONE ×2 (06:45→08:00)
[2019-08-25] MEDS ORDERED: diphenhydrAMINE 50 MG/ML VIAL IVP ONE (06:45)
[2019-08-25] MEDS ORDERED: IV NORMAL SALINE 1,000ML 1,000 ML IV ONE (06:45)
[2019-08-25] MEDS ORDERED: ONDANSETRON PF 4 MG/2 ML VIAL. IVP ONE (06:45)
[2019-08-25 06:47] LABS: BASO # 0.1 x10^3/uL (0.0-0.2); BASO % 1 % (0-3); EOS % 0 % (0-3); HEMATOCRIT 47.7 % (39.0-53.0); LYMPH # 1.8 x10^3/uL (1.0-4.8); LYMPH % 12 % (24-48); MEAN CORPUSCULAR HEMOGLOBIN 31 pg (25-35); MEAN CORPUSCULAR HGB CONC 34 g/dL (31-37); MEAN CORPUSCULAR VOLUME 92 fL (79-100); MONO # 0.7 x10^3/uL (0.0-1.1); MONO % 5 % (0-9); NEUT # 12.5 x10^3uL (1.8-7.7); NEUT % 82 % (31-73); PLATELET COUNT 187 x10^3/uL (140-400); RED BLOOD COUNT 5.19 x10^6/uL (4.30-5.70); RED CELL DISTRIBUTION WIDTH 12.8 % (11.5-14.5); WHITE BLOOD COUNT 15.3 x10^3/uL (4.0-11.0)
[2019-08-25 06:51] LABS: BARBITURATES NEG (NEG); BENZODIAZEPINES POS (NEG); CANNABINOIDS NEG (NEG); COCAINE NEG (NEG); METHADONE NEG (NEG); OPIATES POS (NEG); PHENCYCLIDINE NEG (NEG)
[2019-08-25 06:53] LABS: AMPHETAMINE/METHAMPHETAMINE NEG (NEG)
[2019-08-25 06:55] LABS: CALCIUM 9.2 mg/dL (8.5-10.1); CREATININE 1.2 mg/dL (0.7-1.3); GFR 65.2; POTASSIUM 4.2 mmol/L (3.5-5.1)
[2019-08-25 07:03] LABS: ALBUMIN 3.9 g/dL (3.4-5.0); TOTAL BILIRUBIN 0.7 mg/dL (0.2-1.0); TOTAL PROTEIN 7.7 g/dL (6.4-8.2)
[2019-08-25 07:12] LABS: BACTERIA,URINE 0 /HPF (0-FEW); BILIRUBIN,URINE NEG (NEG); CLARITY,URINE CLEAR; COLOR,URINE YELLOW; GLUCOSE,URINE NEG (NEG); NITRITE,URINE NEG (NEG); RBC,URINE RARE /HPF (0-2); SQUAMOUS EPITHELIAL CELL,UR OCC /LPF; UROBILINOGEN,URINE 0.2 mg/dL (0.2 mg/dL); WBC,URINE RARE /HPF (0-4)
[2019-08-25] MEDS ORDERED: IOHEXOL 300 MG/ML 75 ML VIAL. IV ONE (07:15)
[2019-08-25] MEDS ORDERED: METOCLOPRAMIDE HCL 10 MG/2 ML VIAL. ONE (07:28)
[2019-08-25] MEDS ORDERED: METOCLOPRAMIDE HCL 10 MG/2 ML VIAL. IVP ONE (07:30)
[2019-08-25] MEDS ORDERED: CONTRAST GIVEN MC PRN (07:30)
[2019-08-25 07:48] LABS: % BANDS 1 % (0-9); % BASOS 2 % (0-3); % EOS 1 % (0-5); % LYMPHS 10 % (24-48); % MONOS 2 % (0-10); % SEGS 84 % (35-66)
[2019-08-25 07:50] LABS: PLT ESTIMATE ADEQUATE (ADEQUATE)
--- NOTE | 2019-08-25 08:00 | RAD ---
AP chest. HISTORY: Palpitations, history of heart attack, previous stents AP view was taken of the chest. Comparison is made with a recent study. Left pacemaker is unchanged. Lungs are free of confluent infiltrates. Heart is normal in size. There is no effusion. IMPRESSION: 1. No acute chest disease. Electronically signed by: Lyle Kelly MD (08/25/2019 7:57 AM) [id number]
--- NOTE | 2019-08-25 08:17 | RAD ---
CT abdomen and pelvis with contrast History: Epigastric abdominal pain, nausea and vomiting Technique: After the administration of intravenous contrast, CT imaging was performed of the abdomen and pelvis. No oral contrast was given. Multiplanar images are reviewed. Exposure: One or more of the following individualized dose reduction techniques were utilized for this examination: 1. Automated exposure control 2. Adjustment of the mA and/or kV according to patient size 3. Use of iterative reconstruction technique. Comparison: November 21, 2018 Findings: Leads from electronic cardiac device are noted. Gallbladder is present without obvious intraluminal abnormality by CT. No focal abnormality is identified of the liver, spleen, or pancreas. Both kidneys enhance, no hydronephrosis. 0.3-0.4 cm inferior right renal calculus is larger in interval. There is again fullness of the left adrenal gland with underlying nodule about 1.8 cm unchanged. Normal caliber appendix is visualized without adjacent inflammatory change. There is no significant inflammatory type change about the bowel. Segments of small bowel are upper limits of normal in caliber up to 2.8 cm such as in the left superior abdomen with suggestion of very wall thickening. The colon is not dilated. There is mild distention of urinary bladder. There is disc osteophyte complex at L5-S1. Facet degenerative change contributes to at least mild bilateral L5-S1 neural foramina compromise. Facet degenerative change also contributes to moderate to severe narrowing of the right T9-T10 neural foramen, to a somewhat lesser degree on the right at T10-T11. Impression: 1. There is no significant inflammatory type change about the bowel, no CT evidence of acute appendicitis. Segments of small bowel in the left abdomen are upper limits of normal caliber with suggestion of degree of wall thickening as could be seen with enteritis. 2. There is a small inferior right renal calculus, larger than previous exam. 3. There is thoracolumbar neural foramina compromise as stated. 4. There are stable nodule of the left adrenal gland. Electronically signed by: Luis Guerra MD (08/25/2019 8:14 AM) [id number]
--- NOTE | 2019-08-25 09:43 | EKG ---
[address] [address] Test Date: 2019-08-25 Test Time: 06:31:41 Pat Name: TIMOTHY HOGAN Department: Room: 111 A Gender: M General Surgery Physician Assistant: : 1975 Requested By: LETI COYLE Order Number: [id number] Reading MD: Lawrence Rodrgiuez MD Measurements Intervals [place] Rate: 79 P: 39 [place]: 138 QRS: 151 QRSD: 132 T: 38 QT: 396 QTc: 455 Interpretive Statements SINUS RHYTHM V-PACED Electronically Signed On 08-25-2019 12:57:57 CDT by Lawrence Rodriguez MD
[2019-08-25 09:54] VITALS: BP 157/89
[2019-08-25] MEDS ORDERED: CHOLECALCIFEROL (VITAMIN D3) 1,000 UNIT TABLET PO SCH (10:00)
[2019-08-25] MEDS ORDERED: NICOTINE 7MG PATCH. TD SCH (10:00)
[2019-08-25] MEDS ORDERED: UBIDECARENONE 50 MG CAPSULE. PO SCH (10:00)
[2019-08-25] MEDS ORDERED: GLIMEPIRIDE 2 MG TABLET PO SCH (10:00)
[2019-08-25] MEDS ORDERED: ALPRAZolam 0.5 MG TABLET PO SCH (10:00)
[2019-08-25] MEDS ORDERED: PRASUGREL 10 MG TABLET. PO SCH (10:00)
[2019-08-25] MEDS ORDERED: SACUBITRIL/VALSARTAN 49/51MG TABLET. PO SCH (10:00)
[2019-08-25] MEDS ORDERED: MORPHINE IR 15 MG TABLET PO SCH (10:00)
[2019-08-25] MEDS ORDERED: CARVEDILOL 12.5 MG TABLET PO SCH (10:00)
[2019-08-25] MEDS ORDERED: ATORVASTATIN CALCIUM 20 MG TABLET PO SCH (10:00)
[2019-08-25] MEDS ORDERED: OMEGA-3 FATTY ACIDS/FISH OIL 1,000 MG CAPSULE. PO SCH (10:00)
--- NOTE | 2019-08-25 10:32 | HP ---
ADMIT DATE: 08/25/2019 ATTENDING PHYSICIAN: Dr. Gutiérrez. CHIEF COMPLAINT: Abdominal pain and nausea. HISTORY OF PRESENT ILLNESS: The patient is a 44-year-old gentleman who was admitted to this hospital Sunday night. He had a self-limiting gastroenteritis with nausea, vomiting, dehydration. He got better. It was self-limiting. He was admitted, given IV fluids and just yesterday morning, Sunday, he was back to his baseline, he felt well, I discharged him. Since that time, he has not taken his oral narcotics. He has chronic pain syndrome and was taking morphine sulfate 15 mg 3 times a day, last dose was 2 days ago. He is having withdrawal symptoms. He had nausea, vague symptoms of discomfort. No chest pain or shortness of breath. In the ED as part of the workup, a troponin level was drawn and it was measured at 0.39. He has an extensive heart history. He is 44 years old. He has had 9 stents placed. He has an ischemic cardiomyopathy and an AICD pacemaker. I suspect that the elevation of troponin is due to stress demand. He is asymptomatic. Cardiology service was called. They recommended admission. Serial enzymes and Cardiology consultation has been placed. In seeing him today, his vital signs are stable. I restarted his narcotics. Serial cardiac enzymes will be ordered. PAST MEDICAL HISTORY: Significant for hypertension, polysubstance abuse. He continues to smoke, permanent pacemaker, type 2 diabetes, morbid obesity, gastroesophageal reflux, previous CO and ischemic cardiomyopathy. CURRENT MEDICATIONS: Reviewed. He takes Effient daily, aspirin daily, Lipitor 80 mg daily, Coreg 25 mg b.i.d., Entresto 49/51, one tablet b.i.d., hydrocodone p.r.n., morphine sulfate 15 mg 3 times a day, alprazolam 3 times a day, metformin, Amaryl, and vitamin D, omega 3 fish oil and Coenzyme Q10. ALLERGIES: He has and allergy to ALDACTONE, exact cause is unclear. SOCIAL HISTORY: He continues to use tobacco and marijuana and other substances. FAMILY HISTORY: Noncontributory. REVIEW OF SYSTEMS: Significant for the recent admission with self-limiting gastroenteritis. No diarrhea. He denied any chest pain, palpitations. No fevers, chills, COVID-19 exposure. All other systems were reviewed and turned to be negative. PHYSICAL EXAMINATION: GENERAL: When I saw him, this is a pleasant gentleman, not much different from when I discharged him yesterday. VITAL SIGNS: His initial vital signs in the ED showed a blood pressure of 145/103 mmHg, pulse is 80 and regular, temperature 98.7 degrees Fahrenheit, oxygen saturation 99% on room air. HEENT: Head is without trauma. Pupils are reactive. Sclerae was nonicteric. Oropharynx clear. NECK: Supple, no bruits identified. LUNGS: Otherwise clear. CARDIOVASCULAR: Showed distant heart tones. No gallops. Peripheral pulses are palpable and full. ABDOMEN: Obese, protuberant. No organomegaly. Bowel sounds are normoactive. EXTREMITIES: Show no cyanosis or edema. NEUROLOGIC: Focally intact. Affect is a bit flat. Speech was fluent. PERTINENT LABORATORY STUDIES: His white count was 15,000 today, hemoglobin 16.0 g/dL. Electrolytes showed a normal potassium of 4.2 mEq per liter, sodium 141, creatinine 1.2 mg/dL, nonfasting blood sugar 186. First set of troponins was measured at 0.392. IMAGING STUDIES: EKG is nondiagnostic and his chest x-ray showed no acute disease process AICD pacemaker in place. Repeat CT of the abdomen showed no obvious obstruction. There are inflammatory changes about the bowel, no acute appendicitis. There is a small right renal calculus, stable nodule in the left adrenal gland. ASSESSMENT: 1. A 44-year-old gentleman with nausea symptoms related to narcotic withdrawal. 2. Stress demand and elevation of troponin. 3. Known ischemic cardiomyopathy. 4. Coronary artery disease with previous infarct and history of 9 stents. 5. AICD and permanent pacemaker. 6. Chronic obstructive pulmonary disease with continued tobacco addiction. 7. Essential hypertension. 8. Gastroesophageal reflux disease. 9. Polysubstance abuse. PLAN: 1. Admit to the hospital for monitoring. 2. Serial cardiac enzymes. 3. Cardiology consultation has been obtained for recommendations. 4. Diabetic diet as tolerated. 5. Restart his scheduled narcotics. 6. Continue his cardiac meds as ordered. MOHAMUD GUTIÉRREZ MD DR: CATINA/ian JOB#: [id number] / [id number]
[2019-08-25 10:42] VITALS: BP 157/89
--- NOTE | 2019-08-25 12:46 | DS ---
DATE OF DISCHARGE: 08/25/2019 ATTENDING PHYSICIAN: Dr. Gutiérrez. FINAL DISCHARGE DIAGNOSES: 1. A 44-year-old gentleman with nausea, symptoms related to narcotic withdrawal. 2. Known ischemic cardiomyopathy. 3. Stress demand and elevation of troponin levels. 4. Known ischemic cardiomyopathy. 5. Coronary artery disease with history of 9 stents. 6. Permanent pacemaker and AICD. 7. Chronic obstructive pulmonary disease with continued tobacco addiction. 8. Essential hypertension. 9. Polysubstance abuse. 10. Gastroesophageal reflux disease. HISTORY AND PHYSICAL: The patient is a 44-year-old gentleman with multiple cardiac history, recently admitted and sent home with gastroenteritis. He presented today later having abdominal pain. He has not had any narcotics for the last 48 hours. He is on chronic morphine therapy for chronic pain. In the ED, he was evaluated. Repeat CT showed some nonspecific findings of his colon; however, his troponin was elevated at 0.392. Because of his heart history, cardiology services were consulted. They requested the patient to be observed and they would see him for followup. His last catheterization was a year ago. He has had a history of total 9 stents placed. PHYSICAL EXAMINATION: Please see dictated note. PERTINENT LABORATORY AND X-RAY STUDIES: As noted, a troponin level of 0.392. CT of the abdomen was fairly nonspecific. COURSE IN THE HOSPITAL: He had no symptoms of chest pain, no shortness of breath. He was admitted. We offered him a diet. I also gave him an oral dose of his oral narcotics. Several hours later, he decided to leave against medical advice. Evidently, he had called his neuropsychology medical consultant at [facility] and wishes to go there for followup care. So therefore on the same day of admission, the patient left the hospital against medical advice. MOHAMUD GUTIÉRREZ MD DR: CATINA/ian JOB#: [id number] / [id number]
[2019-08-26] MEDS ORDERED: ASPIRIN CHEWABLE 81 MG TABLET. PO SCH (09:00)
[2019-08-27] MEDS ORDERED: metFORMIN 500 MG TABLET PO SCH (17:00)
== END 2019-08-25 11:22 | disposition left against medical advice (07) | DRG 641 ==
LOC: ER 06:11 → 1 SOUTH 08:00
PROVIDERS: ADMIT Hospitalist; ATTEND Hospitalist
DX: E86.0 Dehydration (principal); F11.23 Opioid dependence with withdrawal; I25.5 Ischemic cardiomyopathy; E11.9 Type 2 diabetes mellitus without complications; F12.90 Cannabis use, unspecified, uncomplicated; G89.4 Chronic pain syndrome; I10 Essential (primary) hypertension; I25.10 Atherosclerotic heart disease of native coronary artery without angina pectoris; I25.2 Old myocardial infarction; J44.9 Chronic obstructive pulmonary disease, unspecified; K21.9 Gastro-esophageal reflux disease without esophagitis; K52.9 Noninfective gastroenteritis and colitis, unspecified; V29.9XXA Motorcycle rider (driver) (passenger) injured in unspecified traffic accident, initial encounter; Z72.0 Tobacco use; Z95.810 Presence of automatic (implantable) cardiac defibrillator; E66.01 Morbid (severe) obesity due to excess calories; F41.9 Anxiety disorder, unspecified; Z53.29 Procedure and treatment not carried out because of patient's decision for other reasons
CPT/HCPCS: 36415; 71045; 74177; 80053; 80307; 81001; 83690; 84484; 85007; 85025; 93005; 96361; 96374; 96375; 96376; J1170; J1200; J2405; J2765; Q9967; 99285-25; J7030

== ENCOUNTER 2020-04-09 06:44 | Emergency (ER) | payer MEDICARE ==
[~2020-04-09] VITALS: Ht 172.7 cm; Wt 118.0 kg
--- NOTE | 2020-04-09 07:06 | RAD ---
Exam performed: One view chest. Indication: Reason: chest pain / Spl. Instructions: / History: Date of Service: 04/09/2020 6:51 AM Comparison: One view chest from 08/25/2019. Single AP upright portable view chest findings: Cardiomediastinal silhouette is borderline enlarged, however grossly stable. Mild central vascular co ngestion is noted. There is a bipolar pacemaker in place. No acute infiltrates, effusion or pneumotho rax is detected. The bony structures are normal. Impression: Stable cardiomegaly with mild central vascular congestion Electronically signed by: Porsha Gallagher MD (04/09/2020 7:04 AM) [id number]
--- NOTE | 2020-04-09 07:12 | PHYS DOC ---
Past History Past Medical History: Anxiety, Arrhythmia, CAD, Diabetes, GERD, Hypertension, CT, Other Additional Past Medical Histor: last mi 10/27 Past Surgical History: Angioplasty, Pacemaker, Other Additional Past Surgical Histo: 9 stents placed; ICD pacemaker Smoking: Cigarettes Additional Smoking Information: quit a week ago Alcohol Use: None Drug Use: Marijuana Adult General Chief Complaint Chief Complaint: CHEST PAIN HPI HPI Patient is a 44-year-old male who presents to the emergency room complaining of chest tightness. He states that this started around 5 AM this morning and spread across his whole chest but is worse on the right. He also has pain shooting down his right arm and radiating up into his neck. He states his pain is 7 out of 10. Patient is very sleepy and lethargic during interview. He states he feels tired and confused. He states that he does not remember yesterday but then states that he felt normal yesterday. He does have a long cardiac history and has had multiple stents and has a pacemaker. He states he has had pain like this before but does not remember the last time does not remember what it was caused by. He was given nitro in route. He states that he was laying in bed when pain started. Review of Systems Review of Systems Complete ROS is negative unless otherwise documented in HPI Current Medications Current Medications Current Medications Medications (Trade) Dose Ordered Sig/Tod Start Time Stop Time Status Last Admin Dose Admin Aspirin (Aspirin Chewable) 324 mg 1X ONCE 04/09/20 07:15 04/09/20 07:16 Allergies Allergies Allergies Coded Allergies Type Severity Reaction Last Updated Verified spironolactone Allergy Mild 08/23/19 Yes Physical Exam Physical Exam General: Awake, lethargic, NAD. Well Nourished, well hydrated. Cooperative HEENT: Atraumatic, EOMI, PERRL, airway patent, moist oral mucosa Neck: Supple, trachea midline Respiratory: CTA bilaterally, normal effort, no wheezing/crackles CV: RRR, no murmur, cap refill <2 GI: Soft, nondistended, nontender, no masses MSK: No obvious deformities Skin: Warm, dry, intact Neuro: A&O x3, speech slowed, sensory and motor grossly intact, no focal deficits Psych: Normal affect, normal mood, not suicidal or homicidal Current Patient Data Vital Signs Vital Signs Date Time Temp Pulse Resp B/P (MAP) Pulse Ox O2 Delivery O2 Flow Rate FiO2 04/09/20 06:44 98.3 77 16 151/91 (111) 99 Room Air EKG EKG [] Radiology/Procedures Radiology/Procedures [] Heart Score Risk Factors: Risk Factors: DM, Current or recent (<one month) smoker, HTN, HLP, family history of CAD, obesity. Risk Scores: Risk Factors: DM, Current or recent (<one month) smoker, HTN, HLP, family history of CAD, obesity. Course & Med Decision Making Course & Med Decision Making Pertinent Labs and Imaging studies reviewed. (See chart for details) Patient is a 44-year-old male who presents to the emergency room with atypical chest pain. Patient does have a long cardiac history and a cardiac work-up will be done to evaluate for possible atypical cardiac chest pain. Patient states he did initially have shortness of breath which is now resolved. He also is having neck and arm pain. Will order a D-dimer to rule out a pulmonary embolism. EKG has several chronic abnormalities but no signs of ST elevation. CBC, CMP, BNP, troponin, chest x-ray were ordered. Patient was given aspirin. Patient did have an elevated D-dimer. I discussed with him that we recommend a CT angio and admission given his history. At this time patient declines. He states that he cannot afford a high hospital bill and is asking to sign out. He is feeling significantly better. Patient has requested to leave AGAINST MEDICAL ADVICE. I have discussed the benefits of staying for a full work up and the patient would like to leave. I discussed the risks of leaving including but not limited to , permenant end-organ damage, worsening of condition and patient stated understanding. Patient signed out against medical advice. Dragon Disclaimer Dragon Disclaimer This electronic medical record was generated, in whole or in part, using a voice recognition dictation system. Departure Departure: Impression: Primary Impression: Chest pain Disposition: 07 AMA/ELOPED/LWBS Condition: IMPROVED Referrals: PCP,COLLEEN (PCP) Scripts Nitroglycerin (NITROGLYCERIN SubLingual) 0.4 Mg Tab.subl 1 TAB SL UD for chest pain, #25 TAB 0 Refills 1st sign of attack; may repeat every 5 mins; if pain persists after 3 in 15 min, medical attention is recommended Prov: GRAHAM MORGAN MD 04/09/20 GRAHAM MORGAN MD Apr 09, 2020 07:12
[2020-04-09] MEDS ORDERED: ASPIRIN CHEWABLE 81 MG TABLET. PO ONE (07:15)
[2020-04-09 07:21] LABS: CALCIUM 8.6 mg/dL (8.5-10.1); CREATININE 1.1 mg/dL (0.7-1.3); GFR 72.1; POTASSIUM 3.8 mmol/L (3.5-5.1)
[2020-04-09 07:39] LABS: BASO # 0.1 x10^3/uL (0.0-0.2); BASO % 1 % (0-3); EOS # 0.3 x10^3/uL (0.0-0.7); EOS % 3 % (0-3); HEMATOCRIT 42.5 % (39.0-53.0); LYMPH # 3.1 x10^3/uL (1.0-4.8); LYMPH % 33 % (24-48); MEAN CORPUSCULAR HEMOGLOBIN 30 pg (25-35); MEAN CORPUSCULAR HGB CONC 33 g/dL (31-37); MEAN CORPUSCULAR VOLUME 92 fL (79-100); MONO # 0.9 x10^3/uL (0.0-1.1); MONO % 10 % (0-9); NEUT % 53 % (31-73); PLATELET COUNT 128 x10^3/uL (140-400); RED BLOOD COUNT 4.63 x10^6/uL (4.30-5.70); RED CELL DISTRIBUTION WIDTH 12.9 % (11.5-14.5); WHITE BLOOD COUNT 9.5 x10^3/uL (4.0-11.0)
[2020-04-09 08:30] VITALS: BP 133/72
[2020-04-09] MEDS ORDERED: IOHEXOL 350 MG/ML 100 ML VIAL. IV ONE (08:30)
[2020-04-09] MEDS ORDERED: KETOROLAC 30 MG/ML VIAL. IVP ONE (08:45)
[2020-04-09] MEDS ORDERED: CONTRAST GIVEN. MC PRN (08:45)
[2020-04-09] MEDS ORDERED: NITR0.4T22 SL (08:48)
--- NOTE | 2020-04-09 09:24 | EKG ---
[address] [address] Test Date: 2020-04-09 Test Time: 06:48:31 Pat Name: TIMOTHY HOGAN Department: Room: Gender: M Instrument Fitter: MANSOOR : 1975 Requested By: GRAHAM MORGAN Order Number: [id number] Reading MD: Measurements Intervals [place] Rate: 78 P: 50 ID: [id number] QRS: 154 QRSD: 140 T: 34 QT: 410 QTc: 471 Interpretive Statements SINUS RHYTHM ABNORMAL RIGHT AXIS DEVIATION LOW LIMB LEAD VOLTAGE NON SPECIFIC INTRAVENTRICULAR BLOCK QRS(T) CONTOUR ABNORMALITY CONSISTENT WITH HIGH LATERAL INFARCT PROBABLY OLD ABNORMAL ECG RI6.02 No previous ECG available for comparison
== END 2020-04-09 09:00 | disposition left against medical advice (07) ==
LOC: ER 06:44
DX: R07.89 Other chest pain (principal); R41.0 Disorientation, unspecified; R53.83 Other fatigue; F41.9 Anxiety disorder, unspecified; I25.10 Atherosclerotic heart disease of native coronary artery without angina pectoris; E11.9 Type 2 diabetes mellitus without complications; K21.9 Gastro-esophageal reflux disease without esophagitis; I10 Essential (primary) hypertension; I25.2 Old myocardial infarction; F17.210 Nicotine dependence, cigarettes, uncomplicated; Z95.0 Presence of cardiac pacemaker; Z98.61 Coronary angioplasty status; Z88.8 Allergy status to other drugs, medicaments and biological substances
CPT/HCPCS: 36415; 71045; 80048; 83880; 84484; 85025; 85379; 93005; 96374; 99285; J1885

== ENCOUNTER 2020-05-04 08:33 | Emergency (ER) | payer MEDICARE ==
[~2020-05-04] VITALS: Ht 172.7 cm; Wt 118.0 kg
[~2020-05-04 08:33] MED LIST changes: +LISI10TA16 PO; -LISI10TA2 PO; +NITR0.4T22 SL
[2020-05-04 08:37] VITALS: BP 176/111
[2020-05-04] MEDS ORDERED: FAMOTIDINE 20 MG/2 ML VIAL IVP ONE (09:00)
[2020-05-04] MEDS ORDERED: KETOROLAC 15 MG/ML VIAL. IVP ONE (09:00)
[2020-05-04] MEDS ORDERED: ONDANSETRON PF 4 MG/2 ML VIAL. IVP ONE ×4 (09:00→13:15)
[2020-05-04] MEDS ORDERED: IV NORMAL SALINE 1,000ML 1,000 ML IV ONE ×2 (09:00→11:45)
--- NOTE | 2020-05-04 09:13 | PHYS DOC ---
Past History Past Medical History: Anxiety, Arrhythmia, CAD, Diabetes, GERD, Hypertension, CT, Other Additional Past Medical Histor: last mi 10/27 Past Surgical History: Angioplasty, Pacemaker, Other Additional Past Surgical Histo: 9 stents placed; ICD pacemaker Smoking: Cigarettes Alcohol Use: None Drug Use: Marijuana General Adult EDM: Chief Complaint: NAUSEA/VOMITING/DIARRHEA HPI: HPI: Patient is a 45 year old male who presents with nausea and vomiting. The patients states his symptoms began last night without any sort of prodrome. He reports feeling well yesterday. Patient denies any sick contacts, or recent COVid exposure. He is not suspicious of food poisoning. He notes some diarrhea in addition to the vomitting, which occurs around every 20 minutes. He denies bl ood in emesis or bowels. He notes abdominal pain that is not localized. He denies chest pains or SOB. He notes a recent confirmed negative Covid test last week. Review of Systems: Review of Systems: Constitutional: Denies fever or chills Eyes: Denies redness or eye pain HENT: Denies nasal congestion or sore throat Respiratory: Denies cough or shortness of breath Cardiovascular: Denies chest pain or palpitations GI: Notes abdominal pain, nausea, and vomiting : Denies dysuria or hematuria Musculoskeletal: Denies back pain or joint pain Integument: Denies rash or skin lesions Neurologic: Denies headache, focal weakness or sensory changes Complete systems were reviewed and found to be within normal limits, except as documented in this note. Current Medications: Current Meds: Current Medications Medications (Trade) Dose Ordered Sig/Tod Start Time Stop Time Status Last Admin Dose Admin Famotidine (Pepcid Vial) 20 mg 1X ONCE 05/04/20 09:00 2 09:01 DC Ketorolac Tromethamine (Toradol 15mg Vial) 15 mg 1X ONCE 05/04/20 09:00 05/04/20 09:01 DC Ondansetron HCl (Zofran) 4 mg 1X ONCE 05/04/20 09:00 05/04/20 09:01 DC Sodium Chloride 1,000 ml @ 1,000 mls/hr 1X ONCE 05/04/20 09:00 05/04/20 09:59 Allergies: Allergies: Allergies Coded Allergies Type Severity Reaction Last Updated Verified spironolactone Allergy Mild 08/23/19 Yes Physical Exam: PE: Constitutional: Well developed, well nourished, ill-appearing (vomiting during exam) HENT: Normocephalic, atraumatic Eyes: PERRL, EOMI, conjunctiva normal, no discharge Neck: Normal range of motion, no tenderness, supple Lungs & Thorax: No respiratory distress, equal chest rise and fall Abdomen: Soft, tenderness to palpation Skin: Warm, dry, no erythema, no rash Back: No tenderness, no CVA tenderness Extremities: No tenderness, ROM intact, no edema Neurologic: Alert and oriented X 3, normal motor function, normal sensory function, no focal deficits noted Psychologic: Affect normal, judgment normal Current Patient Data: Vital Signs: Vital Signs Date Time Temp Pulse Resp B/P (MAP) Pulse Ox O2 Delivery O2 Flow Rate FiO2 05/04/20 08:37 98.6 87 17 176/111 (132) 97 Room Air EKG: EKG: Normal sinus rhythm 68 bpm. Evidence of incomplete right bundle branch block. QRS 136 ms. QT/QTc 398/423 ms. Radiology/Procedures: Radiology/Procedures: PROCEDURE: CT ABD PELV W/ IV CONTRST ONLY CT ABDOMEN+PELVIS W History: Reason: abdominal pain, N/V. OMNI 75ML / Spl. Instructions: / History: Comparison: CT abdomen and pelvis 08/25/2019. Technique: CT of the abdomen and pelvis performed with intravenous contrast. Findings: Lung bases are clear. Partially visualized multi lead cardiac pacemaker defibrillator. The liver, gallbladder, bile ducts, pancreas, spleen, and adrenal glands are unremarkable. There is a 1 cm calcified nephrolith in the right renal pelvis, previously at the lower pole calyx and 2020 comparison. No significant perinephric stranding. Possible mild calyceal dilation. The left kidney is normal. The ureters and bladder are unremarkable. Stomach is well distended without wall thickening or inflammation. Small bowel is unremarkable. Normal appendix. Unremarkable colon. Mild atherosclerotic calcification of the aorta and iliac arteries without aneurysm. Prostate is unremarkable. No abdominopelvic adenopathy. No free fluid or free air. Mild degenerative changes of the thoracic and lumbar spine. Tiny umbilical hernia. Impression: 1. Interval transit of right nephrolithiasis measuring 1 cm at the right renal pelvis with possible mild right lower pole calyceal dilation. Correlate for symptoms of right renal colic. Exposure: One or more of the following individualized dose reduction techniques were utilized for this examination: 1. Automated exposure control 2. Adjustment of the mA and/or kV according to patient size 3. Use of iterative reconstruction technique. Electronically signed by: Paulino Ibrahim MD (05/04/2020 10:59 AM) [facility] Course & Med Decision Making: Course & Med Decision Making Pertinent Labs and Imaging studies reviewed. (See chart for details) Patient stable for discharge with outpatient follow-up with PCP. Discussed findings and plan with patient, who acknowledges understanding and agreement. Dragon Disclaimer: Dragon Disclaimer: This electronic medical record was generated, in whole or in part, using a voice recognition dictation system. Departure Departure: Impression: Primary Impression: Abdominal pain Qualified Codes: R10.84 - Generalized abdominal pain Additional Impression: Nausea & vomiting Qualified Codes: R11.2 - Nausea with vomiting, unspecified Disposition: 01 DC HOME SELF CARE/HOMELESS Condition: STABLE Referrals: ELIZABETH JACOBSON MD (PCP) SUE RIOS MD Patient Instructions: Abdominal Pain (Nonspecific), Clear Liquid Diet, [id number], Nausea and Vomiting, [id number]-[id number] Scripts Famotidine (PEPCID) 20 Mg Tablet 1 TAB PO BID for Gastritis, #20 TAB Prov: HANNAH KRAUS DO 05/04/20 Ondansetron (ONDANSETRON ODT) 4 Mg Tab.rapdis 1 TAB PO PRN Q6-8HRS PRN for NAUSEA, #16 TAB Prov: HANNAH KRAUS DO 05/04/20 Hyoscyamine Sulfate (LEVSIN-SL) 0.125 Mg Tab.subl 0.125 MG SL Q4-6HRS PRN for PAIN, #14 TAB Prov: HANNAH KRAUS DO 05/04/20 HANNAH KRAUS DO May 04, 2020 09:13
[2020-05-04 09:27] LABS: BASO # 0.1 x10^3/uL (0.0-0.2); BASO % 1 % (0-3); EOS # 0.1 x10^3/uL (0.0-0.7); EOS % 1 % (0-3); HEMOGLOBIN 15.9 g/dL (13.0-17.5); LYMPH # 1.8 x10^3/uL (1.0-4.8); LYMPH % 15 % (24-48); MEAN CORPUSCULAR HEMOGLOBIN 30 pg (25-35); MEAN CORPUSCULAR HGB CONC 33 g/dL (31-37); MEAN CORPUSCULAR VOLUME 92 fL (79-100); MONO # 0.6 x10^3/uL (0.0-1.1); MONO % 5 % (0-9); NEUT # 9.9 x10^3uL (1.8-7.7); NEUT % 79 % (31-73); PLATELET COUNT 187 x10^3/uL (140-400); RED BLOOD COUNT 5.34 x10^6/uL (4.30-5.70); RED CELL DISTRIBUTION WIDTH 12.8 % (11.5-14.5); WHITE BLOOD COUNT 12.4 x10^3/uL (4.0-11.0)
[2020-05-04 09:36] LABS: CALCIUM 9.5 mg/dL (8.5-10.1); CREATININE 1.2 mg/dL (0.7-1.3); GFR 64.9; POTASSIUM 4.2 mmol/L (3.5-5.1)
[2020-05-04 09:42] LABS: ALBUMIN 3.7 g/dL (3.4-5.0); ALBUMIN/GLOBULIN RATIO 0.9 (1.0-1.7); TOTAL BILIRUBIN 0.5 mg/dL (0.2-1.0); TOTAL PROTEIN 7.8 g/dL (6.4-8.2)
[2020-05-04] MEDS ORDERED: MORPHINE SULFATE 4 MG/ML DISP.SYRIN. IV ONE (10:00)
[2020-05-04] MEDS ORDERED: IOHEXOL 300 MG/ML 75 ML VIAL. IV ONE (10:15)
--- NOTE | 2020-05-04 10:16 | EKG ---
[address] [address] Test Date: 2020-05-04 Test Time: 10:05:53 Pat Name: TIMOTHY HOGAN Department: Room: Gender: M [place]: JANE : 1975 Requested By: HANNAH KRAUS Order Number: [id number] Reading MD: Measurements Intervals [place] Rate: 68 P: 48 [place]: 150 QRS: 76 QRSD: 136 T: 82 QT: 398 QTc: 423 Interpretive Statements SINUS RHYTHM LOW LIMB LEAD VOLTAGE NON SPECIFIC INTRAVENTRICULAR BLOCK ABNORMAL ECG RI6.02 No previous ECG available for comparison
[2020-05-04] MEDS ORDERED: METOCLOPRAMIDE HCL 10 MG/2 ML VIAL. IVP ONE (10:30)
--- NOTE | 2020-05-04 11:01 | RAD ---
CT ABDOMEN+PELVIS W History: Reason: abdominal pain, N/V. OMNI 75ML / Spl. Instructions: / History: Comparison: CT abdomen and pelvis 08/25/2019. Technique: CT of the abdomen and pelvis performed with intravenous contrast. Findings: Lung bases are clear. Partially visualized multi lead cardiac pacemaker defibrillator. The liver, gallbladder, bile ducts, pancreas, spleen, and adrenal glands are unremarkable. There is a 1 cm calcified nephrolith in the right renal pelvis, previously at the lower pole calyx an 2019 comparison. No significant perinephric stranding. Possible mild calyceal dilation. The left ki dney is normal. The ureters and bladder are unremarkable. Stomach is well distended without wall thickening or inflammation. Small bowel is unremarkable. Saritha l appendix. Unremarkable colon. Mild atherosclerotic calcification of the aorta and iliac arteries without aneurysm. Prostate is unre markable. No abdominopelvic adenopathy. No free fluid or free air. Mild degenerative changes of the thoracic and lumbar spine. Tiny umbilical hernia. Impression: 1. Interval transit of right nephrolithiasis measuring 1 cm at the right renal pelvis with possible mild right lower pole calyceal dilation. Correlate for symptoms of right renal colic. Exposure: One or more of the following individualized dose reduction techniques were utilized for thi s examination: 1. Automated exposure control 2. Adjustment of the mA and/or kV according to patient size 3. Use of iterative reconstruction technique. Electronically signed by: Paulino Ibrahim MD (05/04/2020 10:59 AM) [facility]
[2020-05-04] MEDS ORDERED: diphenhydrAMINE 50 MG/ML VIAL IVP ONE (11:45)
[2020-05-04 12:10] LABS: BARBITURATES NEG (NEG); BENZODIAZEPINES POS (NEG); CANNABINOIDS NEG (NEG); COCAINE NEG (NEG); METHADONE NEG (NEG); OPIATES POS (NEG); PHENCYCLIDINE NEG (NEG)
[2020-05-04 12:15] LABS: AMPHETAMINE/METHAMPHETAMINE NEG (NEG)
[2020-05-04 12:37] LABS: BACTERIA,URINE 0 /HPF (0-FEW); BILIRUBIN,URINE NEG (NEG); CLARITY,URINE CLEAR; COLOR,URINE YELLOW; GLUCOSE,URINE NEG (NEG); NITRITE,URINE NEG (NEG); SQUAMOUS EPITHELIAL CELL,UR OCC /LPF; UROBILINOGEN,URINE 0.2 mg/dL (0.2 mg/dL)
[2020-05-04] MEDS ORDERED: ONDA4TAB12 PO (13:05)
[2020-05-04] MEDS ORDERED: FAMO-63 PO (13:05)
[2020-05-04] MEDS ORDERED: HYOS0.1265 SL (13:05)
== END 2020-05-04 13:35 | disposition home or self-care (01) ==
LOC: ER 08:33
DX: R11.2 Nausea with vomiting, unspecified (principal); R10.84 Generalized abdominal pain; R19.7 Diarrhea, unspecified; I25.10 Atherosclerotic heart disease of native coronary artery without angina pectoris; E11.9 Type 2 diabetes mellitus without complications; K21.9 Gastro-esophageal reflux disease without esophagitis; I10 Essential (primary) hypertension; I25.2 Old myocardial infarction; F17.210 Nicotine dependence, cigarettes, uncomplicated; Z95.0 Presence of cardiac pacemaker; Z88.8 Allergy status to other drugs, medicaments and biological substances; Z79.899 Other long term (current) drug therapy
CPT/HCPCS: 36415; 74177; 80053; 80307; 81001; 82553; 83690; 84484; 85025; 93005; 96361; 96374; 96375; 96376; 99285; G0480; J1200; J1885; J2270; J2405; J2765; J3490; J7030; Q9967

== ENCOUNTER 2020-07-06 07:45 | Emergency (ER) | payer MEDICARE ==
[~2020-07-06] VITALS: Ht 172.7 cm; Wt 118.0 kg
[~2020-07-06 07:45] MED LIST changes: +FAMO-63 PO; +HYOS0.1265 SL; +ONDA4TAB12 PO
[2020-07-06 12:15] VITALS: BP 158/85
[2020-07-06] MEDS ORDERED: FAMO-63 PO (12:26)
[2020-07-06] MEDS ORDERED: ONDA4TAB7 PO (12:26)
[2020-07-06] MEDS ORDERED: SUCR1ORA5 PO (12:28)
== END 2020-07-06 13:12 | disposition home or self-care (01) ==
LOC: ER 07:45
DX: R11.2 Nausea with vomiting, unspecified (principal); R10.9 Unspecified abdominal pain; F41.9 Anxiety disorder, unspecified; I25.10 Atherosclerotic heart disease of native coronary artery without angina pectoris; E11.9 Type 2 diabetes mellitus without complications; K21.9 Gastro-esophageal reflux disease without esophagitis; I10 Essential (primary) hypertension; I25.2 Old myocardial infarction; F17.210 Nicotine dependence, cigarettes, uncomplicated; Z98.61 Coronary angioplasty status; Z95.0 Presence of cardiac pacemaker; Z88.8 Allergy status to other drugs, medicaments and biological substances
CPT/HCPCS: 36415; 71045; 74177; 80053; 81001; 83690; 83880; 84484; 85025; 87086; 93005; 96361; 96374; 96375; 96376; 99285; C9113; J2270; J2405; J3010; J7030; Q9967

== ENCOUNTER 2020-10-04 04:37 | Emergency (ER) | payer MEDICARE ==
[~2020-10-04] VITALS: Ht 170.2 cm; Wt 112.2 kg
[~2020-10-04 04:37] MED LIST changes: +ONDA4TAB7 PO; +SUCR1ORA5 PO
[2020-10-04] MEDS ORDERED: KETOROLAC 60 MG/2 ML VIAL. IM ONE (04:45)
[2020-10-04] MEDS ORDERED: ONDANSETRON ODT 4 MG TAB.RAPDIS PO ONE (04:45)
--- NOTE | 2020-10-04 04:54 | PHYS DOC ---
Past History Past Medical History: Anxiety, Arrhythmia, CAD, Diabetes, GERD, Hypertension, [place], Other Additional Past Medical Histor: last mi 10/27 Past Surgical History: Angioplasty, Pacemaker, Other Additional Past Surgical Histo: 9 stents placed; ICD pacemaker Smoking: Cigarettes Alcohol Use: None Drug Use: Marijuana Adult General Chief Complaint Chief Complaint: NAUSEA/VOMITING/DIARRHEA HPI HPI Patient is a 45-year-old male with a past medical history significant for multiple comorbidities including known right-sided renal stones who presents with left-sided flank pain, 7 out of 10, sharp in nature with some radiation down towards his groin which feels similar to previous pain he has had with kidney stones. Denies any recent traumas, travels, fevers, chest pain, jayme rtness of breath, other abdominal pain, dysuria, diarrhea or blood in the stool. Denies any Covid/flu/cold symptoms. Does state he has some mild nonbloody nonbilious nausea and vomiting since last night. Denies any known ill contacts. Denies any alcohol or drug use. States before that he was eating and drinking normally for him. States his urine does seem darker today than usual. Review of Systems Review of Systems Constitutional: Denies fever or chills [] Eyes: Denies change in visual acuity, redness, or eye pain [] HENT: Denies nasal congestion or sore throat [] Respiratory: Denies cough or shortness of breath [] Cardiovascular: No additional information not addressed in HPI [] GI: Denies abdominal pain, nausea, vomiting, bloody stools or diarrhea [] : Denies dysuria or hematuria [] Musculoskeletal: Denies back pain or joint pain [] Integument: Denies rash or skin lesions [] Neurologic: Denies headache, focal weakness or sensory changes [] Endocrine: Denies polyuria or polydipsia [] All other systems were reviewed and found to be within normal limits, except as documented in this note. Current Medications Current Medications Current Medications Medications (Trade) Dose Ordered Sig/Tod Start Time Stop Time Status Last Admin Dose Admin Ketorolac Tromethamine (Toradol Im) 30 mg 1X ONCE 10/04/20 04:45 10/04/20 04:46 UNV Ondansetron HCl (Zofran Odt) 8 mg 1X ONCE 10/04/20 04:45 10/04/20 04:46 UNV Allergies Allergies Allergies Coded Allergies Type Severity Reaction Last Updated Verified spironolactone Allergy Mild 08/23/19 Yes Physical Exam Physical Exam Constitutional: Well developed, well nourished, no acute distress, non-toxic appearance. [] HENT: Normocephalic, atraumatic, oropharynx moist, no oral exudates, Eyes: conjunctiva normal, no discharge. [] Neck: Normal range of motion, no tenderness, supple, no stridor. [] Cardiovascular:Heart rate regular rhythm, no murmur [] Lungs & Thorax: Bilateral breath sounds clear to auscultation [] Abdomen: soft, no tenderness, no masses, no pulsatile masses. [] Skin: Warm, dry, no erythema, no rash. [] Back: Right CVA tenderness. [] Extremities: No tenderness, ROM intact, no edema. [] Neurologic: Alert and oriented X 3, no focal deficits noted. [] Psychologic: Affect normal, judgement normal, mood normal. [] EKG EKG [] Radiology/Procedures Radiology/Procedures [] Heart Score C/O Chest Pain: No Risk Factors: Risk Factors: DM, Current or recent (<one month) smoker, HTN, HLP, family history of CAD, obesity. Risk Scores: Risk Factors: DM, Current or recent (<one month) smoker, HTN, HLP, family history of CAD, obesity. Course & Med Decision Making Course & Med Decision Making Patient is a 45-year-old male who presents emergency department with a chief complaint of right leg pain and dark urine Vital signs notable for sinus tachycardia. Physical exam noted above. Patient started on IV fluid resuscitation and given Toradol for pain and Zofran for nausea. Laboratory analysis notable for leukocytosis, elevated creatinine, hematuria and proteinuria. CT notable for a 1.4 cm nonobstructing right renal pelvic calculus with adjacent fat stranding, diffuse hepatic steatosis and probable biliary sludge. Patient given dose of morphine and Rocephin. Discussed all findings with patient. Patient stated that he would like to be transferred to as his urologist is there. Called transfer line and patient transfer was denied as there bed capacity. Discussed this with patient and offered transfer to a different hospital. Patient very polite but stated he gets his care at and would like to go there. Asked to be discharged as his is going to drive him to the emergency department. Advised patient to hold on and let me call back and let them know this and maybe they could work something out. Called transfer line again to let them know and still denied patient transfer even after letting them know patient is currently. Come to the emergency department. Discussed this again with patient and offered again to have him transferred to a different hospital. Once again patient very politely said thank you but I am can have my take me to the emergency department then they cannot refuse care. Advised to go straight to the emergency department at without fail but if something happens or change his mind come directly back here and we would find him another hospital with a urologist to transfer him to. Patient very grateful, said thank you, verbalized understanding agreed with plan of discharge. Dragon Disclaimer Dragon Disclaimer This electronic medical record was generated, in whole or in part, using a voice recognition dictation system. Departure Departure: Impression: Primary Impression: Flank pain Additional Impressions: Dark urine Nausea & vomiting Renal lithiasis Pyelitis Disposition: HOME / SELF CARE / HOMELESS Condition: IMPROVED Referrals: ELIZABETH JACOBSON MD (PCP) Patient Instructions: Acute Kidney Injury, Diet for Kidney Stones, Hematuria, Adult, Kidney Stones Additional Instructions: Thank you for coming into the emergency department tonight and allowing us to take care of you. Please read all of the attached information above and understand the things we have talked about. You are given a copy of your CT report to take with you to . Other labs included a leukocytosis or elevated white blood cell count of 17, elevated kidney function labs called creatinine of 1.4, hematuria or blood in the urine and proteinuria which is protein in the urine As discussed please go straight to emergency department for continued evaluation and treatment and if for some reason you change your mind or cannot get in please come back here to the emergency department immediately and we will find you another hospital to transfer to. Problem Qualifiers DONN FOWLER MD Oct 04, 2020 04:54
[2020-10-04] MEDS ORDERED: IV RINGERS SOLUTION,LACTATED 1,000 ML IV ONE (05:00)
[2020-10-04] MEDS ORDERED: METOCLOPRAMIDE HCL 10 MG/2 ML VIAL. IVP ONE (05:00)
[2020-10-04 05:06] LABS: BASO # 0.1 x10^3/uL (0.0-0.2); BASO % 0 % (0-3); EOS % 0 % (0-3); HEMATOCRIT 48.3 % (39.0-53.0); HEMOGLOBIN 16.1 g/dL (13.0-17.5); LYMPH # 1.4 x10^3/uL (1.0-4.8); LYMPH % 8 % (24-48); MEAN CORPUSCULAR HEMOGLOBIN 31 pg (25-35); MEAN CORPUSCULAR HGB CONC 33 g/dL (31-37); MEAN CORPUSCULAR VOLUME 92 fL (79-100); MONO # 0.5 x10^3/uL (0.0-1.1); MONO % 3 % (0-9); NEUT # 15.6 x10^3uL (1.8-7.7); NEUT % 89 % (31-73); PLATELET COUNT 170 x10^3/uL (140-400); RED BLOOD COUNT 5.26 x10^6/uL (4.30-5.70); RED CELL DISTRIBUTION WIDTH 13.1 % (11.5-14.5); WHITE BLOOD COUNT 17.6 x10^3/uL (4.0-11.0)
[2020-10-04 05:12] LABS: BILIRUBIN,URINE NEG (NEG); CLARITY,URINE HAZY; COLOR,URINE YELLOW; GLUCOSE,URINE NEG (NEG)
[2020-10-04 05:13] LABS: BACTERIA,URINE 0 /HPF (0-FEW); HYALINE CASTS, URINE OCC /HPF; NITRITE,URINE NEG (NEG); RBC,URINE >40 /HPF (0-2); SQUAMOUS EPITHELIAL CELL,UR OCC /LPF; UROBILINOGEN,URINE 0.2 mg/dL (0.2 mg/dL)
[2020-10-04 05:15] LABS: CALCIUM 9.1 mg/dL (8.5-10.1); CREATININE 1.4 mg/dL (0.7-1.3); GFR 54.3; POTASSIUM 4.4 mmol/L (3.5-5.1)
[2020-10-04 05:22] LABS: % BANDS 3 % (0-9); % EOS 1 % (0-5); % LYMPHS 7 % (24-48); % MONOS 2 % (0-10); % SEGS 87 % (35-66); PLT ESTIMATE ADEQUATE (ADEQUATE)
--- NOTE | 2020-10-04 05:36 | RAD ---
EXAMINATION: CT abdomen and pelvis without IV contrast. INDICATION:45 years, Male, left flank pain. TECHNIQUE: Axial CT images of the abdomen and pelvis were obtained. Coronal and sagittal reformatted performed. COMPARISON: 07/06/2020. Exposure: One or more of the following individualized dose reduction techniques were utilized for thi s examination: 1. Automated exposure control 2. Adjustment of the mA and/or kV according to patient size 3. Use of iterative reconstruction technique. FINDINGS: LOWER CHEST: Unremarkable ABDOMEN/PELVIS: Within the limitation of noncontrast exam, Diffuse hepatic steatosis. No suspicious focal hepatic lesion. High density content in the gallbladde r, may represent concentrated bile and biliary sludge. No biliary ductal dilation. Unremarkable splee n and pancreas. Nodular thickening of the left adrenal gland without discrete nodule, unchanged since prior exam. Right adrenal gland is normal. Redemonstrated 1.4 cm nonobstructing right renal pelvic c alculus. This calculus is associated with adjacent fat stranding. No left renal calculus. No hydronep hrosis in either kidney. No bowel obstruction or wall thickening. Normal appendix. Mild aortoiliac atherosclerotic calcificati ons without significant narrowing. No pneumoperitoneum or ascites. No lymphadenopathy. Underdistended urinary bladder which limits evaluation. Unremarkable prostate. MUSCULOSKELETAL: No acute osseous process. IMPRESSION: 1. No left obstructive uropathy or urolithiasis. 2. Similar 1.4 cm nonobstructing right renal pelvic calculus with adjacent fat stranding. Consider c orrelation with urinalysis to exclude pyelitis. 3. Diffuse hepatic steatosis. 4. High density content in the gallbladder may represent concentrated bile versus biliary sludge. Electronically signed by: Balaji Black MD (10/04/2020 5:33 AM) [facility]
[2020-10-04] MEDS ORDERED: MORPHINE SULFATE 4 MG/ML DISP.SYRIN. IV ONE (06:00)
[2020-10-04] MEDS ORDERED: MORPHINE SULFATE 2 MG/ML DISP.SYRIN. ONE (06:09)
[2020-10-04] MEDS ORDERED: MORPHINE SULFATE 2 MG/ML DISP.SYRIN. IV ONE (06:15)
[2020-10-04 06:19] VITALS: BP 190/112
[2020-10-04] MEDS ORDERED: cefTRIAXone SODIUM 1 GM VIAL ONE (06:23)
--- NOTE | 2020-10-04 11:44 | EKG ---
[address] [address] Test Date: 2020-10-04 Test Time: 06:06:30 Pat Name: TIMOTHY HOGAN Department: Room: Gender: M [place]: : 1975 Requested By: DONN FOWLER Order Number: [id number] Reading MD: Measurements Intervals [place] Rate: 100 P: 41 [place]: 140 QRS: 125 QRSD: 138 T: 34 QT: 376 QTc: 488 Interpretive Statements SINUS RHYTHM ABNORMAL RIGHT AXIS DEVIATION LOW LIMB LEAD VOLTAGE NON SPECIFIC INTRAVENTRICULAR BLOCK QRS(T) CONTOUR ABNORMALITY CONSISTENT WITH SEPTAL INFARCT PROBABLY OLD CONSISTENT WITH HIGH LATERAL INFARCT PROBABLY OLD ABNORMAL ECG RI6.02 No previous ECG available for comparison
== END 2020-10-04 07:14 | disposition home or self-care (01) ==
LOC: ER 04:37
DX: N20.0 Calculus of kidney (principal); Z87.442 Personal history of urinary calculi; R11.2 Nausea with vomiting, unspecified; I25.10 Atherosclerotic heart disease of native coronary artery without angina pectoris; E11.9 Type 2 diabetes mellitus without complications; K21.9 Gastro-esophageal reflux disease without esophagitis; I10 Essential (primary) hypertension; I25.2 Old myocardial infarction; F17.210 Nicotine dependence, cigarettes, uncomplicated; Z98.61 Coronary angioplasty status; Z95.0 Presence of cardiac pacemaker; Z88.8 Allergy status to other drugs, medicaments and biological substances
CPT/HCPCS: 36415; 74176; 80048; 81001; 83690; 84484; 85007; 85025; 93005; 96361; 96365; 96372; 96375; 99285; J0696; J1885; J2270; J2765; J7120; Q0162

== ENCOUNTER 2020-12-26 20:49 | Emergency (ER) | payer MEDICARE ==
[~2020-12-26] VITALS: Ht 170.2 cm; Wt 112.2 kg
--- NOTE | 2020-12-26 21:23 | PHYS DOC ---
Past History Past Medical History: Anxiety, Arrhythmia, CAD, Diabetes, GERD, Hypertension, PA, Other Additional Past Medical Histor: last mi 10/27 (DONOVAN SHORE APRN) Past Surgical History: Angioplasty, Pacemaker, Other Additional Past Surgical Histo: 9 stents placed; ICD pacemaker (DONOVAN SHORE APRN) Smoking: Cigarettes Alcohol Use: None Drug Use: Marijuana (DONOVAN SHORE APRN) General Adult EDM: Chief Complaint: SYNCOPE HPI: HPI: Patient is a 45-year-old male who presents to the emergency department for syncopal episode. Patient reports that he walked to the bathroom and woke up on the floor. Was unwitnessed. Patient states he does not believe he had a seizure but more of a syncopal episode as he does have a history of syncopal episodes when he gets up too fast. Patient denies dizziness, chest pain, shortness of breath nausea or vomiting, vision changes, head or neck pain. Patient states "I feel fine". Patient has a neurologist at [facility], Dr. Aragon which he follows up with. Patient has a history of diabetes type 2, migraine, PA, hypertension, pacemaker. (DONOVAN SHORE APRN) Review of Systems: Review of Systems: Eyes: See HPI Respiratory: HPI Cardiovascular: See HPI GI: See HPI Musculoskeletal: See HPI Neurologic: See HPI (DONOVAN SHORE APRN) Allergies: Allergies: Allergies Coded Allergies Type Severity Reaction Last Updated Verified spironolactone Allergy Mild 10/04/20 Yes (DONOVAN SHORE APRN) Physical Exam: PE: Constitutional: Well developed, well nourished, no acute distress, non-toxic appearance. [] HENT: Normocephalic, atraumatic Eyes: PERRLA, 4 mm pupils bilaterally, EOMI, conjunctiva normal, no discharge. [] Neck: Normal range of motion, no tenderness, supple, no stridor. [] Cardiovascular:Heart rate regular rhythm, no murmur [] Lungs & Thorax: Bilateral breath sounds clear to auscultation [] Abdomen: Bowel sounds normal, soft, no tenderness, obese, no masses, no pul satile masses. [] Skin: Warm, dry, no erythema, no rash. [] Back: Normal range of motion Extremities: No tenderness, no cyanosis, no clubbing, ROM intact, no edema. [] Neurologic: Alert and oriented X 3, normal motor function, normal sensory function, no focal deficits noted, equal fire prevention chief strength bilaterally, no pronator drift, no limb ataxia, normal speech without any slurring, patient moves all 4 extremities equally. [] Psychologic: Affect normal, judgement normal, mood normal. [] (DONOVAN SHORE APRN) Current Patient Data: Labs: Laboratory Tests Test 12/26/20 21:39 White Blood Count 8.7 x10^3/uL Red Blood Count 4.57 x10^6/uL Hemoglobin 13.7 g/dL Hematocrit 41.7 % Mean Corpuscular Volume 91 fL Mean Corpuscular Hemoglobin 30 pg Mean Corpuscular Hemoglobin Concent 33 g/dL Red Cell Distribution Width 13.9 % Platelet Count 145 x10^3/uL Neutrophils (%) (Auto) 48 % Lymphocytes (%) (Auto) 39 % Monocytes (%) (Auto) 9 % Eosinophils (%) (Auto) 4 % Basophils (%) (Auto) 1 % Neutrophils # (Auto) 4.1 x10^3uL Lymphocytes # (Auto) 3.4 x10^3/uL Monocytes # (Auto) 0.8 x10^3/uL Eosinophils # (Auto) 0.3 x10^3/uL Basophils # (Auto) 0.1 x10^3/uL Sodium Level 141 mmol/L Potassium Level 4.2 mmol/L Chloride Level 103 mmol/L Carbon Dioxide Level 33 mmol/L Anion Gap 5 Blood Urea Nitrogen 13 mg/dL Creatinine 1.2 mg/dL Estimated GFR (Cockcroft-Gault) 64.9 BUN/Creatinine Ratio 11 Glucose Level 172 mg/dL Calcium Level 8.9 mg/dL Total Bilirubin 0.1 mg/dL Aspartate Amino Transf (AST/SGOT) 21 U/L Alanine Aminotransferase (ALT/SGPT) 31 U/L Alkaline Phosphatase 60 U/L Troponin I Quantitative < 0.017 ng/mL Total Protein 6.7 g/dL Albumin 3.3 g/dL Albumin/Globulin Ratio 1.0 Current Medications Medications (Trade) Dose Ordered Sig/Tod Route PRN Reason Start Time Stop Time Status Last Admin Dose Admin Sodium Chloride 1,000 ml @ 1,000 mls/hr 1X ONCE IV 12/26/20 21:30 12/26/20 22:29 DC 12/26/20 21:30 (DONOVAN SHORE APRN) EKG: EKG: EKG performed by ER staff at 2118 shows sinus rhythm with a rate of 83, QTc 471, no STEMI read by Dr. Coyle at 2124. (DONOVAN SHORE APRN) Radiology/Procedures: Radiology/Procedures: []PROCEDURE: CHEST AP ONLY Exam: Chest one view INDICATION: Syncope TECHNIQUE: Frontal view of the chest Comparisons: 07/06/2020 FINDINGS: Pacer with leads terminating the right heart, ventricle and coronary sinus. The cardiomediastinal silhouette and pulmonary vessels are within normal limits. The lung and pleural spaces are clear. IMPRESSION: No acute pulmonary process. Electronically signed by: Seth Haley MD (12/26/2020 10:16 PM) JAMES DICTATED AND SIGNED BY: SETH HALEY MD DATE: 12/26/202214 CC: EMERGENCY,DEPARTMENT; DONOVAN SHORE APRN; ELIZABETH JACOBSON MD ~MTH0 0 PROCEDURE: CT HEAD AND CERVICAL SPINE WO Exam: CT head and cervical spine INDICATION: Syncope TECHNIQUE: Sequential axial images through the head and cervical spine were obtained without the administration of IV contrast. Exposure: One or more of the following in the visualized dose reduction techniques were utilized for this examination: 1. Automated exposure control 2. Adjustment of the MA and/or KV according to patient size 3. Use of iterative of reconstructive technique Comparisons: None FINDINGS: Head: No focal parenchymal lesion or hemorrhage is identified. There is no midline shift or sulcal effacement. No acute vascular territory infarction is identified. San-white distinction is preserved. The ventricular system is within normal limits without compression hydrocephalus. The basal cisterns are well maintained. The visualized portions of the paranasal sinuses and mastoid air cells are well- pneumatized. No acute fractures. Cervical spine: Vertebral body heights and alignment are well-maintained. Fracture to the cervical spine is not identified. No significant spondylotic change in cervical spine. Visualized paraspinal soft tissues are unremarkable. IMPRESSION: 1. No acute intracranial abnormality. 2. Negative CT C-spine for acute traumatic injury. Electronically signed by: Seth Haley MD (12/26/2020 10:23 PM) JAMES DICTATED AND SIGNED BY: SETH HALEY MD DATE: 12/26/202220 CC: EMERGENCY,DEPARTMENT; DONOVAN SHORE APRN; ELIZABETH JACOBSON MD ~MTH0 0 (DONOVAN SHORE APRN) Heart Score: C/O Chest Pain: No Risk Factors: Risk Factors: DM, Current or recent (<one month) smoker, HTN, HLP, family history of CAD, obesity. Risk Scores: Score 0 - 3: 2.5% MACE over next 6 weeks - Discharge Home Score 4 - 6: 20.3% MACE over next 6 weeks - Admit for Clinical Observation Score 7 - 10: 72.7% MACE over next 6 weeks - Early Invasive Strategies (DONOVAN SHORE APRN) Course & Med Decision Making: Course & Med Decision Making Pertinent Labs and Imaging studies reviewed. (See chart for details) [] Patient presents to the emergency department for syncopal episode at home. Work-up in the ER consisted of orthostatic vital signs, blood work, EKG, chest x-ray and CT scan of head. Work-up in the ER is unremarkable. Patient was negative for orthostatic hypotension. Patient states that he is symptom free and has no complaints. Patient advised to follow-up with his neurologist Dr. Aragon at [facility]. He was advised to slowly change movements to not cause dizziness. He was also advised to increase his fluids. I discussed with patient all findings and diagnostic testing as well as the need to follow-up with PCP for further evaluation and treatment or return to the ER if any new or worsening symptoms. Strict return precautions were also discussed at length. Patient voiced understanding and agreement with the plan. Patient is hemodynamically stable at the time of disposition. (DONOVAN SHORE APRN) Dragon Disclaimer: Dragon Disclaimer: This electronic medical record was generated, in whole or in part, using a voice recognition dictation system. (DONOVAN SHORE APRN) Attending Co-Sign The patient was seen and interviewed as well as examined at the bedside. The chart was reviewed. The case was discussed. Agree with the plan of care. (LETI COYLE DO) Departure Departure: Impression: Primary Impression: Syncope Qualified Codes: R55 - Syncope and collapse Disposition: HOME / SELF CARE / HOMELESS Condition: GOOD Referrals: ELIZABETH JACOBSON MD (PCP) Patient Instructions: Syncope Additional Instructions: You were seen in the emergency department today for a syncopal episode. Your lab work was unremarkable and your imaging showed no acute findings. This time I am unsure of what caused your syncope. You stated that you no longer had any symptoms. I would increase my fluids at home as dehydration is a common cause of syncope. I would also slowly change positions as changing positions too home quently can cause syncope. I would follow-up with your primary care provider tomorrow. I would also call your neurologist Dr. Aragon tomorrow set up a follow-up appointment. Return to the emergency department if you develop chest pain, shortness of breath, syncope, lightheadedness or dizziness, intractable nausea or vomiting, vision changes, head pain or any new or worsening concerns. EMERGENCY DEPARTMENT GENERAL DISCHARGE INSTRUCTIONS Thank you for coming to [facility] (ED) today and trusting us with you care. We trust that you had a positivie experience in our Emergency Department. If you wish to speak to the department management, you may call the director at [phone]. YOUR FOLLOW UP INSTRUCTIONS ARE FOLLOWS: 1. Do you have a private Doctor? If you do not have a private doctor, please ask for a resource list of physicians or clinics that may be able to assist you with follow up care. 2. The Emergency Physician has interpreted your x-rays. The X-Ray specialist will also review them. If there is a change in the findings, you will be notified in 48 hours when at all possible. 3. A lab test or culture has been done, your results will be reviewed and you will be notified if you need a change in treatment. ADDITIONAL INSTRUCTIONS AND INFORMATION: 1. Your care today has been supervised by a physician who is specially trained in emergency care. Many problems require more than one evaluation for a complete diagnosis and treatment. We recommend that you schedule your follow up appointment as recommended to ensure complete treatment of you illness or injury. If you are unable to obtain follow up care and continue to have a problem, or if your condition worsens, we recommend that you return to the ED. 2. We are not able to safely determine your condition over the phone nor are we able to give sound medical advice over the phone. For these safety reasons, if you call for medical advice we will ask you to come to the ED for further evaluation. 3. If you have any questions regarding these discharge instructions please call the ED at [phone]. SAFETY INFORMATION: In the interest of safety, wellness, and injury prevention; we encourage you to wear your sealbelt, if you smoke; quite smoking, and we encourage family to use a protective helmet for bicycling and other sporting events that present an increased risk for head injury. IF YOUR SYMPTOMS WORSEN OR NEW SYMPTOMS DEVELOP, OR YOU HAVE CONCERNS ABOUT YOUR CONDITION; OR IF YOUR CONDITION WORSENS WHILE YOU ARE WAITING FOR YOUR FOLLOW UP APPOINTMENT; EITHER CONTACT YOUR PRIMARY CARE DOCTOR, THE PHYSICIAN WHOSE NAME AND NUMBER YOU WERE GIVEN, OR RETURN TO THE ED IMMEDIATELY. DONOVAN SHORE APRN Dec 26, 2020 21:23 LETI COYLE DO Dec 27, 2020 19:43
[2020-12-26] MEDS ORDERED: IV NORMAL SALINE 1,000ML 1,000 ML IV ONE (21:30)
--- NOTE | 2020-12-26 21:38 | EKG ---
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
[2020-12-26 22:05] LABS: BASO # 0.1 x10^3/uL (0.0-0.2); BASO % 1 % (0-3); EOS # 0.3 x10^3/uL (0.0-0.7); EOS % 4 % (0-3); HEMATOCRIT 41.7 % (39.0-53.0); HEMOGLOBIN 13.7 g/dL (13.0-17.5); LYMPH # 3.4 x10^3/uL (1.0-4.8); LYMPH % 39 % (24-48); MEAN CORPUSCULAR HEMOGLOBIN 30 pg (25-35); MEAN CORPUSCULAR HGB CONC 33 g/dL (31-37); MEAN CORPUSCULAR VOLUME 91 fL (79-100); MONO # 0.8 x10^3/uL (0.0-1.1); MONO % 9 % (0-9); NEUT # 4.1 x10^3uL (1.8-7.7); NEUT % 48 % (31-73); PLATELET COUNT 145 x10^3/uL (140-400); RED BLOOD COUNT 4.57 x10^6/uL (4.30-5.70); RED CELL DISTRIBUTION WIDTH 13.9 % (11.5-14.5); WHITE BLOOD COUNT 8.7 x10^3/uL (4.0-11.0)
[2020-12-26 22:06] LABS: CALCIUM 8.9 mg/dL (8.5-10.1); CREATININE 1.2 mg/dL (0.7-1.3); GFR 64.9; POTASSIUM 4.2 mmol/L (3.5-5.1)
[2020-12-26 22:11] LABS: ALBUMIN 3.3 g/dL (3.4-5.0); TOTAL BILIRUBIN 0.1 mg/dL (0.2-1.0); TOTAL PROTEIN 6.7 g/dL (6.4-8.2)
--- NOTE | 2020-12-26 22:18 | RAD ---
Exam: Chest one view INDICATION: Syncope TECHNIQUE: Frontal view of the chest Comparisons: 07/06/2020 FINDINGS: Pacer with leads terminating the right heart, ventricle and coronary sinus. The cardiomediastinal silhouette and pulmonary vessels are within normal limits. The lung and pleural spaces are clear. IMPRESSION: No acute pulmonary process. Electronically signed by: Seth Garcia MD (12/26/2020 10:16 PM) JAMES
--- NOTE | 2020-12-26 22:25 | RAD ---
Exam: CT head and cervical spine INDICATION: Syncope TECHNIQUE: Sequential axial images through the head and cervical spine were obtained without the admi nistration of IV contrast. Exposure: One or more of the following in the visualized dose reduction techniques were utilized for this examination: 1. Automated exposure control 2. Adjustment of the MA and/or KV according to patient size 3. Use of iterative of reconstructive technique Comparisons: None FINDINGS: Head: No focal parenchymal lesion or hemorrhage is identified. There is no midline shift or sulcal effaceme nt. No acute vascular territory infarction is identified. San-white distinction is preserved. The ventricular system is within normal limits without compression hydrocephalus. The basal cisterns are well maintained. The visualized portions of the paranasal sinuses and mastoid air cells are well-pneumatized. No acute fractures. Cervical spine: Vertebral body heights and alignment are well-maintained. Fracture to the cervical spine is not identified. No significant spondylotic change in cervical spine. Visualized paraspinal soft tissues are unremarkable. IMPRESSION: 1. No acute intracranial abnormality. 2. Negative CT C-spine for acute traumatic injury. Electronically signed by: Seth Garcia MD (12/26/2020 10:23 PM) NINO
[2020-12-26 22:45] VITALS: BP 166/95
== END 2020-12-26 22:46 | disposition home or self-care (01) ==
LOC: ER 20:49
DX: R55 Syncope and collapse (principal); E11.9 Type 2 diabetes mellitus without complications; K21.9 Gastro-esophageal reflux disease without esophagitis; I10 Essential (primary) hypertension; F17.210 Nicotine dependence, cigarettes, uncomplicated; F12.10 Cannabis abuse, uncomplicated
CPT/HCPCS: 36415; 70450; 71045; 72125; 80053; 84484; 85025; 93005; 96360; 99285; J7030; 99283-25